=== PATIENT | female | born 1990 | race Caucasian/White ===

== ENCOUNTER 2022-09-17 12:54 | Outpatient (CLI) | payer OTHER, SELFPAY ==
--- NOTE | ~2022-09-17 | XR_ITS ---
XR abdomen/kub 1V 09/17/2022 13:09 Indication: Left lower abdominal pain Procedure: KUB Comparison: No prior studies for comparison. Findings: There is a catheter overlying the abdomen of uncertain origin, possibly ventriculoperitonea l. Clinically correlate. Nonobstructive bowel gas pattern. No evidence for renal stones. There are pe lvic phleboliths. No acute osseous abnormality. Impression: 1: No acute abdominal abnormality. Reviewed, dictated and finalized at location A. Impression: 1: No acute abdominal abnormality.
== END 2022-09-17 12:55 | disposition home or self-care (01) ==
PROVIDERS: PCP Family Medicine; Visit Provider Nurse Practitioner Family
DX: R10.32 Left lower quadrant pain (principal)
CPT/HCPCS: 74018

== ENCOUNTER 2023-07-10 13:22 | Outpatient (CLI) | payer OTHER, SELFPAY ==
[2023-07-10 14:38] LABS: HIV 1/2 Ab P24 Ag Result Negative (Negative)
[2023-07-10 15:39] LABS: Hepatitis B Surface Antigen Negative (Negative)
[2023-07-10 15:44] LABS: HAV RESULT Negative (Negative)
[2023-07-10 15:57] LABS: Hepatitis C Virus Antibody Negative (Negative)
[2023-07-11 09:42] LABS: Rapid Plasma Reagin Non-Reactive (NonReactive)
== END 2023-07-10 13:23 | disposition home or self-care (01) ==
LOC: ANHLAB 13:23
PROVIDERS: PCP Family Medicine; Visit Provider Obstetrics & Gynecology
DX: Z11.3 Encounter for screening for infections with a predominantly sexual mode of transmission (principal)
CPT/HCPCS: 36415; 86592; 86703; 86709; 86803; 87340; G0432

== ENCOUNTER 2023-10-06 15:33 | Outpatient (CLI) | payer OTHER, SELFPAY ==
--- NOTE | ~2023-10-06 | US_ITS ---
EXAMINATION: US thyroid DATE: 10/06/2023 16:00 INDICATION: Goiter. TECHNIQUE: Multiple ultrasound images of the thyroid were obtained. COMPARISON: Ultrasound 03/03/2018 FINDINGS: The right thyroid lobe measures 4.8 x 1.5 x 1.8 cm. The left thyroid lobe measures 5.6 x 1.3 x 1.6 c m. In the right thyroid lobe, there is a 10 mm solid, isoechoic, wider than tall nodule with periphe ral calcifications (TI-RADS TR4), stable from 03/03/18. In the right thyroid lobe, there is a 5 mm curtis id, hypoechoic, wider than tall nodule with smooth margins without echogenic foci (TR4). In the left thyroid lobe, there is a 12 mm solid, hypoechoic, wider than tall nodule with smooth margins without echogenic foci (TR4), increased from 6 mm on 03/03/18. In the left thyroid lobe, there is a 5 mm solid , hypoechoic, wider than tall nodule with smooth margins without echogenic foci (TR4). IMPRESSION: 1. Multinodular goiter. Thyroid ultrasound is recommended in one year. Reviewed, dictated and finalized at location A.
== END 2023-10-06 15:34 | disposition home or self-care (01) ==
LOC: ANHIMG 15:33
PROVIDERS: PCP Family Medicine; Visit Provider Family Medicine
DX: E04.2 Nontoxic multinodular goiter (principal)
CPT/HCPCS: 76536

== ENCOUNTER 2024-01-20 13:56 | Outpatient (CLI) | payer OTHER, SELFPAY ==
--- NOTE | ~2024-01-20 | XR_ITS ---
EXAMINATION: XR barium swallow modified DATE: 01/20/2024 14:20 INDICATION: Dysphagia. TECHNIQUE: The patient was given barium-containing material of multiple consistencies to swallow by t he speech pathologist while I performed fluoroscopy. Fluoroscopy exposure time was 0.9 minutes. The n umber of fluoroscopy images saved to the PACS was 1. Dose-area product was 0.507 Gy-cm^2. FINDINGS: The oral stage, pharyngeal stage, and cervical/esophageal stage of the swallow are normal. IMPRESSION: 1. Normal modified barium swallow. 2. Please refer to the speech therapy report for recommendations. Reviewed, dictated and finalized at location A.
--- NOTE | 2024-01-20 14:54 | REHSTMBS ---
Assessment and note entered by Mer Horne, [employer] Modified Barium Swallow Evaluation Feeding Type Recommended Oral Food Consistency Regular, Level 7 Liquid Consistency Thin (0) ST Clinical Summary MODIFIED BARIUM SWALLOW STUDY Patient reports she feels she has been becoming choked on both food and liquids in the past two months. She stated that she does not feel material enters the airway but that she can't get it down. As a result, she has begun taking more small bites and sips and now has developed a fear of becoming choked. The patient was viewed in the lateral position to the level of C5/C6. She was presented with uncontrolled sips of thin liquid contrast medium per straw first, then pudding mixed with semi- solid contrast medium, then both cracker pieces and fruit cocktail pieces coated with the semi- solid mixture. Patient elicited quick swallows with under-epiglottal coating during the first several swallows of thin liquid per straw, not replicated later in the session and not observed on any of the other presentations. Following these, all additional swallows for food and liquids were judged to be within normal limits. Results suggest the patient's swallowing skills are within normal limits. She was instructed to use head flexion (chin tuck) to assist with safe, comfortable swallowing while consuming meats and liquids and she voiced good understanding. No further Speech Therapy is indicated at this time. Thank you for this referral.
== END 2024-01-20 13:57 | disposition home or self-care (01) ==
LOC: ANHIMG 13:59
PROVIDERS: PCP Nurse Practitioner Family; Visit Provider Nurse Practitioner Family
DX: R13.10 Dysphagia, unspecified (principal); R11.0 Nausea
CPT/HCPCS: 92611

== ENCOUNTER 2024-02-11 02:30 | Day surgery (SDC) | payer OTHER, SELFPAY ==
[2024-01-23 09:27] VITALS: BMI 24.8
[2024-02-11 12:05] VITALS: BP 118/76; PULSE 81; RESP 16; TEMP 37.1; O2SAT 99; BMI 23.4
--- NOTE | 2024-02-11 12:19 | PM.HPGS ---
History of Present Illness History of Present Illness Consent: Risks, benefits, and alternatives have been discussed and questions answered. Patient agrees to proceed with procedure. Chief complaint: Nausea, Dysphagia Narrative: Alba Olvera is a 33 year old female here for egd, chronic nausea, had some dysphagia but resolved. Review of Systems Review of Systems: All systems reviewed & are unremarkable except as noted in HPI and below PMFSH Past Medical History Medical History Anxiety Bipolar disorder delivery delivered Depression Pseudotumor cerebri Pseudotumor cerebri PTSD (post-traumatic stress disorder) Surgical History Surgical History H/O brain surgery H/O dilation and curettage H/O: hysterectomy Family History Family History Other Depression Social History Social History (Updated 07/08/23 @ 14:22 by Mandy Huggins MA) Years smoked: 10 Smoking status: Never smoker Tobacco type: e-cigarettes/vaping Alcohol intake: current Substance use: former Substance use type: prescription drug Current Housing: Decline to Answer Concerned About Future Housing: Decline to Answer Difficulty Paying Gas/Electric Bills: Decline to Answer Difficulty Paying for Meds: Decline to Answer Currently Unemployed: Decline to Answer Education: Decline to Answer Difficulty w/ Childcare or Family Care: Decline to Answer Living arrangements: with family Additional living arrangements comments: kids Occupation/Education: unemployed Gender identity (if verbalized by the patient): Female Sexual Orientation (if Verbalized by the Patient): Straight or Heterosexual Meds Home Medications and Allergies Home Medications Medication Instructions Recorded Confirmed Type alprazolam 1 mg tablet 1 mg PO TID PRN Anxiety 05/14/22 02/11/24 History escitalopram oxalate 20 mg tablet 20 mg PO DAILY 05/14/22 02/11/24 History (Lexapro) lamotrigine 200 mg tablet 200 mg PO BID 05/14/22 02/11/24 History (Lamictal) tizanidine 4 mg capsule 4 mg PO QHS PRN muscle spasms 05/14/22 02/11/24 History fluconazole 150 mg tablet 150 mg PO WEEKLY 1 month #5 tabs 07/25/22 02/11/24 Rx (Diflucan) lubiprostone 24 mcg capsule 24 mcg PO BID #60 caps 01/09/24 02/11/24 Rx (Amitiza) promethazine 25 mg tablet 25 mg PO BID PRN nausea #60 tabs 01/09/24 02/11/24 Rx buprenorphine 8 mg-naloxone 2 mg 1 tablet sublingual DAILY 01/23/24 02/11/24 History sublingual tablet linaclotide 290 mcg capsule 290 mcg PO DAILY 01/23/24 02/11/24 History (Linzess) rizatriptan 5 mg tablet 5 mg PO DAILY PRN migraines 01/23/24 02/11/24 History Allergies Allergy/AdvReac Type Severity Reaction Status Date / Time sumatriptan Allergy Unknown SOB, CHEST Verified 02/11/24 12:10 PRESSURE Vital Signs Vital Signs - 24 hr 02/11/24 12:05 Temperature 98.7 F Pulse Rate 81 Respiratory Rate 16 Blood Pressure 118/76 Pulse Oximetry 99 Oxygen Delivery Room Air Exam Const: General: comfortable and no acute distress HENMT: Face/Nose/Sinus: Normal nares present Eyes: General: appearance normal, both eyes and all related structures Neck: Neck: no JVD Resp: Auscultation: clear to auscultation bilaterally Cardio: Rate: regular rate Rhythm: regular rhythm GI: Inspection: non-distended GI Palp: Yes Soft to palpation Skin: General skin exam: normal color Neuro: General: gait normal Speech: normal speech Extrem: General: normal to inspection Psych: Mental Status: mental status grossly normal Assessment and Plan Assessment and plan (1) Nausea: Code(s): R11.0 - Nausea Status: Acute Assessment and Plan: egd with bx
--- NOTE | 2024-02-11 12:28 | WPDANESEPPF ---
Anes - Initial Pre Proc Eval Procedure: Operation Date: 02/11/24 13:30 Proposed Procedures p Esophagogastroduodenoscopy - Pedro Narvaez MD Date/Time: 02/11/24 12:28 Surgeon: Pedro Narvaez MD Pre Op Diagnosis: Nausea, Dysphagia Patient Data Age: 33 Gender: F Height: 1.7 m Weight: 68 kg Last Vital Signs Temp 98.7 F 02/11/24 12:05 Pulse 81 02/11/24 12:05 Resp 16 02/11/24 12:05 BP 118/76 02/11/24 12:05 Pulse Ox 99 02/11/24 12:05 O2 Del Method Room Air 02/11/24 12:05 Allergies Allergy/AdvReac Type Severity Reaction Status Date / Time sumatriptan Allergy Unknown SOB, CHEST Verified 02/11/24 12:10 PRESSURE Home Medications Medication Instructions Recorded Confirmed Type alprazolam 1 mg tablet 1 mg PO TID PRN Anxiety 05/14/22 02/11/24 History escitalopram oxalate 20 mg tablet 20 mg PO DAILY 05/14/22 02/11/24 History (Lexapro) lamotrigine 200 mg tablet 200 mg PO BID 05/14/22 02/11/24 History (Lamictal) tizanidine 4 mg capsule 4 mg PO QHS PRN muscle spasms 05/14/22 02/11/24 History fluconazole 150 mg tablet 150 mg PO WEEKLY 1 month #5 tabs 07/25/22 02/11/24 Rx (Diflucan) lubiprostone 24 mcg capsule 24 mcg PO BID #60 caps 01/09/24 02/11/24 Rx (Amitiza) promethazine 25 mg tablet 25 mg PO BID PRN nausea #60 tabs 01/09/24 02/11/24 Rx buprenorphine 8 mg-naloxone 2 mg 1 tablet sublingual DAILY 01/23/24 02/11/24 History sublingual tablet linaclotide 290 mcg capsule 290 mcg PO DAILY 01/23/24 02/11/24 History (Linzess) rizatriptan 5 mg tablet 5 mg PO DAILY PRN migraines 01/23/24 02/11/24 History Patient hx anesthesia problems: none Family hx anesthesia problems: none Results Review: All pre-operative results and documents have been reviewed as part of the pre-operative evaluation. [facility] Past Medical History Medical History Anxiety Bipolar disorder delivery delivered Depression Pseudotumor cerebri Pseudotumor cerebri PTSD (post-traumatic stress disorder) Surgical History Surgical History H/O brain surgery H/O dilation and curettage H/O: hysterectomy Family History Family History Other Depression Social History Social History (Updated 07/08/23 @ 14:22 by Mandy Huggins MA) Years smoked: 10 Smoking status: Never smoker Tobacco type: e-cigarettes/vaping Alcohol intake: current Substance use: former Substance use type: prescription drug Current Housing: Decline to Answer Concerned About Future Housing: Decline to Answer Difficulty Paying Gas/Electric Bills: Decline to Answer Difficulty Paying for Meds: Decline to Answer Currently Unemployed: Decline to Answer Education: Decline to Answer Difficulty w/ Childcare or Family Care: Decline to Answer Living arrangements: with family Additional living arrangements comments: kids Occupation/Education: unemployed Gender identity (if verbalized by the patient): Female Sexual Orientation (if Verbalized by the Patient): Straight or Heterosexual Anes - Eval Final PreProcedure Day of Procedure 02/11/24 12:28 Patient weight: normal Heart: regular rate and rhythm Lungs: clear to auscultation Airway: Mallampati scale class II Neurological: alert and oriented Last oral intake: >/= 8 hours ASA classification: III Emergent: no Anesthetic plan: proceed Anesthesia type and monitoring: general GIVS and standard monitoring Results Review: All pre-operative results and documents have been reviewed as part of the pre-operative evaluation. Informed Consent: The patient's anesthetic plan and its attendant risks and benefits were discussed with the patient/family/POA. Questions were solicited and answers provided to the satisfaction of the patient/family/POA.
[2024-02-11] MEDS: LACTATED RINGERS 1,000 ML 150 ML IV CONT (12:29)
[2024-02-11 13:03] VITALS: BP 121/76; PULSE 65; RESP 13; O2SAT 100
[2024-02-11 13:13] VITALS: BP 120/78; PULSE 64; RESP 18; O2SAT 100
[2024-02-11 13:23] VITALS: BP 121/74; PULSE 75; RESP 20; O2SAT 100
== END 2024-02-11 13:30 | disposition home or self-care (01) ==
PROVIDERS: PCP Nurse Practitioner Family; Referring Provider Nurse Practitioner Family; Visit Provider Internal Medicine Gastroenterology
PROC: 0DJ08ZZ Inspection of Upper Intestinal Tract, Via Natural or Artificial Opening Endoscopic (ICD-10-PCS; CPT 43235; principal; 2024-02-11 13:30)
DX: K29.80 Duodenitis without bleeding (principal); K29.50 Unspecified chronic gastritis without bleeding; F41.9 Anxiety disorder, unspecified; F31.9 Bipolar disorder, unspecified; G93.2 Benign intracranial hypertension; F43.10 Post-traumatic stress disorder, unspecified; F17.290 Nicotine dependence, other tobacco product, uncomplicated; Z98.890 Other specified postprocedural states
CPT/HCPCS: 43239; 88305; J2001; J2704; J7120

== ENCOUNTER 2024-10-11 13:18 | Outpatient (CLI) | payer OTHER, SELFPAY ==
--- NOTE | ~2024-10-11 | MMUS_ITS ---
EXAMINATION: [facility] diagnostic january BI w carmen, US breast LT limited HISTORY: Left breast lump TECHNIQUE: 3-D tomosynthesis images of the breasts were performed and synthetic 2-D images were gener ated. CAD analysis was submitted and interpreted. High resolution limited left breast ultrasound was performed. COMPARISON: None BREAST PARENCHYMAL COMPOSITION:Dense: The breasts are extremely dense, which lowers the sensitivity o f mammography. FINDINGS: MAMMOGRAPHIC FINDINGS: No mass lesion or distortion seen in either breast. No mammographic abnormality identified. No suspic ious microcalcifications. ULTRASOUND: There is a questionable 1.7 x 2.4 x 0.5 cm superficial parallel mass, with relative appearance of fib roglandular tissue with possible thin capsule. No posterior shadowing evident. IMPRESSION: Questionable 1.7 x 2.4 x 0.5 cm benign-appearing mass at the 1:00 position left breast. Possible sma ll hamartoma versus focally dense fiber glandular tissue are considerations. This is likely benign, h owever 6 month follow-up ultrasound recommended to reassess additional stability. BI-RADS category 3, probably benign findings. Reviewed, dictated and finalized at location [facility]. IMPRESSION: Questionable 1.7 x 2.4 x 0.5 cm benign-appearing mass at the 1:00 position lef t breast. Possible small hamartoma versus focally dense fiber glandular tissue are considerations. This is likely benign, however 6 month follow-up ultrasound recommended to reassess additional stability. BI-RADS category 3, probably benign findings.
--- OUTSIDE RECORDS SUMMARY | 2024-10-11 13:23 | XMS_ITS | Clinical Summary ---
Author Organization [facility] Address [address] [place] [id number] Care Team Providers Care Endodontist Name Role Phone Socorro Patel MD Primary Care Provider [phone] Social History Tobacco Use Types Packs/Day Years Used Date Smoking Tobacco: Never Assessed Comments Unknown Sex and Gender Information Value Date Recorded Sex Assigned at Not on file Legal Sex Female 7:58 PM CDT Gender Identity Not on file Sexual Orientation Not on file Plan of Treatment Health Maintenance Due Date Last Done Comments Cervical Cancer Screening Pa p Smear (Age 30 to 64) Every 3 Years 1989 Annual Physical 1992 Hepatitis C 2007 DTaP, Tdap and Td Vaccines ( 1 - Tdap) 2008 Hepatitis B Vaccines (1 of 3 - 19+ 3-dose series) 2008 Cervical Cancer Screening Pa p with HPV Testing (Age 30 to 64) Every 5 Years 2019 Cervical Cancer Screening with HPV 2019 COVID-19 Vaccine (2023-2 5 season) 2024 HPV Vaccines Aged Out No longer eligi ble based on patient's age to complete this topic Meningococcal B Vaccine Aged Out No l onger eligible based on patient's age to complete this topic Meningococcal Vaccine Aged Out No braxton tarik eligible based on patient's age to complete this topic Pneumococcal Vaccine: Pediat rics (0 to 5 Years) and At-Risk Patients (6 to 49 Years) Aged Out No longer eligible b ased on patient's age to complete this topic RSV Immunizations Under 20 Months Aged Out No longer eligible based on patient's age to complete this topic Care Teams Endodontist Relationship Specialty Start Date End Date Socorro Patel MD [address] [place] [address] [place] [address] (work) PCP - General 12/14/13
--- OUTSIDE RECORDS SUMMARY | 2024-10-11 13:23 | XMS_ITS | Data Portability ---
Author Organization [place] [employer], Main Office Address [address] [place] [address] Assessment No assessment recorded. Plan of Treatment Reminders Order Date Submit Date Provider Last Modified By Organization Details Last Modified Time Details Appointments Any 30 2024 01:00P Khloe Estrada NP Not available Not available Not available Lab TSH, serum or plasma 2024 025 alor [facility] (Lab), [address] [place], [address], 10/08/2024 08:53:54 CBC w/ auto diff 2024 025 [facility] (Lab), [address] [place], [address], 10/08/2024 03:51:00 CMP, serum or plasma [address] (Lab), [address] [place], [address], 10/07/2024 16:29:14 vitamin D, 25-hydrox y, total, serum [address] (Lab), [address] [place], [address], 10/07/2024 16:28:28 TSH, serum or plasma 2023 024 KIERRA Not available 09/15/2023 19:59:11 hepatic function panel, serum 2023 024 KIERRA Not available 09/15/2023 19:37:48 BMP, serum or plasma 2023 KIERRA Not available 09/15/2023 19:37:53 CBC w/ auto diff 2023 KIERRA Not available 09/15/2023 19:21:26 Referral gastroent erologist referral - Please call patient to schedule an appointme nt. Thank you. [address] [facility], [address], [address], [place], [address], 01/13/2024 08:36:02 Procedures None recorded. Surgeries None recorded. Imaging US, thyroid - *Please call pt to schedule* 2023 KIERRA [facility], [address], [address], [place], [address], 10/06/2023 17:26:17 Medication Orders magnesium citrate oral solution 2023 024 [facility], [address] [place] [address] , [address], [place], [place], [id number], 10/05/2024 14:25:28 morphine ER 15 mg tablet,ex tended release [email or web address] , [address], [place], [place], [id number], 12/16/2023 14:04:42 oxycodone -acetamin ophen 10 mg-325 mg tablet [email or web address] , [address], [place], [place], [id number], 12/16/2023 14:04:46 Patient TargetsNo targets recorded. Patient InstructionsNo instructions recorded. Reason for Referral [employer] Referral for Hiatal hernia hiatal hernia, continued nausea Please call patient to schedule an appointment. Thank you. Referring Physician: Jakub Wallace, [facility] Medicine, Encounter Date: 12/16/2023 Results Created Date Observation Date Name Description Value Unit Range Abnormal Flag Note LastModifiedBy Organization Detail LastModifiedTime 09/15/19 24 09/15/2023 CBC/C OMPLE TE BLD COUNT W/DIF F white blood cells 4.8 x10'3 /uL 4.2-10 .8 Not Available [facility] (Lab) [address] [place], [address], 09/15/2023 19:21:25 09/15/19 24 09/15/2023 CBC/C OMPLE TE BLD COUNT W/DIF F red blood cells 4.46 x10'6 /uL 3.80-5 .20 Not Available [facility] (Lab) [address] [place], [address], 09/15/2023 19:21:25 09/15/19 24 09/15/2023 CBC/C OMPLE TE BLD COUNT W/DIF F hemoglobin 14.3 g/dL 12.0-1 5.6 Not Available [facility] (Lab) [address] [place], [address], 09/15/2023 19:21:25 09/15/19 24 09/15/2023 CBC/C OMPLE TE BLD COUNT W/DIF F hematocrit 41.4 % 35.7-4 5.7 Not Available [facility] (Lab) [address] [place], [address], 09/15/2023 19:21:25 09/15/19 24 09/15/2023 CBC/C OMPLE TE BLD COUNT W/DIF F mean red cell volume 92.8 fL 82.0-9 9.0 Not Available [facility] (Lab) [address] [place], [address], 09/15/2023 19:21:25 09/15/19 24 09/15/2023 CBC/C OMPLE TE BLD COUNT W/DIF F mean red cell hemoglobin 32.1 pg 27.0-3 3.0 Not Available [facility] (Lab) [address] [place], [address], 09/15/2023 19:21:25 09/15/19 24 09/15/2023 CBC/C OMPLE TE BLD COUNT W/DIF F mean RBC HGB concentratio n 34.5 g/dL 31.0-3 6.0 Not Available [facility] (Lab) [address] [place], [address], 09/15/2023 19:21:25 09/15/19 24 09/15/2023 CBC/C OMPLE TE BLD COUNT W/DIF F red cell distribution width 11.6 % 11.8-1 5.5 low Not Available [facility] (Lab) [address] [place], [address], 09/15/2023 19:21:25 09/15/19 24 09/15/2023 CBC/C OMPLE TE BLD COUNT W/DIF F platelets 253 x10'3 /uL 150-40 0 Not Available [facility] (Lab) [address] [place], [address], 09/15/2023 19:21:25 09/15/19 24 09/15/2023 CBC/C OMPLE TE BLD COUNT W/DIF F mean platelet volume 11.0 fL 9.0-12 .4 Not Available [facility] (Lab) [address] [place], [address], 09/15/2023 19:21:25 09/15/19 24 09/15/2023 CBC/C OMPLE TE BLD COUNT W/DIF F neutrophils 55.5 % 39.0-7 2.0 Not Available [facility] (Lab) [address] [place], [address], 09/15/2023 19:21:25 09/15/19 24 09/15/2023 CBC/C OMPLE TE BLD COUNT W/DIF F lymphocytes 29.0 % 16.0-4 7.0 Not Available [facility] (Lab) [address] [place], [address], 09/15/2023 19:21:25 09/15/19 24 09/15/2023 CBC/C OMPLE TE BLD COUNT W/DIF F monocytes 12.0 % 5.0-12 .0 Not Available [facility] (Lab) [address] [place], [address], 09/15/2023 19:21:25 09/15/19 24 09/15/2023 CBC/C OMPLE TE BLD COUNT W/DIF F eosinophils 2.7 % 1.0-7. 0 Not Available [facility] (Lab) [address] [place], [address], 09/15/2023 19:21:25 09/15/19 24 09/15/2023 CBC/C OMPLE TE BLD COUNT W/DIF F basophils 0.6 % 0.0-2. 0 Not Available [facility] (Lab) [address] [place], [address], 09/15/2023 19:21:25 09/15/19 24 09/15/2023 CBC/C OMPLE TE BLD COUNT W/DIF F immature granulocytes 0.2 % 0.00-0 .50 Not Available [facility] (Lab) [address] [place], [address], 09/15/2023 19:21:25 09/15/19 24 09/15/2023 CBC/C OMPLE TE BLD COUNT W/DIF F neutrophils, absolute count 2.67 x10'3 /uL 1.5-8. 0 Not Available [facility] (Lab) [address] [place], [address], 09/15/2023 19:21:25 09/15/19 24 09/15/2023 CBC/C OMPLE TE BLD COUNT W/DIF F lymphocytes, absolute count 1.40 x10'3 /uL 1.07-3 .43 Not Available [facility] (Lab) [address] [place], [address], 09/15/2023 19:21:25 09/15/19 24 09/15/2023 CBC/C OMPLE TE BLD COUNT W/DIF F monocytes, absolute count 0.58 x10'3 /uL 0.29-0 .99 Not Available [facility] (Lab) [address] [place], [address], 09/15/2023 19:21:25 09/15/19 24 09/15/2023 CBC/C OMPLE TE BLD COUNT W/DIF F eosinophils, absolute count 0.13 x10'3 /uL 0.02-0 .53 Not Available [facility] (Lab) [address] [place], [address], 09/15/2023 19:21:25 09/15/19 24 09/15/2023 CBC/C OMPLE TE BLD COUNT W/DIF F basophils, absolute count 0.03 x10'3 /uL 0.01-0 .08 Not Available [facility] (Lab) [address] [place], [address], 09/15/2023 19:21:25 09/15/19 24 09/15/2023 CBC/C OMPLE TE BLD COUNT W/DIF F immature granulocytes ,absolute 0.01 x10'3 /uL 0.00-0 .05 Not Available [facility] (Lab) [address] [place], [address], 09/15/2023 19:21:25 09/15/19 24 09/15/2023 CBC/C OMPLE TE BLD COUNT W/DIF F nucleated red blood cells 0.0 % -0 Not Available [facility] (Lab) [address] [place], [address], 09/15/2023 19:21:25 09/15/19 24 09/15/2023 CBC/C OMPLE TE BLD COUNT W/DIF F NRBC# 0.00 x10'3 /uL Not Available [facility] (Lab) [address] [place], [address], 09/15/2023 19:21:25 09/15/19 24 09/15/2023 HEPAT IC/LI CARLTON PANEL alkaline phosphatase 39 U/L 38-126 Not Available [facility] (Lab) [address] [place], [address], 09/15/2023 19:37:48 09/15/19 24 09/15/2023 HEPAT IC/LI CARLTON PANEL alanine aminotransfe rase 15 U/L 0-35 Not Available [facility] (Lab) [address] [place], [address], 09/15/2023 19:37:48 09/15/19 24 09/15/2023 HEPAT IC/LI CARLTON PANEL aspartate aminotransfe rase 26 U/L 15-37 Not Available [facility] (Lab) [address] [place], [address], 09/15/2023 19:37:48 09/15/19 24 09/15/2023 HEPAT IC/LI CARLTON PANEL bilirubin, total 0.70 mg/dL 0.20-1 .30 Not Available [facility] (Lab) [address] [place], [address], 09/15/2023 19:37:48 09/15/19 24 09/15/2023 HEPAT IC/LI CARLTON PANEL bilirubin, conjugated (direct) 0.00 mg/dL 0.00-0 .30 Not Available [facility] (Lab) [address] [place], [address], 09/15/2023 19:37:48 09/15/19 24 09/15/2023 HEPAT IC/LI CARLTON PANEL biliurubin,u ncong. (indirect) 0.40 mg/dL 0.00-1 .1 Not Available [facility] (Lab) [address] [place], [address], 09/15/2023 19:37:48 09/15/19 24 09/15/2023 HEPAT IC/LI CARLTON PANEL total protein 6.9 g/dL 6.3-8. 2 Not Available [facility] (Lab) [address] [place], [address], 09/15/2023 19:37:48 09/15/19 24 09/15/2023 HEPAT IC/LI CARLTON PANEL albumin 4.7 g/dL 3.4-5. 0 Not Available [facility] (Lab) [address] [place], [address], 09/15/2023 19:37:48 09/15/19 24 09/15/2023 HEPAT IC/LI CARLTON PANEL globulin 2.2 g/dL 2.6-4. 2 low Not Available [facility] (Lab) [address] [place], [address], 09/15/2023 19:37:48 09/15/19 24 09/15/2023 HEPAT IC/LI CARLTON PANEL A/G ratio 2.1 ratio 1.0-2. 0 high Not Available [facility] (Lab) [address] [place], [address], 09/15/2023 19:37:48 09/15/19 24 09/15/2023 BASIC METAB OLIC PANEL sodium 139 mmol/ L 137-14 5 Not Available [facility] (Lab) [address] [place], [address], 09/15/2023 19:37:53 09/15/19 24 09/15/2023 BASIC METAB OLIC PANEL potassium 3.8 mmol/ L 3.5-5. 1 Not Available [facility] (Lab) [address] [place], [address], 09/15/2023 19:37:53 09/15/19 24 09/15/2023 BASIC METAB OLIC PANEL chloride 105 mmol/ L 98-107 Not Available [facility] (Lab) [address] [place], [address], 09/15/2023 19:37:53 09/15/19 24 09/15/2023 BASIC METAB OLIC PANEL carbon dioxide 28 mmol/ L 22-30 Not Available [facility] (Lab) [address] [place], [address], 09/15/2023 19:37:53 09/15/19 24 09/15/2023 BASIC METAB OLIC PANEL anion gap 9.8 mmol/ L 14-22 low Not Available [facility] (Lab) [address] [place], [address], 09/15/2023 19:37:53 09/15/19 24 09/15/2023 BASIC METAB OLIC PANEL glucose 95 mg/dL 70-99 Not Available [facility] (Lab) [address] [place], [address], 09/15/2023 19:37:53 09/15/19 24 09/15/2023 BASIC METAB OLIC PANEL BUN 8 mg/dL 8-19 Not Available [facility] (Lab) [address] [place], [address], 09/15/2023 19:37:53 09/15/19 24 09/15/2023 BASIC METAB OLIC PANEL creatinine 0.85 mg/dL 0.66-1 .25 Not Available [facility] (Lab) [address] [place], [address], 09/15/2023 19:37:53 09/15/19 24 09/15/2023 BASIC METAB OLIC PANEL GFR >60 Refer ence Range : Saxton ge GFR Healt hy Adult : >60 mL/mi n/1.7 3 m2 Chron ic Kidne y Disea se: 15-60 mL/mi n/1.7 3 m2 Kidne y Failu re: <15/m L/min /1.73 m2 www.n iddk. nih.g ov The MDRD study equat ion has not been valid ated in child amalia <18 years of age; pregn ant women ; the elder ly >85 years of age; or in some racia l or ethni c subgr oups, such as Hispa nics. Outsi de the valid ated adin eters , estim ated GFR is less accur ate, requi ring clini bina judgm ent on a case- by-ca se basis . Clini bina inter preta tion for other races and ages must be made by the clini aria. The MDRD study equat ion has not been valid ated for the evalu ation of serum creat inine relat ed to nutri senthil l statu s or medic ation usage . For perso ns <18 years of age, a pedia tric GFR calcu lator is avail able on the [facility] websi te: https ://tomás gillis.thomas contreras/jaswant souza s/orquideao qi/gf r_cal culat or Not Available [facility] (Lab) [address] [place], [address], 09/15/2023 19:37:53 09/15/1909/15/2023 BASIC METAB OLIC PANEL calcium 9.9 mg/dL 8.4-10 .2 Not Available [facility] (Lab) [address] [place], [address], 09/15/2023 19:37:53 09/15/1909/15/2023 TSH thyroid-stim ulating hormone 0.860 uIU/m L 0.465- 4.680 Not Available [facility] (Lab) [address] [place], [address], 09/15/2023 19:59:11 10/06/19 24 10/06/2023 US, thyro id No observ ation record ed. [email or web address] [facility] [address] [facility] [address], [place], [address], 10/07/2023 16:48:24 01/20/20 24 01/20/2024 melania parsons ow study No observ ation record ed. [email or web address] [facility] [address] [facility] [facility] [address], [place], [address], 01/22/2024 23:30:13 Result Notes None recorded. Problems Name Problem SNOMED Code Status Onset Date Resolution Date Notes Provider Name and Address Organization Details Recorded Time Irritable bowel syndrome 67495345 Active Not Available [facility] 4 19:32:00 Ovarian hyperstimu lation syndrome 897103884 Active Not Available [facility] 4 19:32:00 Constipati on 57761505 Active [facility] 4 19:32:00 Acute sinusitis 69985084 Active Not Available [facility] 4 19:32:00 Backache with radiating pain 093264006 Active Not Available [facility] 4 19:32:00 History of idiopathic intracrani al hypertensi on 8928620167861 9108 Active 2020 Not Available [facility] 4 19:32:00 Pain in throat 812926150 Active Not Available [facility] 4 19:32:00 Non-neopla stic nevus 991635296 Active Not Available [facility] 4 19:32:00 Abdominal pain 47495832 Active Not Available [facility] 4 19:32:00 Sciatica 33722451 Active Not Available [facility] 4 19:32:01 Thyroid nodule 549673274 Active Not Available [facility] 4 19:32:01 Headache 19474257 Active Not Available [facility] 4 19:32:01 Myofascial pain 025181443 Active Not Available [facility] 4 19:32:01 Multiple laceration s 316756571 Active Not Available [facility] 4 19:32:01 Adnexal tenderness 039823980 Active Not Available [facility] 4 19:32:01 Scoliosis deformity of spine 889863802 Active Not Available [facility] 4 19:32:01 Secondary female infertilit y 89928287 Active Not Available [facility] 4 19:32:01 Vaginitis 66548105 Active Not Available [facility] 4 19:32:01 Bronchitis 17023590 Active Not Available [facility] 4 19:32:01 Genital herpes simplex 76009350 Active Not Available [facility] 4 19:32:01 Depressive disorder 74898011 Active Not Available [facility] 4 19:32:01 Sinusitis 77530384 Active Not Available [facility] 4 19:32:01 Goiter 8293799 Active Not Available [facility] 4 19:32:01 Migraine 38129307 Active Not Available [facility] 4 19:32:01 Fever 055486171 Active Not Available [facility] 4 19:32:01 Menorrhagi a 083286582 Active Not Available [facility] 4 19:32:01 Sensory disturbanc e in limb 600441371 Active Not Available [facility] 4 19:32:01 Hemochroma tosis 973327298 Active Not Available [facility] 4 19:32:01 Dysphagia 17353586 Active Not Available [facility] 4 19:32:01 Cervicovag inal cytology: Low grade squamous intraepith elial lesion 391869985 Active Not Available [facility] 4 19:32:01 Abnormal anal Papanicola ou smear 718073977 Active Not Available [facility] 4 19:32:01 Seasonal allergy 064179207 Active Not Available [facility] 4 19:32:01 Anxiety 12641024 Active Not Available [facility] 4 19:32:01 Carpal tunnel syndrome 11135881 Active Not Available [facility] 4 19:32:01 Vulvitis 11822282 Active Not Available [facility] 4 19:32:01 Chronic endometrit is 74726125 Active Not Available [facility] 4 19:32:01 Supraventr icular tachycardi a 2711146 Active Not Available [facility] 4 19:32:01 Otitis media 75387671 Active Not Available [facility] 4 19:32:01 Urinary tract infectious disease 31939647 Active Not Available [facility] 4 19:32:01 Candidal vulvovagin itis 42679385 Active Not Available [facility] 4 19:32:01 Moderate bipolar disorder 50428191 Active Not Available [facility] 4 19:32:01 Cyst of ovary 22290957 Active Not Available [facility] 4 19:32:01 Loss of appetite 01843674 Active Not Available [facility] 4 19:32:01 Irregular periods 80785179 Active Not Available [facility] 4 19:32:01 Fatigue 41550457 Active Not Available [facility] 4 19:32:01 Urge incontinen ce of urine 93698389 Active Not Available [facility] 4 19:32:01 Degenerati on of lumbar interverte bral disc 22441352 Active 2022 Not Available [facility] 4 19:32:01 Left lower quadrant pain 412820210 Active 2022 Not Available [facility] 4 19:32:01 Chronic idiopathic constipati on 85974024 Active 2022 Not Available [facility] 4 19:32:01 Therapeuti c opioid induced constipati on 7134648554065 02 Active 2022 Not Available [facility] 4 19:32:00 Ventriculo peritoneal shunt Active 2022 Not Available [facility] 4 19:32:01 Nausea 211776459 Active 2022 Not Available [facility] 4 19:32:01 Acne 32987555 Active 2022 Not Available [facility] 4 19:32:00 Elevated blood-pres sure reading without diagnosis of hypertensi on 878126334 Active 2023 Socorro Patel MD [address] [facility], [facility] [address], [place], [address] , [facility] 4 09:15:36 Herpes labialis 6826966 Active 2023 Socorro Patel MD [address] [facility], [facility] [address], [place], [address] , [facility] 4 17:42:06 Hiatal hernia 36684057 Active 2023 GARY Hnery [address] [facility] [place] [address], [place], [address] , [facility] 4 14:27:31 Vitamin D deficiency 62404604 Active 2024 GARY Alberto [address] [facility], [place] [address], [place], [address] , [facility] 5 14:49:37 Problem Notes None recorded. Procedures Surgical History Date Name Laterality Status Provider Name and Address Organization Details Recorded Time 9 CARDIOTHORACIC SURGEON Surgery completed Not Available [facility] 08/01/19 06:40:12 5 CARDIOTHORACIC SURGEON Surgery completed Not Available [facility] 08/01/19 06:40:12 5 CARDIOTHORACIC SURGEON Surgery completed Not Available [facility] 08/01/19 06:40:12 4 CARDIOTHORACIC SURGEON Surgery completed Not Available [facility] 08/01/19 06:40:12 3 CARDIOTHORACIC SURGEON Procedure completed Not Available [facility] 2022 06:40:12 2 CARDIOTHORACIC SURGEON Surgery completed Not Available [facility] 08/01/19 23 06:40:12 1 CARDIOTHORACIC SURGEON Surgery completed Not Available [facility] 08/01/19 06:40:12 0 CARDIOTHORACIC SURGEON Surgery completed Not Available [facility] 08/01/19 06:40:12 other completed Not Available [facility] 06/2022 06:40:12 section completed Not Available [facility] 07/31/2022 06:40:12 Imaging Results Imaging Date Name Status LastModified by Organiz ation Details LastModified Time 10/06/2023 US, thyroid completed llalor [facility] [address] [facility] [address], [address], 10/07/2023 16:48:24 01/20/2024 barium swallow study completed [facility] [address] [place] [address] [address], [place], [address], 01/22/2024 23:30:13 Procedure Notes None recorded. Medical Equipment None Reported. Allergies Allergen ID Allergen Name Allergen Category Reaction Reaction Severity Criticality Documentation Date Start Date Code Code System Note Provider Name and Address Organization Details Recorded Time 64156 Imitrex medicatio n chest pain severe Not available 07/31/2022 98254 3 RxNorm can't breat he Not Available formerly [facility] 3 06:53:46 19527 sumatript an medicatio n vomiting severe Not available 07/31/2022 03228 RxNorm Not Available formerly [facility] 3 06:53:46 01680 Maxalt medicatio n chest pain severe Not available 07/31/2022 88678 8 RxNorm Not Available formerly [facility] 3 06:53:46 Medications Name Sig Start Date Stop Date Status Note LastModified by Organization Details LastModified Time quetiapin e 25 mg tablet 1 po qhs x 7 day then increase to 2 po qhs x 7 days then increase to 3 po qhs x 7 days then increase to 4 po qhs 01/10 completed Not Available Not Available Not Available fluoxetin e 40 mg capsule 1 po qday 04/16 completed Not Available Not Available Not Available cyclobenz aprine 10 mg tablet 1 po tid prn spasm 03/21 completed Not Available Not Available Not Available tretinoin 0.1 % topical cream APPLY TO AFFECTED AREA(S) EVERY NIGHT AT BEDTIME active Not Available Not Available No t Available amoxicill in 500 mg capsule Take 2 capsules PO every 8 hours x 10 days active Not Available Not Available No t Available furosemid e 40 mg tablet 09/09 completed Not Available Not Available Not Available Miralax 17 gram/dose oral powder 1 capful in liquid po qday prn constipa tion active Not Available Not Available No t Available Levbid 0.375 mg tablet,ex tended release Take 1 tablet 3 times a day by oral route as needed. 2012 active Not Available Not Available Not Avai lable fentanyl 50 mcg/hr transderm al patch Apply 1 patch every 72 hours by transder mal route. 03/21 completed Not Available Not Available Not Available oxcarbaze pine 150 mg tablet 10/05 completed Not Available Not Available Not Available venlafaxi ne ER 37.5 mg capsule,e xtended release 24 hr 01/10 completed Not Available Not Available Not Available doxycycli ne hyclate 100 mg capsule 1 po qday 10/05 completed Not Available Not Available Not Available lamotrigi ne 200 mg tablet TAKE 1 TABLET BY MOUTH TWICE DAILY FOR 3 DAYS active Not Available Not Available No t Available nicotine 14 mg/24 hr daily transderm al patch 10/05 completed Not Available Not Available Not Available clindamyc in HCl 300 mg capsule TAKE 1 CAPSULE BY MOUTH FOUR TIMES DAILY 10/05 completed Not Available Not Available Not Available doxazosin 1 mg tablet 10/05 completed Not Available Not Available Not Available alprazola m 1 mg tablet TAKE 1 TABLET BY MOUTH EVERY 8 HOURS NEEDED active Not Available Not Available No t Available tizanidin e 4 mg tablet TAKE ONE TABLET BY MOUTH EVERY EIGHT HOURS prn active Not Available Not Available No t Available fluconazo le 150 mg tablet TAKE 1 TABLET BY MOUTH ONCE A WEEK 09/14 completed Not Available Not Available Not Available metoprolo l succinate ER 50 mg tablet,ex tended release 24 hr TAKE ONE TABLET BY MOUTH EVERY DAY 05/24 completed PRN Not Available Not Available Not Available clomiphen e citrate 50 mg tablet TAKE 1 TABLET BY MOUTH EVERY DAY FOR 5 DAYS UTD. INTERCOU RSE ON DAY 12-14-16 OF MENSTRUA L CYCLE. 08/30 completed Not Available Not Available Not Available valacyclo vir 1 gram tablet 2 po bid x 1 day 10/05 completed Not Available Not Available Not Available hydrocodo ne 5 mg-acetam inophen 325 mg tablet TK 1 T PO Q 6 H PRN FOR PAIN 08/30 completed Not Available Not Available Not Available prazosin 1 mg capsule TAKE 1 CAPSULE BY MOUTH EVERY NIGHT AT BEDTIME 11/19 completed Not Available Not Available Not Available ondansetr on HCl 8 mg tablet TAKE ONE TABLET BY MOUTH EVERY EIGHT HOURS NEEDED 01/10 completed Not Available Not Available Not Available sucralfat e 1 gram tablet 08/30 completed Not Available Not Available Not Available promethaz ine 12.5 mg tablet 08/30 completed Not Available Not Available Not Available naltrexon e 50 mg tablet active Not Available Not Available Not Available metronida zole 0.75 % (37.5 mg/5 gram) vaginal gel Insert 1 applicat orful every day by vaginal route at bedtime for 5 days. 07/20 completed Not Available Not Available Not Available prednison e 20 mg tablet TAKE 1 TABLET BY MOUTH EVERY DAY FOR 5 DAYS 11/06 completed Not Available Not Available Not Available rizatript an 10 mg tablet DISSOLVE 1 TABLET IN MOUTH ONE TIME DAILY NEEDED FOR MIGRAINE 2022 active Not Available Not Available Not Avai lable sertralin e 100 mg tablet Take 2 tablets every day by oral route. 12/22 completed Not Available Not Available Not Available triazolam 0.125 mg tablet 1 po qhs 10/05 completed Not Available Not Available Not Available quetiapin e 200 mg tablet 05/08 completed Not Available Not Available Not Available Doc-Q-Lac e 100 mg capsule 07/04 completed Not Available Not Available Not Available clonazepa m 1 mg tablet Take 1 tablet 3 times a day by oral route. 02/02 completed Not Available Not Available Not Available Zithromax Z-Nigel 250 mg tablet TAKE 2 TABLETS (500 MG) BY ORAL ROUTE ONCE DAILY FOR 1 DAY THEN 1 TABLET (250 MG) BY ORAL ROUTE ONCE DAILY FOR 4 DAYS 11/06 completed Not Available Not Available Not Available acetazola mide 250 mg tablet 01/10 completed Not Available Not Available Not Available Ultram 50 mg tablet Take 1 tablet every 6 hours by oral route as needed. 08/30 completed Not Available Not Available Not Available penicilli n V potassium 500 mg tablet 01/10 completed Not Available Not Available Not Available topiramat e 25 mg tablet 09/11 completed Not Available Not Available Not Available metronida zole 500 mg tablet Take 1 tablet every 12 hours by oral route for 7 days. 10/05 completed Not Available Not Available Not Available tretinoin 0.05 % topical cream APPLY TO THE AFFECTED AREA(S) BY TOPICAL ROUTE ONCE DAILY AT BEDTIME 06/03 completed Not Available Not Available Not Available valacyclo vir 500 mg tablet TAKE 1 TABLET BY MOUTH TWICE DAILY 10/05 completed Not Available Not Available Not Available morphine ER 30 mg tablet,ex tended release 1 po bid. Weaning down/off 11/02 completed Not Available Not Available Not Available sulfameth oxazole 800 mg-trimet hoprim 160 mg tablet TAKE 1 TABLET BY MOUTH TWICE DAILY 09/14 completed Not Available Not Available Not Available hydrocodo ne 10 mg-acetam inophen 325 mg tablet TAKE ONE TABLET BY MOUTH FOUR TIMES DAILY NEEDED active Not Available Not Available No t Available doxycycli ne monohydra te 100 mg tablet TAKE 1 TABLET BY MOUTH TWICE DAILY 10/05 completed Not Available Not Available Not Available quetiapin e 100 mg tablet TAKE ONE TABLET BY MOUTH AT BEDTIME 11/19 completed Not Available Not Available Not Available amitripty line 50 mg tablet Take 1 tablet every day by oral route at bedtime. active Not Available Not Available No t Available ketorolac 30 mg/mL (1 mL) injection solution 1 ml IM x 1 03/21 completed [id number] Not Available Not Available Not Available butalbita l-acetami nophen-ca ffeine 50 mg-325 mg-40 mg tablet TAKE ONE TABLET BY MOUTH EVERY SIX HOURS NEEDED FOR HEADACHE 10/05 completed Not Available Not Available Not Available amoxicill in 500 mg tablet Take 1 tablet every 12 hours by oral route for 10 days. 09/19 completed Not Available Not Available Not Available acyclovir 800 mg tablet 1 po tid x 7 days 04/17 completed Not Available Not Available Not Available Kenalog 40 mg/mL suspensio n for injection 1 ml IM x 1 active Not Available Not Available No t Available meloxicam 7.5 mg tablet active Not Available Not Available Not Available oxycodone -acetamin ophen 5 mg-325 mg tablet TAKE 2 TABLETS BY MOUTH EVERY 8 HOURS 02/10 completed Not Available Not Available Not Available alprazola m 0.5 mg tablet Take 1 tablet every 8 hours by oral route as needed for 30 days. active Not Available Not Available No t Available propranol ol 10 mg tablet Take 1 tablet every day by oral route as directed . 10/05 completed Not Available Not Available Not Available hydrocodo ne 10 mg-acetam inophen 500 mg tablet Take 1 tablet 3 times a day by oral route as needed. active Not Available Not Available No t Available amoxicill in 875 mg tablet Take 1 tablet every 12 hours by oral route for 7 days. 11/19 completed Not Available Not Available Not Available potassium chloride ER 20 mEq tablet,ex tended release(p art/cryst ) TK 2 TS PO BID 09/09 completed Not Available Not Available Not Available amitripty line 25 mg tablet active Not Available Not Available No t Available oxycodone -acetamin ophen 10 mg-325 mg tablet TAKE 1 TABLET BY MOUTH EVERY 8 HOURS NEEDED FOR BREAKTHR OUGH PAIN 12/15 completed Not Available Not Available Not Available trazodone 100 mg tablet TAKE ONE TABLET BY MOUTH AT BEDTIME NEEDED active Not Available Not Available No t Available lorazepam 2 mg tablet Take 1 tablet(s ) 3 times a day by oral route. active Not Available Not Available No t Available morphine ER 60 mg tablet,ex tended release Take 1 tablet every 12 hours by oral route. active Not Available Not Available No t Available phenazopy ridine 100 mg tablet TK 1 T PO TID active Not Available Not Available No t Available rizatript an 10 mg disintegr ating tablet 1 po qday prn migraine , do not exceed 1 tab in 24 hours active Not Available Not Available No t Available fluvoxami ne 100 mg tablet TAKE 1 TABLET BY MOUTH EVERY EVENING 11/19 completed Not Available Not Available Not Available doxycycli ne monohydra te 100 mg capsule 08/30 completed Not Available Not Available Not Available triamcino lone acetonide 0.1 % topical ointment active Not Available Not Available Not Available misoprost ol 200 mcg tablet Take 2 tablets by oral route at bedtime for 1 day. active Not Available Not Available No t Available promethaz ine 25 mg/mL injection solution 1 ml IM x 1 03/21 completed Not Available Not Available Not Available clonazepa m 2 mg tablet TAKE ONE TABLET BY MOUTH THREE TIMES A DAY NEEDED FOR ANXIETY active Not Available Not Available No t Available promethaz ine 25 mg tablet TAKE ONE TABLET BY MOUTH EVERY FOUR TO SIX HOURS NEEDED FOR NAUSEA active Not Available Not Available No t Available metoprolo l tartrate 50 mg tablet TAKE ONE TABLET BY MOUTH TWICE DAILY 08/30 completed Not Available Not Available Not Available butalbita l-aspirin -caffeine 50 mg-325 mg-40 mg capsule 03/21 completed Not Available Not Available Not Available gabapenti n 300 mg capsule 09/11 completed Not Available Not Available Not Available magnesium citrate oral solution drink 1 bottle daily 10/05 completed Not Available Not Available Not Available diclofena c sodium 75 mg tablet,de layed release TAKE 1 TABLET BY MOUTH TWICE DAILY NEEDED 11/06 completed Not Available Not Available Not Available morphine ER 15 mg tablet,ex tended release TAKE 1 TABLET BY MOUTH EVERY DAY 12/15 completed Not Available Not Available Not Available acyclovir 200 mg capsule Take 1 capsule every 4 hours by oral route for 5 days. active Not Available Not Available No t Available zolpidem 5 mg tablet TAKE ONE TABLET BY MOUTH NIGHTLY AT BEDTIME NEEDED 11/11 completed Not Available Not Available Not Available furosemid e 20 mg tablet TK 3 TS PO BID 09/09 completed Not Available Not Available Not Available fluvoxami ne 50 mg tablet 11/19 completed Not Available Not Available Not Available mirtazapi ne 15 mg tablet active Not Available Not Available Not Available gabapenti n 100 mg capsule Take 1 capsule every day by oral route. active Not Available Not Available No t Available metoprolo l succinate ER 25 mg tablet,ex tended release 24 hr TAKE 1 TABLET BY MOUTH EVERY DAY active Not Available Not Available No t Available diazepam 10 mg tablet 11/21 completed Not Available Not Available Not Available ibuprofen 600 mg tablet TK 1 T PO Q 8 H PRN FOR PAIN. TAKE WITH FOOD active Not Available Not Available No t Available fentanyl 25 mcg/hr transderm al patch APPLY ONE PATCH EXTERNAL LY EVERY 72 HOURS 07/04 completed Not Available Not Available Not Available levofloxa raf 500 mg tablet active Not Available Not Available No t Available oxycodone -acetamin ophen 7.5 mg-325 mg tablet 03/21 completed Not Available Not Available Not Available methylpre dnisolone 4 mg tablets in a dose pack active Not Available Not Available Not Available albuterol sulfate HFA 90 mcg/actua tion aerosol inhaler Inhale 2 puffs every 4-6 hours by inhalati on route. 2012 active Not Available Not Available Not Avai lable oxybutyni n chloride 5 mg tablet Take 1 tablet every 12 hours by oral route as needed. active Not Available Not Available No t Available ondansetr on 4 mg disintegr ating tablet 09/09 completed Not Available Not Available Not Available fluoxetin e 20 mg capsule 01/10 completed Not Available Not Available Not Available fluticaso ne propionat e 50 mcg/actua tion nasal spray,[facility] INHALE ONE SPRAY BY MOUTH ONCE DAILY 01/10 completed Not Available Not Available Not Available Diflucan 200 mg tablet Take 1 tablet every other day by oral route for 3 days. 01/29 completed Not Available Not Available Not Available lamotrigi ne 100 mg tablet 1.5 tab po bid active Not Available Not Available No t Available prazosin 2 mg capsule active Not Available Not Available Not Available naproxen 500 mg tablet 08/30 completed Not Available Not Available Not Available diazepam 5 mg tablet 07/04 completed Not Available Not Available Not Available doxazosin 2 mg tablet Take 1 tablet every day by oral route. active Not Available Not Available No t Available amoxicill in 875 mg-potass ium clavulana te 125 mg tablet TAKE 1 TABLET BY MOUTH TWICE DAILY 11/06 completed Not Available Not Available Not Available oxycodone 5 mg tablet 01/23 completed Not Available Not Available Not Available Kariva (28) 0.15 mg-0.02 mg (21)/0.01 mg (5) tablet TAKE 1 TABLET BY MOUTH EVERY DAY 09/17 completed Not Available Not Available Not Available Q-Dryl 12.5 mg/5 mL oral liquid 07/04 completed Not Available Not Available Not Available escitalop lazaro 10 mg tablet TAKE ONE TABLET BY MOUTH EVERY DAY NEEDS APPOINTM ENT FOR REFILLS 11/19 completed Not Available Not Available Not Available escitalop lazaro 20 mg tablet TAKE 1 TABLET BY MOUTH EVERY DAY active Not Available Not Available No t Available Sprintec (28) 0.25 mg-0.035 mg tablet Take 1 tablet every day by oral route. 08/30 completed Not Available Not Available Not Available aripipraz ole 5 mg tablet 1 po qday 10/05 completed Not Available Not Available Not Available bupropion HCl XL 150 mg 24 hr tablet, extended release TAKE ONE TABLET BY MOUTH ONCE DAILY 03/21 completed Not Available Not Available Not Available Cymbalta 30 mg capsule,d elayed release Take 1 capsule twice a day by oral route. active Not Available Not Available No t Available Sure Comfort Insulin Syringe 1 mL 30 gauge x 1/2 active Not Available Not Available Not Available lactulose 10 gram/15 mL oral solution Take 15 mL every day by oral route. 03/21 completed Not Available Not Available Not Available fentanyl 12 mcg/hr transderm al patch Apply 1 patch every 72 hours by transder mal route. 02/04 completed Not Available Not Available Not Available metronida zole 1 % topical gel APPLY TOPICALL Y NIGHTLY FOR 5 DAYS 11/06 completed Not Available Not Available Not Available Vicodin 10/500MG 1 PO TID PRN 2012 active Not Available Not Available Not Avai lable metoprolo l tartrate 12.5 1 PO BID 2012 active Not Available Not Available Not Avai lable Emily 160MG 1PO QDAY 09/22 completed Not Available Not Available Not Available Amitiza 24 mcg capsule 1 BID 09/11 completed Not Available Not Available Not Available aripipraz ole 2 mg tablet TAKE 1 TABLET BY MOUTH DAILY 11/06 completed Not Available Not Available Not Available quetiapin e 50 mg tablet 1.5 po qhs 11/19 completed Not Available Not Available Not Available quetiapin e ER 300 mg tablet,ex tended release 24 hr 05/08 completed Not Available Not Available Not Available quetiapin e ER 200 mg tablet,ex tended release 24 hr TAKE 1 TABLET BY MOUTH EVERY NIGHT AT BEDTIME 11/19 completed Not Available Not Available Not Available oxycodone 10 mg tablet Take 1 tablet 4 times a day by oral route as needed. 03/21 completed Prescrib ed by pain mgmt Not Available Not Available Not Available desvenlaf axine succinate ER 50 mg tablet,ex tended release 24 hr 01/10 completed Not Available Not Available Not Available desvenlaf axine succinate ER 100 mg tablet,ex tended release 24 hr 01/10 completed Not Available Not Available Not Available quetiapin e ER 150 mg tablet,ex tended release 24 hr 1 po qhs 04/16 completed Not Available Not Available Not Available Dexilant 30 mg capsule, delayed release Take 1 capsule every day by oral route. 2012 active Not Available Not Available Not Avai lable buprenorp ro 8 mg-naloxo ne 2 mg sublingua l film 10/05 completed Not Available Not Available Not Available EpiPen 2-Nigel 0.3 mg/0.3 mL injection , auto-inje ctor 09/11 completed Not Available Not Available Not Available Linzess 145 mcg capsule Take 1 capsule every day by oral route. 05/07 completed Not Available Not Available Not Available Linzess 290 mcg capsule Take 1 capsule every day by oral route. 10/05 completed Not Available Not Available Not Available marijuana (cannabis ) Medical marijuan a 10/05 completed Not Available Not Available Not Available Rexulti 2 mg tablet Take 1 tablet every day by oral route. 01/10 completed Not Available Not Available Not Available naloxone 4 mg/actuat ion nasal spray 11/06 completed Not Available Not Available Not Available Vraylar 1.5 mg capsule 1 po qday x 1 day then 2 po qday thereaft er 02/27 completed Not Available Not Available Not Available Vraylar 3 mg capsule Take 1 capsule every day by oral route in the morning. 10/05 completed Not Available Not Available Not Available Caplyta 42 mg capsule active Not Available Not Available Not Available Vitals Date Recorded Body height Body mass index (BMI) Body weight Body temperature Heart rate Oxygen saturation Oxygen saturation in Arterial blood by Pulse oximetry Systolic blood pressure Diastolic blood pressure Provider Name and Address Organization Details Last Updated DateTime 4 170.18 cm 25.2 kg/m2 72873.3 7 g 97.7 [degF] 115 /min 99 % 99 % 156 mm[Hg] 84 mm[Hg] Rochelle Greene RN [facility] [employer] [facility] 4 09:01:08 Date Recorded Body height Body mass index (BMI) Body weight Body temperature Heart rate Oxygen saturation Oxygen saturation in Arterial blood by Pulse oximetry Systolic blood pressure Diastolic blood pressure Provider Name and Address Organization Details Last Updated DateTime 4 170.18 cm 27.1 kg/m2 21627.4 8 g 98 [degF] 81 /min 100 % 100 % 132 mm[Hg] 88 mm[Hg] Kinga Harris RN [facility] [employer] [facility] 4 14:06:41 Date Recorded Body height Body mass index (BMI) Body weight Body temperature Heart rate Oxygen saturation Oxygen saturation in Arterial blood by Pulse oximetry Systolic blood pressure Diastolic blood pressure Provider Name and Address Organization Details Last Updated DateTime 5 170.18 cm 19.3 kg/m2 11095.8 6 g 98 [degF] 92 /min 99 % 99 % 110 mm[Hg] 80 mm[Hg] DOMENICO De Oliveira [facility] [employer] [facility] 5 14:38:03 Date Recorded Body height Provider Name an d Address Organization Details Last Updated DateTime 10/07/2024 170.18 cm Mellisa Monroe RN [facility] [employer] [facility] 10/07/2024 15:34:10 Social History Question Answer Notes LastModified by Organizat ion Details LastModified Time Tobacco Smoking Status Never Smoker vaping Not Available [employer] 07/31/2022 06:40:04 What Is Your Level Of Caffeine Consumption? Moderate [id number] Information not available 07/31/2022 How Much Tobacco Do You Chew? None [id number] Information not available 07/31/2022 In The 14 Days Before Symptom Onset, Have You Had Close Contact With A Laboratory-confi rmed COVID-19 While That Case Was Ill? No [id number] Information not available 07/31/2022 In The 14 Days Before Symptom Onset, Have You Had Close Contact With A Person Who Is Under Investigation For COVID-19 While That Person Was Ill? No [id number] Information not available 07/31/2022 What Type Of Diet Are You Following? REGULAR [id number] Information not available 07/31/2022 Do You Use Insect Repellent Routinely? No Information not available 10/05/2024 Where Do You Live? SingleLevelHouse Information not available 10/05/2024 What Was The Date Of Your Most Recent Tobacco Screening? 10/05/2024 Information not available 10/05/2024 Have You Ever Been Counseled For Unhealthy Alcohol Use? No [id number] Information not available 07/31/2022 Do You Have Any Pets? Yes Information not available 10/05/2024 What Is Your Relationship Status? [id number] Information not available 07/31/2022 Do You Use Your Seat Belt Or Car Seat Routinely? Yes [id number] Information not available 07/31/2022 Do You Have Smoke And Carbon Monoxide Detectors In Your Home? Yes Information not available 10/05/2024 Are There Any Smokers In Your House? No Information not available 10/05/2024 How Much Tobacco Do You Smoke? No [id number] Information not available 07/31/2022 Do You Use Sunscreen Routinely? No Information not available 10/05/2024 Has Tobacco Cessation Counseling Been Provided? No [id number] Information not available 07/31/2022 Have You Recently Traveled Abroad? No [id number] Information not available 07/31/2022 Have You Used IV Drugs? No [id number] Information not available 07/31/2022 Do You Have Any Dietary Restrictions? No [id number].[id number] Information not available 07/31/2022 Sex: Female Functional Status Question Answer Note LastModified by Organizat ion Details LastModified Time Do you use any illicit or recreational drugs? No Information not available 10/05/2024 Do you or have you ever used any other forms of tobacco or nicotine? Yes vape [id number] Information not available 07/31/2022 What is your level of alcohol consumption? Occasional [id number] Information not available 07/31/2022 Do you or have you ever used smokeless tobacco? Never used smokeless tobacco [id number].[id number] Information not available 07/31/2022 Are you currently employed? No Information not available 10/05/2024 Do you or have you ever used e-cigarettes or vape? Never used electronic cigarettes [id number] Information not available 07/31/2022 What is your exercise level? Moderate [id number].[id number] Information not available 07/31/2022 Mental Status Question Answer Note LastModified by Organizat ion Details LastModified Time Do you feel stressed (tense, restless, nervous, or anxious, or unable to sleep at night)? [id number] Information not available 07/31/2022 Family History Relationship Description Onset Age of this Age Resolved Age Notes LastModified by Organization Details LastModified Time Paternal Grandmother Malignant tumor of breast [id number] Not available 07/31/2022 06:40:15 Notes:bipolar, anxiety, migr aines, svt, thyroid nodules Medical History Condition Response ARTHRITIS Y HEADACHES/MIGRAINES Y ANXIETY DISORDER Y HEART DISEASE/HEART PROBLEMS Y BOWEL PROBLEMS Y HEART ARRHYTHMIA Y DEPRESSION (INCLUDING POST ) Y HERPES Y Gynecological History Statement/Question Response How many live births 2 Abnormal Pap Y Date of LMP Date of Last Pap 02/21/2015 Current Control Method Hysterectom y Age at Menarche 11 Breast Problems no Obstetrics History GPAL:G 2 P 2 0 0 2 Type Value Full Term 2 Living 2 Total 2 Immunizations Vaccine Type Date Status Note Provider Nam e and Address Organization Details Recorded Time Influenza, split virus, quadrivalent, PF 3 completed Socorro Patel MD [address] [facility], [place] [address], [place], [address], [facility] [employer] 04/30/2023 19:23:45 Influenza, split virus, trivalent, preservative 2 completed Not Available [facility] 06/17/2023 19:32:02 Influenza, split virus, trivalent, preservative 5 completed Not Available [facility] 06/17/2023 19:32:02 Influenza, split virus, quadrivalent, PF 8 completed Not Available [facility] 06/17/2023 19:32:02 Influenza, split virus, quadrivalent, preservative 6 completed Not Available formerly [facility] 06/17/2023 19:32:02 Influenza, split virus, quadrivalent, PF 1 completed Not Available formerly [facility] 06/17/2023 19:32:02 Influenza, split virus, quadrivalent, PF 4 completed Not Available formerly [facility] 06/17/2023 19:32:02 Influenza, split virus, quadrivalent, PF 0 completed Not Available formerly [facility] 06/17/2023 19:32:02 Tdap 4 completed Not Available formerly [facility] 06/17/2023 19:32:02 Influenza, split virus, trivalent, PF 3 completed Not Available formerly [facility] 06/17/2023 19:32:02 Past Encounters Encounter ID Performer Location Encounter Start Date Encounter Closed Date Diagnosis/Indication Diagnosis SNOMED-CT Code Diagnosis ICD10 Code Diagnosis Note [id number] Socorro Patel MD [facility] [address] [place] [address] [address] [place] [address] 10/10/2020 00:00:00 10/23/2020 22:28:19 [id number] Socorro Patel MD [facility] Primary Care [address] [place] [place] [address] 01/10/2021 00:00:00 01/10/2021 17:51:11 [id number] [facility] _ATHENA_M IGRATION_ DEFAULT_1 _1 , 01/30/2021 00:00:00 01/30/2021 16:42:30 [id number] Socorro Patel MD [facility] Primary Care [facility] [address] [place] [address] [address] [facility] [place] [address] 04/16/2021 00:00:00 04/23/2021 11:04:33 [id number] Socorro Patel MD [facility] [address] [place] [address] [address] [place] [address] 05/02/2021 00:00:00 05/02/2021 16:35:59 [id number] Socorro Patel MD [facility] Primary Care [place] [address] [place] [address] [address] [place] [address] 05/24/2021 00:00:00 05/28/2021 10:15:03 [id number] Socorro Patel MD [facility] Primary Care [place] [address] [place] [address] [address] [place] [address] 11/19/2021 00:00:00 11/19/2021 11:04:22 [id number] Socorro Patel MD [facility] Primary Care [place] [address] [place] [address] [address] [place] [address] 05/08/2022 00:00:00 05/30/2022 11:39:49 [id number] Socorro Patel MD [facility] Primary Care [place] [address] [place] [address] [address] [place] [address] 05/30/2022 00:00:00 05/30/2022 19:52:14 [id number] GUALBERTO Jaffe [facility] Primary [facility] [place] [address] [place] [address] [address] [place] [address] 09/11/2022 15:43:26 09/11/2022 16:25:46 Left lower quadrant pain [id number] R10.32 New problemSus pect pain is d/t chronic constipati on, exacerbate d by opioid pain medication s.Advised to continue with Linzess as directed, samples given.Will send for [facility] Medication monitoring 39 [id number] Z51.81 Therapeuti c opioid induced constipation [id number] 33091 K59.00 ChronicPat ient presents with constipati on. Recommend increasing oral fluids with non-caffei nated, non-alcoho lic beverages. Increase daily dietary fiber. May drink prune juice or pear juice to initiate bowel regularity and then decrease as needed to maintain a once daily or every other day bowel habit. Tylenol or Motrin may be used as needed for cramping. High fiber diet with whole grains, fruits and veggies. Fiber supplement with Metamucil or Citracel. Increase water, fluid intake-Rec ommend at least 6-8 8oz glasses day. Avoid straining. May take miralax BID. Follow up as needed, or sooner if new symptoms develop.Co ntinue with Linzess prn as directed, samples given. [id number] Socorro Patel MD [facility] Primary Care [address] [place] [address] 09/18/2022 16:53:51 09/18/2022 17:18:57 Ventriculoperitoneal shunt in situ [id number] Z97.8 StableNo interventi on indicated at this time. 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 Ok to take tizanidine . If ineffectiv e, may consider change to dicyclomin e. Therapeuti c opioid induced constipation [id number] 24962 K59.00 ChronicPat ient presents with constipati on. Recommend increasing oral fluids with non-caffei nated, non-alcoho lic beverages. Increase daily dietary fiber. May drink prune juice or pear juice to initiate bowel regularity and then decrease as needed to maintain a once daily or every other day bowel habit. Tylenol or Motrin may be used as needed for cramping. High fiber diet with whole grains, fruits and veggies. Fiber supplement with Metamucil or Citracel. Increase water, fluid intake-Rec ommend at least 6-8 8oz glasses day. Avoid straining. May take miralax BID. Follow up as needed, or sooner if new symptoms develop.Co ntinue with Linzess prn as directed, samples given last visit. [id number] Socorro Patel MD [facility] Primary Care [address] [place] [address] 11/06/2022 16:56:40 11/06/2022 17:38:31 Medication monitoring [id number] Z51.81 Nausea 083256010 R11.0 Acne 53694137 L70.9 [id number] Socorro Patel MD [facility] Primary Care [facility] [address] [facility] [address] [place] [address] 11/13/2022 11:26:32 11/13/2022 11:38:21 [id number] Socorro Patel MD [facility] Primary Care [facility] [address] [facility] [address] [place] [address] 12/12/2022 12:27:45 12/12/2022 12:55:36 Acne 68422115 L70.9 acne improved Degenerati on of lumbar intervertebral disc 97848704 M51.36 pharmacy out of 672 [id number] Socorro Patel MD [facility] Primary Care [facility] [address] [place] [address] [address] [place] [address] 04/29/2023 12:12:07 04/29/2023 13:01:54 Administration of influenza vaccine [id number] Z23 Degenerati on of lumbar intervertebral disc 99253159 M51.36 stableno refill neededPt understand s this medication has risk for abuse/depe ndence and agrees to take it only as prescribed and to guard from loss/theft [place] prescripti on monitoring website reviewed [id number] Socorro Patel MD [facility] Primary Care [facility] [address] [place] [address] [address] [place] [address] 09/15/2023 08:54:21 09/15/2023 09:21:30 Goiter 9890925 E04.9 Degenerati on of lumbar intervertebral disc 23677711 M51.36 stablerefi ll givenPt understand s this medication has risk for abuse/depe ndence and agrees to take it only as prescribed and to guard from loss/theft [place] prescript[place] website reviewed Long-term current use of drug therapy [id number] Z79.899 Elevated blood-pressure reading without diagnosis of hypertension 945076122 R03.0 she will resume her metoprolol f/u in 3 months [id number] GARY Henry [facility] Primary [place] [address] [facility] [address] [place] [address] 11/10/2023 14:25:55 11/10/2023 14:50:38 [id number] GARY Henry [facility] Primary Care [address] [place] [address] 12/16/2023 14:01:04 12/16/2023 14:50:12 Degeneration of lumbar intervertebral disc 77574146 M51.36 no longer takes the pain medication s stablerefi ll givenPt understand s this medication has risk for abuse/depe ndence and agrees to take it only as prescribed and to guard from loss/theft [place] prescript[place] monitoring website reviewed Elevated blood-pressure reading without diagnosis of hypertension [id number] R03.0 she has not been taking her metoprolol continues doxazosinf /u in 3 months Constipation 46662869 K5 9.00 Hiatal hernia 16236014 K 44.9 [id number] GARY Alberto [facility] Primary Care [address] [address] 10/05/2024 14:15:25 10/05/2024 14:50:24 General examination of patient [id number] Z00.00 Z13.1 Z13.6 Discussed medication compliance and routine follow up.Discuss ed healthy diet and routine exercise.Alexys castrowed vaccine records and made recommenda tions as needed.Enc ouraged annual eye and dental exams, as well as twice yearly dental cleanings. Will check screening labs as listed below. Acne 55052078 L70.9 Continues to use Tretinoin cream. Anxiety 29802195 F41.9 Sees psych every month. Constipation 63914557 K5 9.00 Linzess twice weekly.Cristobal ples provided. Goiter 4834404 E04.9 Will check labs as listed below. Supraventr icular tachycardia 7914142 I47.10 Doing well on current medication , will refill as needed. Vitamin D deficiency [id number] 97065 E55.9 Will check labs as listed below. [id number] GARY Alberto [facility] Primary Care [address] [place] [address] 10/07/2024 15:00:53 10/07/2024 15:39:09 Health Concerns Section Related Observation LastModified by Organization Detai ls LastModified Time None Recorded Concern Status LastModified by Organization Details LastModified Time None Recorded Advance Directives Directive None Recorded Payers Encounter Date Sequence Insurance Name Policy Number Policy Canela Covered Member ID Canela Member ID Guarantor Name 09/15/2023 1 [facility] ON OR AFTER 11/30/20 (MEDICAID REPLACEMENT - HMO) Alba Olvera [id number] Alba Olvera 11/10/2023 1 [facility] ON OR AFTER 11/30/20 (MEDICAID REPLACEMENT - HMO) Alba Olvera [id number] Alba Olvera 12/16/2023 1 [facility] ON OR AFTER 11/30/20 (MEDICAID REPLACEMENT - HMO) Alba Olvera [id number] Alba Olvera 10/05/2024 1 [facility] ON OR AFTER 11/30/20 (MEDICAID REPLACEMENT - HMO) Alba Olvera [id number] Alba Olvera 10/07/2024 1 [facility] ON OR AFTER 11/30/20 (MEDICAID REPLACEMENT - HMO) Alba Olvera [id number] Alba Olvera Notes Date Note Type Note Provider Name and Address Organization Details Recorded Time 09/15/2023 text/html 09/18/22: 1. Pt i n office for 1 week f/u on imaging results. Pt states abd pain has been gone while she has been on steroids. 09/11/22: 1. Pt in office for problem visit with c/o LLQ pain for the past few weeks. Pt states she doesn't believe pain is d/t constipation b/c she is having better bowel movements with Linzess and often has loose stools with the medication. Pt states pain occurs when she eats and gets very full. Has discomfort when she needs to have a BM, but sx get better after the BMs. Pt states she takes morphine and oxycodone for pain. update 11/06/22: has been taking her meds as prescribed, no selling/lending/sh aring, no heavy etoh or illegal drug use. She requests doxycycline refill for acne update 12/12/22: no interval change update 04/30/23: no interval change update 09/15/23: has not been taking her metoprolol Socorro Patel MD [address], [place], [address], [employer] 10/19/2023 17:51:51 12/16/2023 text/html pt is here for f/u SIMRAN BobP-C [address] [facility], [place], [address], [employer] 12/16/2023 14:30:30 10/05/2024 text/html Patient is a 34 year old female that presents to the office for annual wellness. Patient reports she is doing well overall and has no concerns at this time. Patient sees Psych monthly. labs- orderedWWE- UTD (sees CARDIOTHORACIC SURGEON)Mammogram- scheduled for FridayColonoscopy- age 44Flu- UTDCovid- UTDTdap- needs/aware RUBY AlbertoC [address], [address], [place], [address], [employer] 10/05/2024 14:53:48 OBGyn Episode No OBEpisode recorded.
--- OUTSIDE RECORDS SUMMARY | 2024-10-11 13:24 | XMS_ITS | Clinical Summary ---
Author Organization [facility] Address [address] [facility] [place] [address] Care Team Providers Care Maintenance Aide Name Role Phone Socorro Patel MD Primary Care Provider [phone] Source Comments [facility],non-owned Affiliates and Associated Physician Practices is amultiple site organization consisting of ambulatory clinics and hospital sitesin [place], [place], [place] and [place]. This disclosure is being madepursuant to the Care Everywhere program and may not contain all information available regarding this patient. Last updated 18.[facility] Allergies Active Allergy Reactions Criticality Noted Date Comments Sumatriptan 12/24/2016 Medications * This document contains information received from the source organization and may not represent a complete record from that organization. * Be aware that medications may not be up to date on this document. Alwaysverify current medications with the patient. ALPRAZolam (XANAX PO) Take 1 mg by mouth 3 times daily as needed Active hydrOXYzine HCl (Atarax) 50 MG tablet Take 1 (one) tablet by mouth 3 times daily as needed 90 tablet 07/04/2023 Active lamoTRIgine (LaMICtal) 100 MG tablet Take 2 (two) tablets by mouth 2 times daily 120 tablet 07/04/2023 Active escitalopram (Lexapro) 20 MG tablet Take 1 (one) tablet by mouth once daily 30 tablet 07/05/2023 Active ARIPiprazole (Abilify) 2 MG tablet Take 1 (one) tablet by mouth at bedtime 30 tablet 07/04/2023 Active nicotine (Nicoderm CQ) 14 MG/24HR patchIndications :Depression, unspecified depression type Apply 1 (one) patch to skin once daily 7 patch 07/05/2023 Active doxazosin (Cardura) 1 MG tablet Take 1 (one) tablet by mouth at bedtime 30 tablet 07/04/2023 Active Active Problems Problem Noted Date Diagnosed Date Depression, unspecified depression type 07/02/19 Intentional overdose, initial encounter 07/02/19 Suicidal ideation 06/26/2021 SEED PRODUCTION FIELD SUPERVISOR (ventriculoperitoneal) shunt status 8 Overview (11/17/2018): 10/21/17 Strata valve @ 0.5 jw 11/17/18 Strata valve @ 0.5 JW Family History Medical History Relation Name Comments Hypertension Brother Hypertension Father Seizures Father Hypertension Mother Relation Name Status Comments Brother Alive Father Alive Mother Alive Social History Tobacco Use Types Packs/Day Years Used Date Smoking Tobacco: Former Smokeless Tobacco: Never Tobacco Cessation:Counseling Given: No Comments:vape Alcohol Use Standard Drinks/Week Comments Yes 0 (1 standard drink = 0.6 oz pur e alcohol) occaisonal AUDIT-C Answer Date Recorded Q1: How often do you have a drink containing alc ohol? 2-3 times a week 07/03/2023 Q2: How many drinks containi ng alcohol do you have on a typical day when you are drinking? 5 or 6 07/03/2023 Q3: How often do you have si x or more drinks on one occasion? Never 07/03/2023 Overall Financial Resource Strain (CARDIA) Answe r Date Recorded How hard is it for you to pa y for the very basics like food, housing, medical care, and heating? Not hard at all 07/03/2023 [facility] [place] of Occupat ional Health - Occupational Stress Questionnaire Answer Date Recorded Do you feel stress - tense, restless, nervous, or anxious, or unable to sleep at night because your mind is troubled all the time - these days? Very much 07/03/2023 Hunger Vital Sign Answer Date Recorded Within the past 12 months, y ou worried that your food would run out before you got the money to buy more. Never true 07/03/19 24 Within the past 12 months, t he food you bought just didn't last and you didn't have money to get more. Never true 07/03/2023 PRAPARE - Transportation Answer Date Re corded In the past 12 months, has l ack of transportation kept you from medical appointments or from getting medications? No 06/2023 In the past 12 months, has l ack of transportation kept you from meetings, work, or from getting things needed for daily living? No 07/03/2023 Housing Stability Vital Sign Answer Kirby e Recorded In the last 12 months, was t here a time when you were not able to pay the mortgage or rent on time? No 07/03/2023 In the last 12 months, how many places have you lived? 1 07/03/2023 In the last 12 months, was t here a time when you did not have a steady place to sleep or slept in a [place] facility (including now)? No 07/03/2023 Comments No Sex and Gender Information Value Date Recorded Sex Assigned at Not on file Legal Sex Female 5:10 PM CDT Gender Identity Not on file Sexual Orientation Not on file Last Filed Vital Signs Vital Sign Reading Time Taken Comments Blood Pressure 127/87 07/04/2023 7:43 AM COLLECTIONS MANAGER Pulse 103 07/04/2023 7:43 AM COLLECTIONS MANAGER Temperature 36.1 C (96.9 F) 07/04/2023 7:43 AM COLLECTIONS MANAGER Respiratory Rate 18 07/04/2023 7:43 AM COLLECTIONS MANAGER Oxygen Saturation 100% 07/04/2023 7:43 AM COLLECTIONS MANAGER Inhaled Oxygen Concentration - - Weight 70.6 kg (155 lb 9.6 oz) 07/02/19 11:35 PM COLLECTIONS MANAGER Height 170.2 cm (5' 7 ) 07/02/2023 11:3 5 PM COLLECTIONS MANAGER PT Stated Body Mass Index 24.37 07/02/2023 11:35 PM COLLECTIONS MANAGER Plan of Treatment Health Maintenance Due Date Last Done Comments PAP SMEAR 1989 HIV SCREENING 2004 HEPATITIS C SCREENING 03/29/2007 DTAP/TDAP/TD VACCINES (1 - Tdap) 2008 HEPATITIS B VACCINE (1 of 3 - 19+ 3-dose series) 2008 COVID-19 VACCINE (1 - 2023- season) 2024 DEPRESSION SCREENING 06/02/2024 INFLUENZA VACCINE (Season Ended) 2025 04/29/2023, 05/24/2021, 03/27/2020, Additional history exists ZOSTER VACCINE (1 of 2) 2039 HIB VACCINE Aged Out No longer eligi ble based on patient's age to complete this topic HPV VACCINE Aged Out No longer eligi ble based on patient's age to complete this topic MENINGOCOCCAL (Group B) VACCINE SHARED DECISION-MAKING Aged Out No longer eligible based on patient's age to complete this topic MENINGOCOCCAL GROUPS A/C/Y/W VACCINE Aged Out No longer eligible based on patient's age to complete this topic PNEUMOCOCCAL VACCINE Aged Out No long er eligible based on patient's age to complete this topic Insurance [facility] Member Subscriber Plan / Payer (Ef fective for All Dates) Name:Alba Olvera Relation to Subscriber:Self Name:MayEsha lry Payer ID:[id number] (NAIC) Group ID:Not on file Type:Medicaid Managed Care Address: [place] [phone] SELF PAY NO INSURANCE Member Subscriber Plan / Payer (Ef fective for All Dates) Name:Alba Olvera Member ID:Not on file Relation to Subscriber:Not on file Name:ALBA OLVERA Subscriber ID:Not on file (Home) Address: [address] [place] [address] Payer ID:Not on file Group ID:Not on file Type:Self Pay Address: [place], [place] [facility] Advance Directives * Full Code (Latest Code Status on File) Date Activated Date Inactivated Comments 07/02/2023 7:43 PM 07/04/2023 1:31 PM * Full Code Date Activated Date Inactivated Comments 06/26/2021 2:38 AM 06/28/2021 3:22 PM Care Teams Maintenance Aide Relationship Specialty Start Date End Date Socorro Patel MD [address] [place] [id number] PCP - General Family Medicine 12/24/16
--- OUTSIDE RECORDS SUMMARY | 2024-10-11 13:24 | XMS_ITS | Patient Health Record ---
Author Organization [facility] Address [address] [place] [address] Care Team Providers Care Licensed Psychologist Name Role Phone Bean Haro Primary Care Provider Sherman Cabrera Unavailable [phone] David Manzo Unavailable [phone] Trent Haines Unavailable [phone] Carley Wiley Unavailable [phone] Nasra Jena Unavailable [phone] Jessi Fournier Unavailable [phone] Guerline Cooper Unavailable [phone] Allergies Allergen (clinical drug ingredient) Drug/Non Drug Allergy documented on EMR Reaction Allergy Type Onset Date Status No Known Drug Allergy Unknown Drug Allergy Active Results Component Value Reference Range Notes 12 Panel Urine Drug Screen Reviewed date:02/12/2024 10:46:44 AM Interpretation: Performing Lab: Notes/Report: THC neg FELICITA neg MOP (OPI) neg AMP neg MET neg BAR neg BZO POS MDMA neg MTD neg OXY neg PCP neg BUP POS 12 Panel Urine Drug Screen Reviewed date:12/09/2023 08:34:19 AM Interpretation: Performing Lab: Notes/Report: THC neg FELICITA neg MOP (OPI) neg AMP neg MET neg BAR neg BZO POS MDMA neg MTD neg OXY neg PCP neg BUP POS 12 Panel Urine Drug Screen Reviewed date:03/12/2024 09:13:18 AM Interpretation: Performing Lab: Notes/Report: THC neg FELICITA neg MOP (OPI) neg AMP neg MET neg BAR neg BZO POS MDMA neg MTD neg OXY neg PCP neg BUP POS 12 Panel Urine Drug Screen Reviewed date:04/13/2024 10:04:01 AM Interpretation: Performing Lab: Notes/Report: THC neg FELICITA neg MOP (OPI) neg AMP neg MET neg BAR neg BZO POS MDMA neg MTD neg OXY neg PCP neg BUP POS Buprenorphine and Metabolite (Urine test) Reviewed date:06/22/2024 07:46:45 PM Interpretation: Performing Lab:[facility], [address], Phone - [phone], Director - PhDAbudu Notes/Report: Clinical Information:[id number] LM Buprenorphine Positive Confirmation p erformed by Mass Spectrometry Buprenorphine Positive Buprenorphine Conf, MS, UR 138 Cutoff=10 ng/m L Norbuprenorphine Positive Norbuprenorphine Conf, MS, UR 215 Cutoff=10 n g/mL 12 Panel Urine Drug Screen Reviewed date:07/19/2024 02:48:58 PM Interpretation: Performing Lab: Notes/Report: THC neg FELICITA neg MOP (OPI) neg AMP neg MET neg BAR neg BZO POS MDMA neg MTD neg OXY neg PCP neg BUP POS 12 Panel Urine Drug Screen Reviewed date:12/15/2023 10:03:06 AM Interpretation: Performing Lab: Notes/Report: THC neg FELICITA neg MOP (OPI) neg AMP neg MET neg BAR neg BZO POS MDMA neg MTD neg OXY neg PCP neg BUP POS 12 Panel Urine Drug Screen Reviewed date:01/13/2024 01:25:13 PM Interpretation: Performing Lab: Notes/Report: THC neg FELICITA neg MOP (OPI) neg AMP neg MET neg BAR neg BZO POS MDMA neg MTD neg OXY neg PCP neg BUP POS Buprenorphine and Metabolite (Urine test) Reviewed date:01/19/2024 11:57:51 AM Interpretation: Performing Lab:[facility], [address], [place], Phone - [phone], Director - PhDAbudu Notes/Report: Clinical Information:[id number] Buprenorphine Positive Confirmation p erformed by Mass Spectrometry Buprenorphine Positive Buprenorphine Conf, MS, UR 44 Cutoff=10 ng/m L Norbuprenorphine Positive Norbuprenorphine Conf, MS, UR 175 Cutoff=10 n g/mL 12 Panel Urine Drug Screen Reviewed date:08/19/2024 09:10:35 AM Interpretation: Performing Lab: Notes/Report: THC neg FELICITA neg MOP (OPI) neg AMP neg MET neg BAR neg BZO POS MDMA neg MTD neg OXY neg PCP neg BUP POS 12 Panel Urine Drug Screen Reviewed date:06/15/2024 02:49:08 PM Interpretation: Performing Lab: Notes/Report: THC neg FELICITA neg MOP (OPI) neg AMP neg MET neg BAR neg BZO POS MDMA neg MTD neg OXY neg PCP neg BUP POS 12 Panel Urine Drug Screen Reviewed date:05/12/2024 02:31:33 PM Interpretation: Performing Lab: Notes/Report: THC neg FELICITA neg MOP (OPI) neg AMP neg MET neg BAR neg BZO POS MDMA neg MTD neg OXY ng PCP neg BUP POS Written Authorization Reviewed date:01/19/2024 11:57:12 AM Interpretation: Performing Lab:[facility], [address] [facility], [facility], Phone - [phone], Director - PhDAbudu Notes/Report: Clinical Information:[id number] Written Authorization Written Authorization Received. Authorization received from PER ORIGINAL ORDER 01-14-2024 Logged by Humberto Hendricks [facility] 14 Comprehensive Metabol ic Panel* Reviewed date:04/08/2024 12:43:46 PM Interpretation: Performing Lab:[facility] [place], [address] [facility], Phone - [phone], Director - PhDRicralph Notes/Report: Glucose 82 70-99 mg/dL BUN 9 6-20 mg/dL Creatinine 0.92 0.57-1.00 mg/dL eGFR 83 >59 mL/min/1.73 BUN/Creatinine Ratio 10 9-23 Sodium 141 134-144 mmol/L Potassium 4.2 3.5-5.2 mmol/L Chloride 102 96-106 mmol/L Carbon Dioxide, Total 29 20-29 mmol/L Calcium 9.1 8.7-10.2 mg/dL Protein, Total 6.3 6.0-8.5 g/dL Albumin 4.6 3.9-4.9 g/dL Globulin, Total 1.7 1.5-4.5 g/dL Bilirubin, Total 0.3 0.0-1.2 mg/dL Alkaline Phosphatase 30 44-121 IU/L AST (SGOT) 15 0-40 IU/L ALT (SGPT) 9 0-32 IU/L Lipid Panel* Reviewed date:04/08/2024 12:43:12 PM Interpretation: Performing Lab:[facility] [place], [address], [place], Phone - [phone], Director - [facility] Notes/Report: Cholesterol, Total 139 100-199 mg/dL Triglycerides 81 0-149 mg/dL HDL Cholesterol 46 >39 mg/dL VLDL Cholesterol Brayden 16 5-40 mg/dL LDL Chol Calc (NIH) 77 0-99 mg/dL TSH+Free T4* Reviewed date:04/08/2024 12:42:55 PM Interpretation: Performing Lab:[address], Phone - [phone], Director - [facility] Notes/Report: TSH 0.841 0.450-4.500 uIU/mL T4,Free(Direct) 1.04 0.82-1.77 ng/dL Vitamin D, 25-Hydroxy* Reviewed date:04/08/2024 12:42:40 PM Interpretation: Performing Lab:[address], Phone - [phone], Director - [facility] Notes/Report: Vitamin D, 25-Hydroxy 71.8 30.0-100.0 ng/mL Vitamin D deficiency has been defined by the [place] of Medicine and an Endocrine Society practice guideline as a level of serum 25-OH vitamin D less than 20 ng/mL (1,2). The Endocrine Society went on to further define vitamin D insufficiency as a level between 21 and 29 ng/mL (2). 1. IOM ([place] of Medicine). 2010. Dietary reference intakes for calcium and D. [place]: The National Academies Press. 2. Nikia MF, Lauri NC, Glen LOPEZ, et al. Evaluation, treatment, and prevention of vitamin D deficiency: an Endocrine Society clinical practice guideline. JCEM. 2010; 96(7):1911-30. CBC With Differential/Platel et* Reviewed date:04/08/2024 12:44:36 PM Interpretation: Performing Lab:[address], Phone - [phone], Director - [facility] Notes/Report: WBC 4.0 3.4-10.8 x10E3/uL RBC 3.96 3.77-5.28 x10E6/uL Hemoglobin 12.1 11.1-15.9 g/dL Hematocrit 36.2 34.0-46.6 % MCV 91 79-97 fL MCH 30.6 26.6-33.0 pg MCHC 33.4 31.5-35.7 g/dL RDW 12.1 11.7-15.4 % Platelets 163 150-450 x10E3/uL Neutrophils 51 Not Estab. % Lymphs 35 Not Estab. % Monocytes 11 Not Estab. % Eos 2 Not Estab. % Basos 1 Not Estab. % Neutrophils (Absolute) 2.1 1.4-7.0 x10E3/uL Lymphs (Absolute) 1.4 0.7-3.1 x10E3/uL Monocytes(Absolute) 0.5 0.1-0.9 x10E3/uL Eos (Absolute) 0.1 0.0-0.4 x10E3/uL Baso (Absolute) 0.0 0.0-0.2 x10E3/uL Immature Granulocytes 0 Not Estab. % Immature Grans (Abs) 0.0 0.0-0.1 x10E3/uL Folate (Folic Acid), Serum* Reviewed date:04/08/2024 12:43:24 PM Interpretation: Performing Lab:[facility] [address], Phone - [phone], [facility] - [facility] Notes/Report: Folate (Folic Acid), Serum 5.6 >3.0 ng/mL A serum folate concentration of less than 3.1 ng/mL is considered to represent clinical deficiency. Vitamin B12* Reviewed date:04/08/2024 12:42:49 PM Interpretation: Performing Lab:[facility] [place], [address] [place] [address], Phone - [phone], [facility] - [facility] Notes/Report: Vitamin B12 6369 132-0515 pg/mL Hemoglobin A1c* Reviewed date:04/08/2024 12:43:18 PM Interpretation: Performing Lab:[facility] [place], [address] [place] [address], Phone - [phone], [facility] Notes/Report: Hemoglobin A1c 5.1 4.8-5.6 % . Prediabetes: 5.7 - 6.4 Diabetes: >6.4 Glycemic control for adults with diabetes: <7.0 Reason For Referral Reason Would you please pro vide patient with information on local DBT resources and/or refer patient to DBT specialist? I suspect patient has borderline personality disorder, and patient reports previous improvement with this therapy modality. Thanks! Diagnosis 1 Bipolar II disorder (F31.81) Diagnosis 2 Trauma and stressor- related disorder (F43.9) Diagnosis 3 Cluster B personalit y disorder (F60.89) Referral Organization [facility] Referring Provider First Name Sherman Referring Provider Last Name Cabrera Referring Provider Speciality Psychiatry Referred Provider Specialty Behavioral [facility] Clinical Notes Kimber Roldan 02/25/2024 02:30:06 PM >spoke with client and provided her all of the information to call and initiate therapy with a provider who specializes in DBT. client states she is aware of the process and will be calling to set that up. Referral Priority Routine Medications Medication SIG (Take, Route, Frequency, Duration) Notes Start Date End Date Status Buprenorphine HCl-Naloxone HCl 8-2 MG 1 film under the tongue and allow to dissolve Sublingual three times a day 08/19/2024 Active Lexapro 20 MG 1 tablet Orally Once a day for 30 days Active lamoTRIgine 200 MG 1 tablet Orally Twic e a day for 30 days Active Rizatriptan Benzoate 10 MG Oral for 12 Days Active Promethazine HCl 25 MG Oral for 10 Days Active tiZANidine HCl 4 MG 1 tablet at bedtime as needed Orally Once a day Active Propranolol HCl ER 80 MG 1 capsule Orall y Once a day for 30 days Active Eszopiclone 2 MG 1 tablet Orally once daily at bedtime as needed for sleep 08/11/2024 Active busPIRone HCl 30 MG 1.5 tablets (45mg) t wice daily Orally Active ALPRAZolam 1 MG 0.5 tablet in the AM, 0.5-1 tablet in the afternoon, and 0.25-5 tablet in the evening Oral for 30 days As needed for anxiety 08/20/2024 Active Caplyta 42 MG 1 capsule Orally Onc e a day for 30 days Active Doxazosin Mesylate 4 MG 1 tablet Oral on ce daily at bedtime for PTSD/nightmares for 30 days Active Social History Tobacco Use: Social History Observation Description Date Details (start date - stop date) Never Smoker NA - NA Sex Assigned At : Social History Observation Description Sex Assigned At Female PRAPARE Question Answer Notes Date Completed/Updated: 01/13/2024 What is your current housing situation? I have housing Are you worried about losing your housing? No What is the highest level of school that you have finished? High school diploma or GED What is your current work situation? Oth erwise unemployed but not seeking work (ex. 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 Check all that apply I do not have problems meeting my needs Has lack of transportation k ept you from medical appointments, meetings, work or from getting things needed for daily living? No How often do you see or talk to people that you care about and feel close to? (For example: talking to friends on the phone, visiting friends or family, going to gnosticist or club meetings) More than 5 times a week How stressed are you? Stress is when someone feels tense, nervous, anxious, or can\t sleep at night because their mind is troubled Somewhat In the past year have you sp ent more than 2 nights in a row in a halfway, usp, prison center, or juvenile correctional facility? No Are you a refugee? No What country are you from? [place] Do you feel physically and emotionally safe where you currently live? Yes In the past year, have you b een afraid of your partner or ex-partner? No PRAPARE Score: 5 Tobacco Control (Standard) Question Answer Notes Tobacco use: Nonsmoker Section Notes: PRESCRIPTION # FILLED WRITTE N DRUG LABEL QTY DAYS STRENGTH MME [facility] REFILL NO. REFILLS STATE PATIENT [id number] 10/03/2023 08/04/2023 ALPRAZolam 90.0 30 1 MG NA Socorro Patel L, (Md) - [id number] [place] [id number] 09/22/2023 09/15/2023 Morphine Sulfate 30.0 30 15 MG 15 Socorro Patel L, (Md) - [id number] [place] 0 [place] [id number] 09/17/2023 09/15/2023 ACETAMINOPHEN 325 MG / oxyCODONE HYDROCHLORIDE 10 MG ORAL TABLET 90.0 30 10.0 MG/325.0 MG 45 Socorro Patel L, (Md) - [id number] [place], [place] NA 0 [place] [id number] 09/04/2023 08/04/2023 ALPRAZolam 90.0 30 1 MG PRESCRIPTION # FILLED WRITTEN DRUG LABEL QTY DAYS STRENGTH MME [facility] REFILL NO. REFILLS STATE 12/01/2023 11/20/2023 ALPRAZolam 90.0 30 1 MG NA Mehnazsaray Luke - [id number] [employer] [place], [place] NA 0 [place] 1 [id number] 11/17/2023 11/17/2023 Triazolam 15.0 30 0.125 MG NA Jessi Fournier [facility] - [id number] [place], [place] NA 0 [place] 1 [id number] 11/12/2023 11/12/2023 ALPRAZolam 90.0 30 0.5 M PRESCRIPTION # FILLED WRITTE N DRUG LABEL QTY DAYS STRENGTH MME [facility] REFILL NO. REFILLS STATE PATIENT [id number] 08/22/2023 08/22/2023 ACETAMINOPHEN 325 MG / oxyCODONE HYDROCHLORIDE 10 MG ORAL TABLET 90.0 30 10.0 MG/325.0 MG 45 Socorro Patel L, (Md) - [id number] [place], [place] NA 0 [place] [id number] 08/22/2023 08/22/2023 Morphine Sulfate 30.0 30 15 MG 15 Socorro Patel L, (Md) - [id number] [place], [place] NA 0 [place] [id number] 08/13/2023 08/13/2023 Triazolam 15.0 30 0.125 MG NA Abdiel Christopher [facility]-bc - [id number] [employer] [place], [place] NA 0 [place] [id number] 08/05/2023 08/04/2023 ALPRAZolam 90.0 30 1 MG NA Socorro Patel L, (Md) - [id number] [employer] [place], [place] NA 2 [place] [id number] 07/16/2023 07/16/2023 Triazolam 15.0 15 0.125 PRESCRIPTION # FILLED WRITTE N DRUG LABEL QTY DAYS STRENGTH MME [facility] REFILL NO. REFILLS STATE PATIENT [id number] 10/03/2023 08/04/2023 ALPRAZolam 90.0 30 1 MG NA Socorro Patel L, (Md) - [id number] [employer] [place], [place] NA 2 [place] [id number] 09/22/2023 09/15/2023 Morphine Sulfate 30.0 30 15 MG 15 Socorro Patel L, (Md) - [id number] [place], [place] NA 0 [place] [id number] 09/17/2023 09/15/2023 ACETAMINOPHEN 325 MG / oxyCODONE HYDROCHLORIDE 10 MG ORAL TABLET 90.0 30 10.0 MG/325.0 MG 45 Socorro Patel L, (Md) - [id number] [employer] [place], [place] NA 0 [place] [id number] 09/04/2023 08/04/2023 ALPRAZolam 90.0 30 1 MG PRESCRIPTION # FILLED WRITTEN DRUG LABEL QTY DAYS STRENGTH MME [facility] REFILL NO. REFILLS STATE 12/01/2023 11/20/2023 ALPRAZolam 90.0 30 1 MG NA Sestephanie Beck [id number] [place], [place] NA 0 [place] 1 [id number] 11/17/2023 11/17/2023 Triazolam 15.0 30 0.125 MG NA Jessi Fournier [facility] - [id number] [employer] [place], [place] NA 0 [place] 1 [id number] 11/12/2023 11/12/2023 ALPRAZolam 90.0 30 0.5 M PRESCRIPTION # FILLED WRITTEN DRUG LABEL QTY DAYS STRENGTH MME [facility] REFILL NO. REFILLS STATE 12/01/2023 11/20/2023 ALPRAZolam 90.0 30 1 MG NA Seiffersaray Beck [id number] [place], [place] NA 0 [place] 1 [id number] 11/17/2023 11/17/2023 Triazolam 15.0 30 0.125 MG NA Jessi Fournier [facility] - [id number] [place] 1 [id number] 11/12/2023 11/12/2023 ALPRAZolam 90.0 30 0.5 M PRESCRIPTION # FILLED WRMYNORE N DRUG LABEL QTY DAYS STRENGTH MME [facility] REFILL NO. REFILLS STATE PATIENT [id number] 10/03/2023 08/04/2023 ALPRAZolam 90.0 30 1 MG NA Socorro Patel L, (Md) - [id number] [place], [place] NA 2 [place] [id number] 09/22/2023 09/15/2023 Morphine Sulfate 30.0 30 15 MG 15 Socorro Patel L, (Md) - [id number] [place], [place] NA 0 [place] [id number] 09/17/2023 09/15/2023 ACETAMINOPHEN 325 MG / oxyCODONE HYDROCHLORIDE 10 MG ORAL TABLET 90.0 30 10.0 MG/325.0 MG 45 Socorro Patel L, (Md) - [id number] [place], [place] NA 0 [place] [id number] 09/04/2023 08/04/2023 ALPRAZolam 90.0 30 1 MG Problems Problem Type SNOMED Code ICD Code Onset Dates Problem Status W/U Status Risk Notes Problem Tobacco user (476024394) Nicotine dependence, unspecified, uncomplicated (F17.200) Active confirmed Problem Bipolar II disorder (55121379) Bipolar II disorder (F31.81) Active confirmed Problem Alcohol use disorder (1253473624) Alcohol use disorder (F10.99) Active confirmed Problem Adjustment disorder (64119007) Trauma and stressor-related disorder (F43.9) Active confirmed Problem Tobacco use (317083397) Tobacco use disorder (F17.200) Active confirmed Problem Opioid use disorder (4299193697) Opioid use disorder (F11.99) Active confirmed Problem Cluster B personality disorder (9652693) Cluster B personality disorder (F60.89) Active confirmed Vital Signs Heart Rate 91 /min 08/19/2024 Temperature 98.6 degrees Fahrenheit 04/13/2024 Respiratory Rate 16 /min 08/19/2024 Oximetry 98 % 08/19/2024 Blood pressure diastolic 70 mm Hg 08/19/2024 Height 67 in 08/19/2024 Blood pressure systolic 122 mm Hg 08/19/2024 Weight 129 lb 6 oz lbs 08/19/2024 BMI 20.26 kg/m2 08/19/2024 Encounters Encounter Location Date Provider Diagnosis [address] [address] 10/13/2023 Jessi Irlanda Bipolar II disorder F31.81 ; Trauma and stressor-related disorder F43.9 and Alcohol use disorder F10.[address] [address] 12/01/2023 Jessi Irlanda Bipolar II disorder F31.81 ; Trauma and stressor-related disorder F43.9 ; Alcohol use disorder F10.99 and Substance use disorder F19.[address] [address] 12/09/2023 Guerline Cooper Opioid use disorder F11.99 ; Nicotine dependence, unspecified, uncomplicated F17.200 ; Overweight (BMI 25.0-29.9) E66.3 and Nutritional counseling Z71.[address] [address] 12/09/2023 Carley Wiley [address] [address] 12/15/2023 Trent Haines Opioid use disorder F11.[address] [address] 12/15/2023 Carley Jacksonbrian [address] [address] 12/23/2023 Jessi Fournier Bipolar II disorder F31.81 ; Trauma and stressor-related disorder F43.9 ; Alcohol use disorder F10.99 and Substance use disorder F19.[address] [address] 01/13/2024 Guerline Cooper Opioid use disorder F11.99 ; Nicotine dependence, unspecified, uncomplicated F17.200 ; Overweight (BMI 25.0-29.9) E66.3 and Nutritional counseling Z71.[address] [address] 01/13/2024 Carley Wiley [address] [address] 01/19/2024 Jessi Irlanda Bipolar II disorder F31.81 ; Trauma and stressor-related disorder F43.9 ; Alcohol use disorder F10.99 and Substance use disorder F19.[address] [address] 02/12/2024 Guerline Cooper Opioid use disorder F11.99 and Nicotine dependence, unspecified, uncomplicated F17.[address] [address] 02/18/2024 Sherman Cabrera Bipolar II disorder F31.81 ; Trauma and stressor-related disorder F43.9 ; Alcohol use disorder F10.99 ; Opioid use disorder F11.99 and Nicotine dependence, unspecified, uncomplicated F17.[address] [address] 03/12/2024 David Manzo Opioid use disorder F11.99 and Tobacco use disorder F17.[address] [address] 03/31/2024 Sherman Cabrera Bipolar II disorder F31.81 ; Cluster B personality disorder F60.89 ; Trauma and stressor-related disorder F43.9 ; Alcohol use disorder F10.99 ; Opioid use disorder F11.99 and Nicotine dependence, unspecified, uncomplicated F17.[address] [address] 04/07/2024 Sherman Cabrera Bipolar II disorder F31.81 ; Trauma and stressor-related disorder F43.9 ; Alcohol use disorder F10.99 ; Opioid use disorder F11.99 and Nicotine dependence, unspecified, uncomplicated F17.[address] [address] 04/13/2024 Nasra Heathkalpana Opioid use disorder F11.99 and Nicotine dependence, unspecified, uncomplicated F17.[address] [address] 04/27/2024 Sherman Cabrera Bipolar II disorder F31.81 ; Cluster B personality disorder F60.89 ; Trauma and stressor-related disorder F43.9 ; Alcohol use disorder F10.99 ; Opioid use disorder F11.99 and Nicotine dependence, unspecified, uncomplicated F17.[address] [address] 05/12/2024 Guerline Cooper Opioid use disorder F11.99 and Nicotine dependence, unspecified, uncomplicated F17.[address] [address] 05/18/2024 Sherman Cabrera Bipolar II disorder F31.81 ; Cluster B personality disorder F60.89 ; Trauma and stressor-related disorder F43.9 ; Alcohol use disorder F10.99 ; Opioid use disorder F11.99 and Nicotine dependence, unspecified, uncomplicated F17.[address] [address] 06/15/2024 Bean Haro Opioid use disorder F11.99 and Nicotine dependence, unspecified, uncomplicated F17.[address] [address] 06/17/2024 Sherman Cabrera Bipolar II disorder F31.81 ; Cluster B personality disorder F60.89 ; Trauma and stressor-related disorder F43.9 ; Alcohol use disorder F10.99 ; Opioid use disorder F11.99 and Nicotine dependence, unspecified, uncomplicated F17.200 [facility] [address] [address] 07/15/2024 Sherman Cabrera Bipolar II disorder F31.81 ; Cluster B personality disorder F60.89 ; Trauma and stressor-related disorder F43.9 ; Alcohol use disorder F10.99 ; Opioid use disorder F11.99 and Nicotine dependence, unspecified, uncomplicated F17.[address] [address] 07/19/2024 Guerline Cooper Opioid use disorder F11.99 and Nicotine dependence, unspecified, uncomplicated F17.[address] [address] 08/11/2024 Sherman Cabrera Bipolar II disorder F31.81 ; Cluster B personality disorder F60.89 ; Trauma and stressor-related disorder F43.9 ; Alcohol use disorder F10.99 ; Opioid use disorder F11.99 and Nicotine dependence, unspecified, uncomplicated F17.[address] [address] 08/19/2024 Guerline Cooper Opioid use disorder F11.[address] [address] 10/13/2023 Jessi Fournier [address] [address] 10/22/2023 Jessi Fournier [facility] [address] [place] [address] 11/07/2023 Jessi Fournier [facility] [address] [place] [address] 11/17/2023 Jessi Fournier Bipolar II disorder F31.81 and Trauma and stressor-related disorder F43.[address] [address] 12/11/2023 Jessi Fournier [address] [address] 12/12/[address] [address] 12/31/2023 Jessilonnie Fournier [address] [place] [address] 01/13/2024 [facility] [address] [place] [address] 01/14/[address] [address] 02/19/2024 Sherman Cabrera [address] [address] 03/16/2024 Sherman Cabrera Bipolar II disorder F31.[address] [address] 03/31/2024 Sherman Cabrera [address] [address] 04/08/2024 Sherman Cabrera Assessments Encounter Date Diagnosis (ICD Code) Assessment Notes Treatment Notes Treatment Clinical Notes Section Notes 10/13/2023 Bipolar II disorder (ICD-10 - F31.81) PHQ-9 was 13 today. Passive SI with no plan. Refusing crisis She has crisis contact information. [facility] ordered today Benzodiazepines are not recommended for long-term use due to potent and dangerous side effects that include increased drowsiness, memory impairment, increased irritability, mood changes, and worsening of PTSD symptoms. Benzodiazepines increase respiratory depression which can aggravate conditions such as sleep apnea and COPD leading to possible . They should also never be combined with alcohol, pain medications (especially opioids), or street drugs because this can lead to overdose and possible . If you are under the influence of benzodiazepines while operating a motor vehicle and are involved in a car accident you can be charged with driving while intoxicated. Benzodiazepine use increases unsteady gait thereby increasing the risk of falls, broken bones, and concussions. Benzodiazepine use is intended for short-term use, up to 3 weeks at most. Long-term use of benzos can lead to dependence, rebound anxiety/agitation, and withdrawal symptoms that include sleep disturbance, irritability, increased tension and anxiety, panic attacks, hand tremor, sweating, difficulty in concentration, dry retching, and nausea, some weight loss, palpitations, headache, muscular pain and stiffness, and a host of perceptual changes. Antipsychotics education - reviewed side effects which may include metabolic syndrome, movement disorders (EPS/extrapyramidal symptoms & TD/Tardive dyskinesia) - potentially permanent movement abnormalities, NMS/neuroleptic malignant syndrome (high fever, very rigid muscles, and rapid heartbeat - potentially fatal), sedation, and cardiac rhythm abnormalities. 10/13/2023 Trauma and stressor-related disorder (ICD-10 - F43.9) Antidepressant education - reviewed side effects which may include increased risk of suicide, anxiety, sleep disturbance, nausea, dry mouth, increased bruising, sexual dysfunction, lisa, wt gain, and serotonin syndrome. Reasons, potential benefits, interactions and side effects of all medications were discussed. The Patient/Guardian asked appropriate questions, appeared to understand the answers, and decided to accept the treatment and continue being followed. Alternatives and expected course without treatment were reviewed. The Patient/Guardian is aware of the need to contact the office or return for an earlier appointment if any problems or concerns arise. May also contact the 24-hour crisis hotline ([facility]), refer to the closest emergency room or call 911 if new symptoms arise of existing symptoms worsen. The Patient/Guardian is aware that this would apply to symptoms like: suicidal ideation, homicidal ideation, high risk behaviors, manic symptoms, psychotic symptoms, physical symptoms, or any other symptoms that may be dangerous to self or others. Greater than 50% of time spent on coordination and counseling where psychopharmacology as well as psychotherapeutic interventions were discussed along with review of treatments in the past. Education provided concerning need for adequate hydration. Patient/Guardian verbalized understanding of education, treatment plan and follow up. May self-administer or be administered own oral medication per [facility]. Provided informed consent with understanding of side effects, risks and benefits as well as alternative treatments as previously discussed and with the above recommended medications ang other aspects of the treatment program. Agrees to return sooner if symptoms worsen or suicidal or homicidal ideations occur. 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 Reasons, potential benefits, interactions and side effects of all medications were discussed. The Patient/Guardian asked appropriate questions, appeared to understand the answers, and decided to accept the treatment and continue being followed. Alternatives and expected course without treatment were reviewed. The Patient/Guardian is aware of the need to contact the office or return for an earlier appointment if any problems or concerns arise. May also contact the 24-hour crisis hotline ([facility]), refer to the closest emergency room or call 911 if new symptoms arise of existing symptoms worsen. The Patient/Guardian is aware that this would apply to symptoms like: suicidal ideation, homicidal ideation, high risk behaviors, manic symptoms, psychotic symptoms, physical symptoms, or any other symptoms that may be dangerous to self or others. Greater than 50% of time spent on coordination and counseling where psychopharmacology as well as psychotherapeutic interventions were discussed along with review of treatments in the past. Education provided concerning need for adequate hydration. Patient/Guardian verbalized understanding of education, treatment plan and follow up. May self-administer or be administered own oral medication per [facility]. Provided informed consent with understanding of side effects, risks and benefits as well as alternative treatments as previously discussed and with the above recommended medications ang other aspects of the treatment program. Agrees to return sooner if symptoms worsen or suicidal or homicidal ideations occur. support and education provided concerning illness and treatment plan, risks and benefits, pt verbalized understanding of the same and agreeable 12/09/2023 Nicotine dependence, unspecified, uncomplicated (ICD-10 - F17.200) 12/09/2023 Opioid use disorder (ICD-10 - F11.99) 12/15/2023 Opioid use disorder (ICD-10 - F11.99) DISCUSSED RISK OF CENTRAL SLEEP APNEA AND WITH MIX OF SUBOXONE AND BENZO'S DISCUSSED BENZO W/D AND NEED FOR BENZO TAPER SHE WILL D/W PSYCHIATRIST 12/23/2023 Bipolar II disorder (ICD-10 - F31.81) PHQ-9 was 6 today, it was 9 at last visit. No SIB or SI. Refusing crisis She has crisis contact information. [facility] on file Continue Caplyta 42mg daily Discussed watermaster rish BZD We also discussed weaning down off BZD once she finished detox from ETOH, oxycodone, and morphine. Pt has been taking BZD since 17 years of age. Antipsychotics education - reviewed side effects which may include metabolic syndrome, movement disorders (EPS/extrapyramidal symptoms & TD/Tardive dyskinesia) - potentially permanent movement abnormalities, NMS/neuroleptic malignant syndrome (high fever, very rigid muscles, and rapid heartbeat - potentially fatal), sedation, and cardiac rhythm abnormalities. Benzodiazepines are not recommended for long-term use due to potent and dangerous side effects that include increased drowsiness, memory impairment, increased irritability, mood changes, and worsening of PTSD symptoms. Benzodiazepines increase respiratory depression which can aggravate conditions such as sleep apnea and COPD leading to possible . They should also never be combined with alcohol, pain medications (especially opioids), or street drugs because this can lead to overdose and possible . If you are under the influence of benzodiazepines while operating a motor vehicle and are involved in a car accident you can be charged with driving while intoxicated. Benzodiazepine use increases unsteady gait thereby increasing the risk of falls, broken bones, and concussions. Benzodiazepine use is intended for short-term use, up to 3 weeks at most. Long-term use of benzos can lead to dependence, rebound anxiety/agitation, and withdrawal symptoms that include sleep disturbance, irritability, increased tension and anxiety, panic attacks, hand tremor, sweating, difficulty in concentration, dry retching, and nausea, some weight loss, palpitations, headache, muscular pain and stiffness, and a host of perceptual changes. Antipsychotics education - reviewed side effects which may include metabolic syndrome, movement disorders (EPS/extrapyramidal symptoms & TD/Tardive dyskinesia) - potentially permanent movement abnormalities, NMS/neuroleptic malignant syndrome (high fever, very rigid muscles, and rapid heartbeat - potentially fatal), sedation, and cardiac rhythm abnormalities. 12/01/2023 Bipolar II disorder (ICD-10 - F31.81) PHQ-9 was 9 today. Passive SI with no plan. Refusing crisis She has crisis contact information. [facility] on file and reviewed today HILARIO Akhtar Start Caplyta Discussed watermaster rish BZD We also discussed weaning down off BZD once she finished detox from ETOH, oxycodone, and morphine. Pt has been taking BZD since 17 years of age. Antipsychotics education - reviewed side effects which may include metabolic syndrome, movement disorders (EPS/extrapyramidal symptoms & TD/Tardive dyskinesia) - potentially permanent movement abnormalities, NMS/neuroleptic malignant syndrome (high fever, very rigid muscles, and rapid heartbeat - potentially fatal), sedation, and cardiac rhythm abnormalities. Benzodiazepines are not recommended for long-term use due to potent and dangerous side effects that include increased drowsiness, memory impairment, increased irritability, mood changes, and worsening of PTSD symptoms. Benzodiazepines increase respiratory depression which can aggravate conditions such as sleep apnea and COPD leading to possible . They should also never be combined with alcohol, pain medications (especially opioids), or street drugs because this can lead to overdose and possible . If you are under the influence of benzodiazepines while operating a motor vehicle and are involved in a car accident you can be charged with driving while intoxicated. Benzodiazepine use increases unsteady gait thereby increasing the risk of falls, broken bones, and concussions. Benzodiazepine use is intended for short-term use, up to 3 weeks at most. Long-term use of benzos can lead to dependence, rebound anxiety/agitation, and withdrawal symptoms that include sleep disturbance, irritability, increased tension and anxiety, panic attacks, hand tremor, sweating, difficulty in concentration, dry retching, and nausea, some weight loss, palpitations, headache, muscular pain and stiffness, and a host of perceptual changes. Antipsychotics education - reviewed side effects which may include metabolic syndrome, movement disorders (EPS/extrapyramidal symptoms & TD/Tardive dyskinesia) - potentially permanent movement abnormalities, NMS/neuroleptic malignant syndrome (high fever, very rigid muscles, and rapid heartbeat - potentially fatal), sedation, and cardiac rhythm abnormalities. 01/13/2024 Nicotine dependence, unspecified, uncomplicated (ICD-10 - F17.200) 01/13/2024 Opioid use disorder (ICD-10 - F11.99) 01/19/2024 Bipolar II disorder (ICD-10 - F31.81) PHQ-9 was 11 today, it was 6 at last visit. No current SIB or SI. Refusing crisis She has crisis contact information. [facility] on file Continue Caplyta 42mg daily Discussed watermaster rish BZD We also discussed weaning down off BZD once she finished detox from ETOH, oxycodone, and morphine. Pt has been taking BZD since 17 years of age. Antipsychotics education - reviewed side effects which may include metabolic syndrome, movement disorders (EPS/extrapyramidal symptoms & TD/Tardive dyskinesia) - potentially permanent movement abnormalities, NMS/neuroleptic malignant syndrome (high fever, very rigid muscles, and rapid heartbeat - potentially fatal), sedation, and cardiac rhythm abnormalities. Benzodiazepines are not recommended for long-term use due to potent and dangerous side effects that include increased drowsiness, memory impairment, increased irritability, mood changes, and worsening of PTSD symptoms. Benzodiazepines increase respiratory depression which can aggravate conditions such as sleep apnea and COPD leading to possible . They should also never be combined with alcohol, pain medications (especially opioids), or street drugs because this can lead to overdose and possible . If you are under the influence of benzodiazepines while operating a motor vehicle and are involved in a car accident you can be charged with driving while intoxicated. Benzodiazepine use increases unsteady gait thereby increasing the risk of falls, broken bones, and concussions. Benzodiazepine use is intended for short-term use, up to 3 weeks at most. Long-term use of benzos can lead to dependence, rebound anxiety/agitation, and withdrawal symptoms that include sleep disturbance, irritability, increased tension and anxiety, panic attacks, hand tremor, sweating, difficulty in concentration, dry retching, and nausea, some weight loss, palpitations, headache, muscular pain and stiffness, and a host of perceptual changes. Antipsychotics education - reviewed side effects which may include metabolic syndrome, movement disorders (EPS/extrapyramidal symptoms & TD/Tardive dyskinesia) - potentially permanent movement abnormalities, NMS/neuroleptic malignant syndrome (high fever, very rigid muscles, and rapid heartbeat - potentially fatal), sedation, and cardiac rhythm abnormalities. 02/12/2024 Nicotine dependence, unspecified, uncomplicated (ICD-10 - F17.200) 02/12/2024 Opioid use disorder (ICD-10 - F11.99) 02/18/2024 Bipolar II disorder (ICD-10 - F31.81) Duration (acute/chronic), stability (controlled/uncontrol led): Chronic, stable on current medication regimen, room for improvement but patient declines making medication changes at this time Current medications/efficacy: Somewhat Previous FAILED medication trials: Trazodone, Ambien, Remeron, Seroquel, SNRIs (cause SI), Wellbutrin, Prozac, Abilify (ineffective) Current/previous therapies: Recently started therapy, seeing twice monthly Examination as documented - see pertinent aspects of office visit documentation. Pertinent diagnostics: NEED TO DISCUSS LABS AT FOLLOW UP Differential diagnoses: r/o BPD/cluster B traits RECOMMENDATIONS: Continue/modify medications as prescribed - educated patient/guardian on adverse effects, risks and benefits, as well as alternative treatments Consume well balanced diet, preferably low in saturated fats (solid at room temperature, such as butter, margarine, Crisco, etc) and low in sodium (<2,000mg per day). Consume plenty of fruits/vegetables, healthy grains/whole grains, unsaturated/healthy fats (liquid at room temperature, such as olive oil, sunflower seed oil, canola, vegetable, etc.). Exercise regularly - Develop an exercise routine. 30 minutes of moderate exercise (walking at a brisk pace) 5 times per week is recommended. You should work hard enough to cause a sweat but still be able to talk with others while exercising. Exercise improves overall health - improves blood pressure and blood sugar, helps control weight, reduces stress, and improves mood. Practice stress reduction techniques, such as guided imagery, journaling, aromatherapy, acupuncture/acupressu re, deep breathing, etc. Practice healthy sleep hygiene - maintain regular routine, no caffeine after 1PM, no exercise 1-2 hours prior to bedtime, keep bedroom dark and cool, no TV or electronics while in bed. Consider melatonin as needed. Consider cognitive behavioral therapy for insomnia (CBT-I). Consider/Continue therapy - REFERRAL TO [facility] TO ASSIST WITH DBT RESOURCES Consider substance cessation therapy as needed - contact office if desiring medication assisted therapy. Manage co-morbid conditions. Continue monitoring symptoms - report persistent or worsening/concerning symptoms to the office or go to the ER. For mental health CRISIS, please reach out to [phone] (National Suicide and Crisis Lifeline), 911, go to the emergency department, or contact the [facility] Crisis Unit/Team. Follow up as scheduled in 6 weeks or sooner if necessary. Follow up with PCP and/or other specialists as advised. 02/18/2024 Trauma and stressor-related disorder (ICD-10 - F43.9) Duration (acute/chronic), stability (controlled/uncontrol led): Chronic, stable on current medication regimen, room for improvement but patient declines making medication changes at this time Current medications/efficacy: Somewhat Previous FAILED medication trials: Trazodone, Ambien, Remeron, Seroquel, SNRIs (cause SI), Wellbutrin, Prozac, Abilify (ineffective) Current/previous therapies: Recently started therapy, seeing twice monthly Examination as documented - see pertinent aspects of office visit documentation. Pertinent diagnostics: NEED TO DISCUSS LABS AT FOLLOW UP Differential diagnoses: r/o BPD/cluster B traits RECOMMENDATIONS: Continue/modify medications as prescribed - educated patient/guardian on adverse effects, risks and benefits, as well as alternative treatments Consume well balanced diet, preferably low in saturated fats (solid at room temperature, such as butter, margarine, Crisco, etc) and low in sodium (<2,000mg per day). Consume plenty of fruits/vegetables, healthy grains/whole grains, unsaturated/healthy fats (liquid at room temperature, such as olive oil, sunflower seed oil, canola, vegetable, etc.). Exercise regularly - Develop an exercise routine. 30 minutes of moderate exercise (walking at a brisk pace) 5 times per week is recommended. You should work hard enough to cause a sweat but still be able to talk with others while exercising. Exercise improves overall health - improves blood pressure and blood sugar, helps control weight, reduces stress, and improves mood. Practice stress reduction techniques, such as guided imagery, journaling, aromatherapy, acupuncture/acupressu re, deep breathing, etc. Practice healthy sleep hygiene - maintain regular routine, no caffeine after 1PM, no exercise 1-2 hours prior to bedtime, keep bedroom dark and cool, no TV or electronics while in bed. Consider melatonin as needed. Consider cognitive behavioral therapy for insomnia (CBT-I). Consider/Continue therapy - REFERRAL TO [facility] TO ASSIST WITH DBT RESOURCES Consider substance cessation therapy as needed - contact office if desiring medication assisted therapy. Manage co-morbid conditions. Continue monitoring symptoms - report persistent or worsening/concerning symptoms to the office or go to the ER. For mental health CRISIS, please reach out to [phone] (National Suicide and Crisis Lifeline), 911, go to the emergency department, or contact the [facility] Crisis Unit/Team. Follow up as scheduled in 6 weeks or sooner if necessary. Follow up with PCP and/or other specialists as advised. 03/12/2024 Tobacco use disorder (ICD-10 - F17.200) 03/12/2024 Opioid use disorder (ICD-10 - F11.99) 03/16/2024 Bipolar II disorder (ICD-10 - F31.81) 03/31/2024 Bipolar II disorder (ICD-10 - F31.81) Duration (acute/chronic), stability (controlled/uncontrol led): Chronic, mildly uncontrolled on current medication regimen, room for improvement especially related to anxiety Current medications/efficacy: Somewhat, room for improvement Previous FAILED medication trials: Trazodone, Ambien, Remeron, Seroquel, SNRIs (cause SI), Wellbutrin, Prozac, Abilify (ineffective) Current/previous therapies: Sees therapist regularly, twice monthly, only recently started - called DBT recently at [facility] (plans to establish when able), also ordered DBT book which patient has recently received and started reading (feels this is going to be helpful) Examination as documented - see pertinent aspects of office visit documentation. Pertinent diagnostics: LABS ORDERED TODAY - PATIENT TO FOLLOW UP FOR LAB VISIT Differential diagnoses: r/o BPD/cluster B traits Provider and patient discussed potential medication changes extensively. Patient agreeable to trying oxcarbazepine and propranolol to medication regimen to help with mood/anxiety. Agreeable to considering trying low dose SNRI therapy later if necessary to help with anxiety/depression - patient reports she was never previously prescribed SNRI therapy while on mood stabilizing agents, caused anger/irritability and SI as monotherapy - provider explained that low dose SNRI therapy while patient is on mood stabilizing agents is less likely to cause these adverse effects; therefore, this is something to consider in the future as needed. Patient agreeable to continuing other medications as prescribed. Agreeable to labs being ordered - patient to follow up for lab visit. Agreeable to following up in 4 weeks, sooner if necessary. RECOMMENDATIONS: START propranolol as prescribed - educated patient/guardian on adverse effects, risks and benefits, as well as alternative treatments START oxcarbazepine as prescribed - educated patient/guardian on adverse effects, risks and benefits, as well as alternative treatments Continue/modify medications as prescribed - educated patient/guardian on adverse effects, risks and benefits, as well as alternative treatments Consume well balanced diet, preferably low in saturated fats (solid at room temperature, such as butter, margarine, Crisco, etc) and low in sodium (<2,000mg per day). Consume plenty of fruits/vegetables, healthy grains/whole grains, unsaturated/healthy fats (liquid at room temperature, such as olive oil, sunflower seed oil, canola, vegetable, etc.). Exercise regularly - Develop an exercise routine. 30 minutes of moderate exercise (walking at a brisk pace) 5 times per week is recommended. You should work hard enough to cause a sweat but still be able to talk with others while exercising. Exercise improves overall health - improves blood pressure and blood sugar, helps control weight, reduces stress, and improves mood. Practice stress reduction techniques, such as guided imagery, journaling, aromatherapy, acupuncture/acupressu re, deep breathing, etc. Practice healthy sleep hygiene - maintain regular routine, no caffeine after 1PM, no exercise 1-2 hours prior to bedtime, keep bedroom dark and cool, no TV or electronics while in bed. Consider melatonin as needed. Consider cognitive behavioral therapy for insomnia (CBT-I). Consider/Continue therapy - REFERRAL TO [facility] TO ASSIST WITH DBT RESOURCES Consider substance cessation therapy as needed - contact office if desiring medication assisted therapy. Manage co-morbid conditions. Continue monitoring symptoms - report persistent or worsening/concerning symptoms to the office or go to the ER. For mental health CRISIS, please reach out to [phone] (National Suicide and Crisis Lifeline), 911, go to the emergency department, or contact the [facility] Crisis Unit/Team. Follow up as scheduled in 6 weeks or sooner if necessary. Follow up with PCP and/or other specialists as advised. NEXT STEP: Consider increasing oxcarbazepine pending response/tolerability . Consider adding SNRI as needed, see above. Consider increasing propranolol as needed. Review labs. 03/31/2024 Cluster B personality disorder (ICD-10 - F60.89) See assessment and plan for bipolar II disorder 04/07/2024 Bipolar II disorder (ICD-10 - F31.81) 04/13/2024 Opioid use disorder (ICD-10 - F11.99) 04/27/2024 Bipolar II disorder (ICD-10 - F31.81) Duration (acute/chronic), stability (controlled/uncontrol led): Chronic, mildly uncontrolled on current medication regimen, room for improvement especially related to anxiety Current medications/efficacy: Somewhat, room for improvement Previous FAILED medication trials: Trazodone, Ambien, Remeron, Seroquel, SNRIs (cause SI), Wellbutrin, Prozac (ineffective), Abilify (ineffective), Vraylar, Vybriid (ineffective), gabapentin (irritable), pregabalin (irritable), amitriptyline (irritable), topiramate (irritable), Cybalta (irritable), Effexor (cannot remember how it affected her), Pristiq (lisa), sertaline (not as effective as Lexapro), citalopram (ineffective), oxcarbazepine (migraine exacerbation) Current/previous therapies: Sees therapist regularly, twice monthly, only recently started - called DBT recently at [facility] (plans to establish when able), also ordered DBT book which patient has recently received and started reading (feels this is going to be helpful) Examination as documented - see pertinent aspects of office visit documentation. Pertinent diagnostics: LABS COMPLETED IN 04/2024, SEE CHART Differential diagnoses: r/o BPD/cluster B traits Provider named various medications - patient confirmed/denied previous use and potential effects if previously used. Patient hasn't tried buspirone, paroxetine, vortioxetine. Patient has tried venlafaxine a long time ago - cannot remember how she responded to medication but doesn't recall having any negative effects from the medication. RECOMMENDATIONS: STOP oxcarbazepine as discussed due to migraine exacerbation - educated patient/guardian on adverse effects, risks and benefits, as well as alternative treatments START buspirone as prescribed to assist with anxiety/depression - educated patient/guardian on adverse effects, risks and benefits, as well as alternative treatments Do NOT take alprazolam on a scheduled basis as discussed, can take once daily in the morning with additional dose as needed/discussed - educated patient/guardian on adverse effects, risks and benefits, as well as alternative treatments Continue/modify other medications as prescribed - educated patient/guardian on adverse effects, risks and benefits, as well as alternative treatments Consume well balanced diet, preferably low in saturated fats (solid at room temperature, such as butter, margarine, Crisco, etc) and low in sodium (<2,000mg per day). Consume plenty of fruits/vegetables, healthy grains/whole grains, unsaturated/healthy fats (liquid at room temperature, such as olive oil, sunflower seed oil, canola, vegetable, etc.). Exercise regularly - Develop an exercise routine. 30 minutes of moderate exercise (walking at a brisk pace) 5 times per week is recommended. You should work hard enough to cause a sweat but still be able to talk with others while exercising. Exercise improves overall health - improves blood pressure and blood sugar, helps control weight, reduces stress, and improves mood. Practice stress reduction techniques, such as guided imagery, journaling, aromatherapy, acupuncture/acupressu re, deep breathing, etc. Practice healthy sleep hygiene - maintain regular routine, no caffeine after 1PM, no exercise 1-2 hours prior to bedtime, keep bedroom dark and cool, no TV or electronics while in bed. Consider melatonin as needed. Consider cognitive behavioral therapy for insomnia (CBT-I). Consider/Continue therapy - REFERRAL TO [facility] TO ASSIST WITH DBT RESOURCES Consider substance cessation therapy as needed - contact office if desiring medication assisted therapy. Manage co-morbid conditions. Continue monitoring symptoms - report persistent or worsening/concerning symptoms to the office or go to the ER. For mental health CRISIS, please reach out to [phone] (National Suicide and Crisis Lifeline), 911, go to the emergency department, or contact the [facility] Crisis Unit/Team. Follow up as scheduled in 4 weeks or sooner if necessary. Follow up with PCP and/or other specialists as advised. NEXT STEP: Consider increasing buspirone pending response/tolerability . Consider adding SNRI as needed, see above. Consider increasing propranolol as needed. Consider switching lumateperone to other SGA, such as risperidone. 05/12/2024 Nicotine dependence, unspecified, uncomplicated (ICD-10 - F17.200) 05/12/2024 Opioid use disorder (ICD-10 - F11.99) 05/18/2024 Bipolar II disorder (ICD-10 - F31.81) Duration (acute/chronic), stability (controlled/uncontrol led): Chronic, mildly uncontrolled on current medication regimen, room for improvement Current medications/efficacy: Somewhat, room for improvement Previous FAILED medication trials: Trazodone, Ambien, Remeron, Seroquel, SNRIs (cause SI), Wellbutrin, Prozac (ineffective), Abilify (ineffective), Vraylar, Vybriid (ineffective), gabapentin (irritable), pregabalin (irritable), amitriptyline (irritable), topiramate (irritable), Cybalta (irritable), Effexor (cannot remember how it affected her), Pristiq (lisa), sertaline (not as effective as Lexapro), citalopram (ineffective), oxcarbazepine (migraine exacerbation) Current/previous therapies: Sees therapist regularly, twice monthly, only recently started - called DBT recently at [place] (plans to establish when able), also ordered DBT book which patient has recently received and started reading (feels this is going to be helpful) Examination as documented - see pertinent aspects of office visit documentation. Pertinent diagnostics: LABS COMPLETED IN 04/2024, SEE CHART Differential diagnoses: r/o BPD/cluster B traits DISCUSSION DURING PREVIOUS VISIT: Provider named various medications - patient confirmed/denied previous use and potential effects if previously used. Patient hasn't tried buspirone, paroxetine, vortioxetine. Patient has tried venlafaxine a long time ago - cannot remember how she responded to medication but doesn't recall having any negative effects from the medication. RECOMMENDATIONS: INCREASE buspirone as prescribed to assist with anxiety/depression - educated patient/guardian on adverse effects, risks and benefits, as well as alternative treatments INCREASE doxazosin to assist with PTSD/nightmares - educated patient/guardian on adverse effects, risks and benefits, as well as alternative treatments Do NOT take alprazolam on a scheduled basis as discussed, continue titrating down (currently taking 1 tablet in the morning, 1 tablet in the evening, and 0.5 tablet in the afternoon IF necessary [not doing this often], see HPI) - educated patient/guardian on adverse effects, risks and benefits, as well as alternative treatments Continue/modify other medications as prescribed - educated patient/guardian on adverse effects, risks and benefits, as well as alternative treatments Consume well balanced diet, preferably low in saturated fats (solid at room temperature, such as butter, margarine, Crisco, etc) and low in sodium (<2,000mg per day). Consume plenty of fruits/vegetables, healthy grains/whole grains, unsaturated/healthy fats (liquid at room temperature, such as olive oil, sunflower seed oil, canola, vegetable, etc.). Exercise regularly - Develop an exercise routine. 30 minutes of moderate exercise (walking at a brisk pace) 5 times per week is recommended. You should work hard enough to cause a sweat but still be able to talk with others while exercising. Exercise improves overall health - improves blood pressure and blood sugar, helps control weight, reduces stress, and improves mood. Practice stress reduction techniques, such as guided imagery, journaling, aromatherapy, acupuncture/acupressu re, deep breathing, etc. Practice healthy sleep hygiene - maintain regular routine, no caffeine after 1PM, no exercise 1-2 hours prior to bedtime, keep bedroom dark and cool, no TV or electronics while in bed. Consider melatonin as needed. Consider cognitive behavioral therapy for insomnia (CBT-I). Consider/Continue therapy - REFERRAL TO [facility] TO ASSIST WITH DBT RESOURCES Consider substance cessation therapy as needed - contact office if desiring medication assisted therapy. Manage co-morbid conditions. Continue monitoring symptoms - report persistent or worsening/concerning symptoms to the office or go to the ER. For mental health CRISIS, please reach out to [phone] (National Suicide and Crisis Lifeline), 911, go to the emergency department, or contact the [facility] Crisis Unit/Team. Follow up as scheduled in 4 weeks or sooner if necessary. Follow up with PCP and/or other specialists as advised. NEXT STEP: Consider increasing buspirone pending response/tolerability . Consider adding SNRI as needed, see above. Consider increasing propranolol as needed. Consider switching lumateperone to other SGA, such as risperidone. 06/15/2024 Nicotine dependence, unspecified, uncomplicated (ICD-10 - F17.200) 06/15/2024 Opioid use disorder (ICD-10 - F11.99) 06/17/2024 Bipolar II disorder (ICD-10 - F31.81) Duration (acute/chronic), stability (controlled/uncontrol led): Chronic, improving with recent medication adjustments, room for improvement Current medications/efficacy: Somewhat, room for improvement Previous FAILED medication trials: Trazodone (increased dreams), Ambien (became ineffective), Remeron (irritable), Seroquel (weight gain), SNRIs (cause SI), Wellbutrin, Prozac (ineffective), Abilify (ineffective), Vraylar, Vybriid (ineffective), gabapentin (irritable), pregabalin (irritable), amitriptyline (irritable), topiramate (irritable), Cybalta (irritable), Effexor (cannot remember how it affected her), Pristiq (lisa), sertaline (not as effective as Lexapro), citalopram (ineffective), oxcarbazepine (migraine exacerbation) Current/previous therapies: Sees therapist regularly, twice monthly, only recently started - called DBT recently at [place] (plans to establish when able), also ordered DBT book which patient has recently received and started reading (feels this is going to be helpful) Examination as documented - see pertinent aspects of office visit documentation. Pertinent diagnostics: LABS COMPLETED IN 04/2024, SEE CHART Differential diagnoses: r/o BPD/cluster B traits Patient agreeable to increasing buspirone to assist with anxiety/depression. Agreeable to increasing doxazosin to assist with nightmares/PTSD. Agreeable to starting eszopiclone to assist with sleep. Agreeable to continuing to cut back on alprazolam as discussed - provider recommended decreasing evening dose of alprazolam to 0.5 tablet once starting eszopiclone, recommended discontinuing afternoon 0.5 tablet OR decreasing morning dose to 0.5 tablet after taking increased buspirone for at least 1 week. Agreeable to following up in 4 weeks, sooner if necessary. DISCUSSION DURING PREVIOUS VISIT: Provider named various medications - patient confirmed/denied previous use and potential effects if previously used. Patient hasn't tried buspirone, paroxetine, vortioxetine. Patient has tried venlafaxine a long time ago - cannot remember how she responded to medication but doesn't recall having any negative effects from the medication. RECOMMENDATIONS: INCREASE buspirone as prescribed to assist with anxiety/depression - educated patient/guardian on adverse effects, risks and benefits, as well as alternative treatments INCREASE doxazosin to assist with PTSD/nightmares - educated patient/guardian on adverse effects, risks and benefits, as well as alternative treatments START eszopiclone as prescribed to assist with sleep (will ideally help patient decrease alprazolam use as patient reportedly cannot sleep without alprazolam currently) - educated patient/guardian on adverse effects, risks and benefits, as well as alternative treatments Do NOT take alprazolam on a scheduled basis as discussed, continue titrating down (currently taking 1 tablet in the morning, 1 tablet in the evening, and 0.5 tablet in the afternoon IF necessary [not doing this often], see HPI) - educated patient/guardian on adverse effects, risks and benefits, as well as alternative treatments Continue/modify other medications as prescribed - educated patient/guardian on adverse effects, risks and benefits, as well as alternative treatments Consume well balanced diet, preferably low in saturated fats (solid at room temperature, such as butter, margarine, Crisco, etc) and low in sodium (<2,000mg per day). Consume plenty of fruits/vegetables, healthy grains/whole grains, unsaturated/healthy fats (liquid at room temperature, such as olive oil, sunflower seed oil, canola, vegetable, etc.). Exercise regularly - Develop an exercise routine. 30 minutes of moderate exercise (walking at a brisk pace) 5 times per week is recommended. You should work hard enough to cause a sweat but still be able to talk with others while exercising. Exercise improves overall health - improves blood pressure and blood sugar, helps control weight, reduces stress, and improves mood. Practice stress reduction techniques, such as guided imagery, journaling, aromatherapy, acupuncture/acupressu re, deep breathing, etc. Practice healthy sleep hygiene - maintain regular routine, no caffeine after 1PM, no exercise 1-2 hours prior to bedtime, keep bedroom dark and cool, no TV or electronics while in bed. Consider melatonin as needed. Consider cognitive behavioral therapy for insomnia (CBT-I). Consider/Continue therapy - REFERRAL TO [facility] TO ASSIST WITH DBT RESOURCES Consider substance cessation therapy as needed - contact office if desiring medication assisted therapy. Manage co-morbid conditions. Continue monitoring symptoms - report persistent or worsening/concerning symptoms to the office or go to the ER. For mental health CRISIS, please reach out to [phone] (National Suicide and Crisis Lifeline), 911, go to the emergency department, or contact the [facility] Crisis Unit/Team. Follow up as scheduled in 4 weeks or sooner if necessary. Follow up with PCP and/or other specialists as advised. NEXT STEP: Consider increasing buspirone. Consider increasing doxazosin - consider twice daily dosing if necessary to manage daytime symptoms of PTSD. Consider increasing eszopiclone pending response/tolerability . Consider adding SNRI as needed, see above. Consider increasing propranolol as needed. Consider switching lumateperone to other SGA, such as risperidone. 07/15/2024 Bipolar II disorder (ICD-10 - F31.81) Duration (acute/chronic), stability (controlled/uncontrol led): Chronic, improving with recent medication adjustments, room for improvement Current medications/efficacy: Somewhat, room for improvement Previous FAILED medication trials: Trazodone (increased dreams), Ambien (became ineffective), Remeron (irritable), Seroquel (weight gain), SNRIs (cause SI), Wellbutrin, Prozac (ineffective), Abilify (ineffective), Vraylar, Vybriid (ineffective), gabapentin (irritable), pregabalin (irritable), amitriptyline (irritable), topiramate (irritable), Cybalta (irritable), Effexor (cannot remember how it affected her), Pristiq (lisa), sertaline (not as effective as Lexapro), citalopram (ineffective), oxcarbazepine (migraine exacerbation) Current/previous therapies: Sees therapist regularly, twice monthly, only recently started - called DBT recently at [place] (plans to establish when able), also ordered DBT book which patient has recently received and started reading (feels this is going to be helpful) Examination as documented - see pertinent aspects of office visit documentation. Pertinent diagnostics: LABS COMPLETED IN 04/2024, SEE CHART Differential diagnoses: r/o BPD/cluster B traits DISCUSSION DURING PREVIOUS VISIT: Provider named various medications - patient confirmed/denied previous use and potential effects if previously used. Patient hasn't tried buspirone, paroxetine, vortioxetine. Patient has tried venlafaxine a long time ago - cannot remember how she responded to medication but doesn't recall having any negative effects from the medication. RECOMMENDATIONS: INCREASE buspirone as prescribed to assist with anxiety/depression - educated patient/guardian on adverse effects, risks and benefits, as well as alternative treatments INCREASE propranolol and SWITCH to ER formulation as prescribed to assist with anxiety - educated patient/guardian on adverse effects, risks and benefits, as well as alternative treatments START eszopiclone as prescribed to assist with sleep (will ideally help patient decrease alprazolam use as patient reportedly cannot sleep without alprazolam currently) - educated patient/guardian on adverse effects, risks and benefits, as well as alternative treatments Do NOT take alprazolam on a scheduled basis as discussed, continue titrating down as able - educated patient/guardian on adverse effects, risks and benefits, as well as alternative treatments Continue/modify other medications as prescribed - educated patient/guardian on adverse effects, risks and benefits, as well as alternative treatments Consume well balanced diet, preferably low in saturated fats (solid at room temperature, such as butter, margarine, Crisco, etc) and low in sodium (<2,000mg per day). Consume plenty of fruits/vegetables, healthy grains/whole grains, unsaturated/healthy fats (liquid at room temperature, such as olive oil, sunflower seed oil, canola, vegetable, etc.). Exercise regularly - Develop an exercise routine. 30 minutes of moderate exercise (walking at a brisk pace) 5 times per week is recommended. You should work hard enough to cause a sweat but still be able to talk with others while exercising. Exercise improves overall health - improves blood pressure and blood sugar, helps control weight, reduces stress, and improves mood. Practice stress reduction techniques, such as guided imagery, journaling, aromatherapy, acupuncture/acupressu re, deep breathing, etc. Practice healthy sleep hygiene - maintain regular routine, no caffeine after 1PM, no exercise 1-2 hours prior to bedtime, keep bedroom dark and cool, no TV or electronics while in bed. Consider melatonin as needed. Consider cognitive behavioral therapy for insomnia (CBT-I). Consider/Continue therapy - REFERRAL TO [facility] TO ASSIST WITH DBT RESOURCES Consider substance cessation therapy as needed - contact office if desiring medication assisted therapy. Manage co-morbid conditions. Continue monitoring symptoms - report persistent or worsening/concerning symptoms to the office or go to the ER. For mental health CRISIS, please reach out to [phone] (National Suicide and Crisis Lifeline), 911, go to the emergency department, or contact the [facility] Crisis Unit/Team. Follow up as scheduled in 4 weeks or sooner if necessary. Follow up with PCP and/or other specialists as advised. NEXT STEP: Consider increasing doxazosin - consider twice daily dosing if necessary to manage daytime symptoms of PTSD. Consider increasing eszopiclone pending response/tolerability . Consider adding SNRI as needed, see above. Consider increasing propranolol as needed. Consider switching lumateperone to other SGA, such as risperidone. 07/19/2024 Nicotine dependence, unspecified, uncomplicated (ICD-10 - F17.200) 07/19/2024 Opioid use disorder (ICD-10 - F11.99) 08/11/2024 Bipolar II disorder (ICD-10 - F31.81) Duration (acute/chronic), stability (controlled/uncontrol led): Chronic, improving with recent medication adjustments, room for improvement Current medications/efficacy: Somewhat, room for improvement Previous medication trials: Trazodone (increased dreams), Ambien (became ineffective), Remeron (irritable), Seroquel (weight gain), SNRIs (cause SI), Wellbutrin, Prozac (ineffective), Abilify (ineffective), Vraylar, Vybriid (ineffective), gabapentin (irritable), pregabalin (irritable), amitriptyline (irritable), topiramate (irritable), Cybalta (irritable), Effexor (cannot remember how it affected her), Pristiq (lisa), sertaline (not as effective as Lexapro), citalopram (ineffective), oxcarbazepine (migraine exacerbation), Chantix (lisa) Current/previous therapies: Sees therapist regularly, twice monthly, only recently started - called DBT recently at [place] (plans to establish when able), also ordered DBT book which patient has recently received and started reading (feels this is going to be helpful) Examination as documented - see pertinent aspects of office visit documentation. Pertinent diagnostics: LABS COMPLETED IN 04/2024, SEE CHART Differential diagnoses: r/o BPD/cluster B traits DISCUSSION DURING PREVIOUS VISIT: Provider named various medications - patient confirmed/denied previous use and potential effects if previously used. Patient hasn't tried buspirone, paroxetine, vortioxetine. Patient has tried venlafaxine a long time ago - cannot remember how she responded to medication but doesn't recall having any negative effects from the medication. RECOMMENDATIONS: INCREASE propranolol as prescribed to assist with anxiety/panic - educated patient/guardian on adverse effects, risks and benefits, as well as alternative treatments INCREASE eszopiclone as prescribed to assist with sleep (will ideally help patient decrease alprazolam use as patient reportedly cannot sleep without alprazolam currently) - educated patient/guardian on adverse effects, risks and benefits, as well as alternative treatments Do NOT take alprazolam on a scheduled basis as discussed, continue titrating down as able/discussed [0.5 tablet in the morning, 0.5 tablet in the afternoon (up to 1 tablet in the afternoon if necessary), and STOP bedtime dose of alprazolam (0.25 tablet)] - educated patient/guardian on adverse effects, risks and benefits, as well as alternative treatments Continue/modify other medications as prescribed - educated patient/guardian on adverse effects, risks and benefits, as well as alternative treatments Consume well balanced diet, preferably low in saturated fats (solid at room temperature, such as butter, margarine, Crisco, etc) and low in sodium (<2,000mg per day). Consume plenty of fruits/vegetables, healthy grains/whole grains, unsaturated/healthy fats (liquid at room temperature, such as olive oil, sunflower seed oil, canola, vegetable, etc.). Exercise regularly - Develop an exercise routine. 30 minutes of moderate exercise (walking at a brisk pace) 5 times per week is recommended. You should work hard enough to cause a sweat but still be able to talk with others while exercising. Exercise improves overall health - improves blood pressure and blood sugar, helps control weight, reduces stress, and improves mood. Practice stress reduction techniques, such as guided imagery, journaling, aromatherapy, acupuncture/acupressu re, deep breathing, etc. Practice healthy sleep hygiene - maintain regular routine, no caffeine after 1PM, no exercise 1-2 hours prior to bedtime, keep bedroom dark and cool, no TV or electronics while in bed. Consider melatonin as needed. Consider cognitive behavioral therapy for insomnia (CBT-I). Consider/Continue therapy - REFERRAL TO [facility] TO ASSIST WITH DBT RESOURCES Consider substance cessation therapy as needed - contact office if desiring medication assisted therapy. Manage co-morbid conditions. Continue monitoring symptoms - report persistent or worsening/concerning symptoms to the office or go to the ER. For mental health CRISIS, please reach out to [phone] (National Suicide and Crisis Lifeline), 911, go to the emergency department, or contact the [facility] Crisis Unit/Team. Follow up as scheduled in 4 weeks or sooner if necessary. Follow up with PCP and/or other specialists as advised. NEXT STEP: Consider increasing doxazosin - consider twice daily dosing if necessary to manage daytime symptoms of PTSD. Consider increasing eszopiclone pending response/tolerability . Consider adding SNRI as needed, see above. Consider increasing propranolol as needed. Consider switching lumateperone to other SGA, such as risperidone. 08/19/2024 Opioid use disorder (ICD-10 - F11.99) 07/15/2024 Cluster B personality disorder (ICD-10 - F60.89) See assessment and plan for bipolar II disorder 08/11/2024 Cluster B personality disorder (ICD-10 - F60.89) See assessment and plan for bipolar II disorder 06/17/2024 Cluster B personality disorder (ICD-10 - F60.89) See assessment and plan for bipolar II disorder 04/27/2024 Cluster B personality disorder (ICD-10 - F60.89) See assessment and plan for bipolar II disorder 05/18/2024 Cluster B personality disorder (ICD-10 - F60.89) See assessment and plan for bipolar II disorder 04/07/2024 Trauma and stressor-related disorder (ICD-10 - F43.9) 01/19/2024 Trauma and stressor-related disorder (ICD-10 - F43.9) Antidepressant education - reviewed side effects which may include increased risk of suicide, anxiety, sleep disturbance, nausea, dry mouth, increased bruising, sexual dysfunction, lisa, wt gain, and serotonin syndrome. Reasons, potential benefits, interactions and side effects of all medications were discussed. The Patient/Guardian asked appropriate questions, appeared to understand the answers, and decided to accept the treatment and continue being followed. Alternatives and expected course without treatment were reviewed. The Patient/Guardian is aware of the need to contact the office or return for an earlier appointment if any problems or concerns arise. May also contact the 24-hour crisis hotline (R), refer to the closest emergency room or call 911 if new symptoms arise of existing symptoms worsen. The Patient/Guardian is aware that this would apply to symptoms like: suicidal ideation, homicidal ideation, high risk behaviors, manic symptoms, psychotic symptoms, physical symptoms, or any other symptoms that may be dangerous to self or others. Greater than 50% of time spent on coordination and counseling where psychopharmacology as well as psychotherapeutic interventions were discussed along with review of treatments in the past. Education provided concerning need for adequate hydration. Patient/Guardian verbalized understanding of education, treatment plan and follow up. May self-administer or be administered own oral medication per [facility] Protocols. Provided informed consent with understanding of side effects, risks and benefits as well as alternative treatments as previously discussed and with the above recommended medications ang other aspects of the treatment program. Agrees to return sooner if symptoms worsen or suicidal or homicidal ideations occur. support and education provided concerning illness and treatment plan, risks and benefits, pt verbalized understanding of the same and agreeable 04/13/2024 Nicotine dependence, unspecified, uncomplicated (ICD-10 - F17.200) 03/31/2024 Trauma and stressor-related disorder (ICD-10 - F43.9) See assessment and plan for bipolar II disorder 02/18/2024 Alcohol use disorder (ICD-10 - F10.99) Duration (acute/chronic), stability (controlled/uncontrol led): Previous problem, last drink in 11/2023, well controlled with current medication regimen Current medications/efficacy: Yes Previous FAILED medication trials: N/A Current/previous therapies: N/A Examination as documented - see pertinent aspects of office visit documentation. RECOMMENDATIONS: Continue/modify medications as prescribed - educated patient/guardian on adverse effects, risks and benefits, as well as alternative treatments Consume well balanced diet, preferably low in saturated fats (solid at room temperature, such as butter, margarine, Crisco, etc) and low in sodium (<2,000mg per day). Consume plenty of fruits/vegetables, healthy grains/whole grains, unsaturated/healthy fats (liquid at room temperature, such as olive oil, sunflower seed oil, canola, vegetable, etc.). Exercise regularly - Develop an exercise routine. 30 minutes of moderate exercise (walking at a brisk pace) 5 times per week is recommended. You should work hard enough to cause a sweat but still be able to talk with others while exercising. Exercise improves overall health - improves blood pressure and blood sugar, helps control weight, reduces stress, and improves mood. Practice stress reduction techniques, such as guided imagery, journaling, aromatherapy, acupuncture/acupressu re, deep breathing, etc. Practice healthy sleep hygiene - maintain regular routine, no caffeine after 1PM, no exercise 1-2 hours prior to bedtime, keep bedroom dark and cool, no TV or electronics while in bed. Consider melatonin as needed. Consider cognitive behavioral therapy for insomnia (CBT-I). Consider/Continue therapy. Consider substance cessation therapy as needed - contact office if desiring medication assisted therapy. Manage co-morbid conditions. Continue monitoring symptoms - report persistent or worsening/concerning symptoms to the office or go to the ER. For mental health CRISIS, please reach out to [phone] ([facility]icide and Crisis [facility]), 911, go to the emergency department, or contact the [facility] Crisis Unit/Team. Follow up as scheduled or sooner if necessary. Follow up with PCP and/or other specialists as advised. 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 Reasons, potential benefits, interactions and side effects of all medications were discussed. The Patient/Guardian asked appropriate questions, appeared to understand the answers, and decided to accept the treatment and continue being followed. Alternatives and expected course without treatment were reviewed. The Patient/Guardian is aware of the need to contact the office or return for an earlier appointment if any problems or concerns arise. May also contact the 24-hour crisis hotline ([facility]), refer to the closest emergency room or call 911 if new symptoms arise of existing symptoms worsen. The Patient/Guardian is aware that this would apply to symptoms like: suicidal ideation, homicidal ideation, high risk behaviors, manic symptoms, psychotic symptoms, physical symptoms, or any other symptoms that may be dangerous to self or others. Greater than 50% of time spent on coordination and counseling where psychopharmacology as well as psychotherapeutic interventions were discussed along with review of treatments in the past. Education provided concerning need for adequate hydration. Patient/Guardian verbalized understanding of education, treatment plan and follow up. May self-administer or be administered own oral medication per [place] [facility]. Provided informed consent with understanding of side effects, risks and benefits as well as alternative treatments as previously discussed and with the above recommended medications ang other aspects of the treatment program. Agrees to return sooner if symptoms worsen or suicidal or homicidal ideations occur. 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 Discussed benefits, risks, and SE. Begin naltrexone. Take as prescribed. Reviewed purpose (alcohol reduction or cessation), benefits, and risks - nausea, vomiting, decreased appetite, dizziness, dysphoria, anxiety. 12/09/2023 Nutritional counseling (ICD-10 - Z71.3) 12/23/2023 Alcohol use disorder (ICD-10 - F10.99) Continue MAT services Encouraged 12/01/2023 Substance use disorder (ICD-10 - F19.90) Pt is going to be admitted to [facility] for detox 01/13/2024 Nutritional counseling (ICD-10 - Z71.3) 01/19/2024 Alcohol use disorder (ICD-10 - F10.99) Continue MAT services Encouraged 02/18/2024 Opioid use disorder (ICD-10 - F11.99) Duration (acute/chronic), stability (controlled/uncontrol led): Previous problem, pain medications through pain management, well controlled on Suboxone Current medications/efficacy: Yes Previous FAILED medication trials: N/A Examination as documented - see pertinent aspects of office visit documentation. RECOMMENDATIONS: Continue/modify medications as prescribed - educated patient/guardian on adverse effects, risks and benefits, as well as alternative treatments Consume well balanced diet, preferably low in saturated fats (solid at room temperature, such as butter, margarine, Crisco, etc) and low in sodium (<2,000mg per day). Consume plenty of fruits/vegetables, healthy grains/whole grains, unsaturated/healthy fats (liquid at room temperature, such as olive oil, sunflower seed oil, canola, vegetable, etc.). Exercise regularly - Develop an exercise routine. 30 minutes of moderate exercise (walking at a brisk pace) 5 times per week is recommended. You should work hard enough to cause a sweat but still be able to talk with others while exercising. Exercise improves overall health - improves blood pressure and blood sugar, helps control weight, reduces stress, and improves mood. Practice stress reduction techniques, such as guided imagery, journaling, aromatherapy, acupuncture/acupressu re, deep breathing, etc. Practice healthy sleep hygiene - maintain regular routine, no caffeine after 1PM, no exercise 1-2 hours prior to bedtime, keep bedroom dark and cool, no TV or electronics while in bed. Consider melatonin as needed. Consider cognitive behavioral therapy for insomnia (CBT-I). Consider/Continue therapy. Consider substance cessation therapy as needed - contact office if desiring medication assisted therapy. Manage co-morbid conditions. Continue monitoring symptoms - report persistent or worsening/concerning symptoms to the office or go to the ER. For mental health CRISIS, please reach out to [phone] ([facility] Suicide and Crisis Lifeline), 911, go to the emergency department, or contact the [facility] Crisis Unit/Team. Follow up as scheduled or sooner if necessary. Follow up with PCP and/or other specialists as advised. 03/31/2024 Alcohol use disorder (ICD-10 - F10.99) Duration (acute/chronic), stability (controlled/uncontrol led): Previous problem, last drink in 11/2023, well controlled with current medication regimen Current medications/efficacy: Yes Previous FAILED medication trials: N/A Current/previous therapies: N/A Examination as documented - see pertinent aspects of office visit documentation. RECOMMENDATIONS: Continue/modify medications as prescribed - educated patient/guardian on adverse effects, risks and benefits, as well as alternative treatments Consume well balanced diet, preferably low in saturated fats (solid at room temperature, such as butter, margarine, Crisco, etc) and low in sodium (<2,000mg per day). Consume plenty of fruits/vegetables, healthy grains/whole grains, unsaturated/healthy fats (liquid at room temperature, such as olive oil, sunflower seed oil, canola, vegetable, etc.). Exercise regularly - Develop an exercise routine. 30 minutes of moderate exercise (walking at a brisk pace) 5 times per week is recommended. You should work hard enough to cause a sweat but still be able to talk with others while exercising. Exercise improves overall health - improves blood pressure and blood sugar, helps control weight, reduces stress, and improves mood. Practice stress reduction techniques, such as guided imagery, journaling, aromatherapy, acupuncture/acupressu re, deep breathing, etc. Practice healthy sleep hygiene - maintain regular routine, no caffeine after 1PM, no exercise 1-2 hours prior to bedtime, keep bedroom dark and cool, no TV or electronics while in bed. Consider melatonin as needed. Consider cognitive behavioral therapy for insomnia (CBT-I). Consider/Continue therapy. Consider substance cessation therapy as needed - contact office if desiring medication assisted therapy. Manage co-morbid conditions. Continue monitoring symptoms - report persistent or worsening/concerning symptoms to the office or go to the ER. For mental health CRISIS, please reach out to [phone] (National Suicide and Crisis Lifeline), 911, go to the emergency department, or contact the [facility] Crisis Unit/Team. Follow up as scheduled or sooner if necessary. Follow up with PCP and/or other specialists as advised. NEXT STEP: Consider MAT as needed. 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) See assessment and plan for bipolar II disorder 04/27/2024 Trauma and stressor-related disorder (ICD-10 - F43.9) See assessment and plan for bipolar II disorder 06/17/2024 Trauma and stressor-related disorder (ICD-10 - F43.9) See assessment and plan for bipolar II disorder 08/11/2024 Trauma and stressor-related disorder (ICD-10 - F43.9) See assessment and plan for bipolar II disorder 07/15/2024 Trauma and stressor-related disorder (ICD-10 - F43.9) See assessment and plan for bipolar II disorder 08/11/2024 Alcohol use disorder (ICD-10 - F10.99) Duration (acute/chronic), stability (controlled/uncontrol led): Previous problem, last drink in 11/2023, well controlled with current medication regimen Current medications/efficacy: Yes Previous FAILED medication trials: N/A Current/previous therapies: N/A Examination as documented - see pertinent aspects of office visit documentation. RECOMMENDATIONS: Continue/modify medications as prescribed - educated patient/guardian on adverse effects, risks and benefits, as well as alternative treatments Consume well balanced diet, preferably low in saturated fats (solid at room temperature, such as butter, margarine, Crisco, etc) and low in sodium (<2,000mg per day). Consume plenty of fruits/vegetables, healthy grains/whole grains, unsaturated/healthy fats (liquid at room temperature, such as olive oil, sunflower seed oil, canola, vegetable, etc.). Exercise regularly - Develop an exercise routine. 30 minutes of moderate exercise (walking at a brisk pace) 5 times per week is recommended. You should work hard enough to cause a sweat but still be able to talk with others while exercising. Exercise improves overall health - improves blood pressure and blood sugar, helps control weight, reduces stress, and improves mood. Practice stress reduction techniques, such as guided imagery, journaling, aromatherapy, acupuncture/acupressu re, deep breathing, etc. Practice healthy sleep hygiene - maintain regular routine, no caffeine after 1PM, no exercise 1-2 hours prior to bedtime, keep bedroom dark and cool, no TV or electronics while in bed. Consider melatonin as needed. Consider cognitive behavioral therapy for insomnia (CBT-I). Consider/Continue therapy. Consider substance cessation therapy as needed - contact office if desiring medication assisted therapy. Manage co-morbid conditions. Continue monitoring symptoms - report persistent or worsening/concerning symptoms to the office or go to the ER. For mental health CRISIS, please reach out to [phone] (National Suicide and Crisis Lifeline), 911, go to the emergency department, or contact the [facility] Crisis Unit/Team. Follow up as scheduled or sooner if necessary. Follow up with PCP and/or other specialists as advised. NEXT STEP: Consider MAT as needed. 06/17/2024 Alcohol use disorder (ICD-10 - F10.99) Duration (acute/chronic), stability (controlled/uncontrol led): Previous problem, last drink in 11/2023, well controlled with current medication regimen Current medications/efficacy: Yes Previous FAILED medication trials: N/A Current/previous therapies: N/A Examination as documented - see pertinent aspects of office visit documentation. RECOMMENDATIONS: Continue/modify medications as prescribed - educated patient/guardian on adverse effects, risks and benefits, as well as alternative treatments Consume well balanced diet, preferably low in saturated fats (solid at room temperature, such as butter, margarine, Crisco, etc) and low in sodium (<2,000mg per day). Consume plenty of fruits/vegetables, healthy grains/whole grains, unsaturated/healthy fats (liquid at room temperature, such as olive oil, sunflower seed oil, canola, vegetable, etc.). Exercise regularly - Develop an exercise routine. 30 minutes of moderate exercise (walking at a brisk pace) 5 times per week is recommended. You should work hard enough to cause a sweat but still be able to talk with others while exercising. Exercise improves overall health - improves blood pressure and blood sugar, helps control weight, reduces stress, and improves mood. Practice stress reduction techniques, such as guided imagery, journaling, aromatherapy, acupuncture/acupressu re, deep breathing, etc. Practice healthy sleep hygiene - maintain regular routine, no caffeine after 1PM, no exercise 1-2 hours prior to bedtime, keep bedroom dark and cool, no TV or electronics while in bed. Consider melatonin as needed. Consider cognitive behavioral therapy for insomnia (CBT-I). Consider/Continue therapy. Consider substance cessation therapy as needed - contact office if desiring medication assisted therapy. Manage co-morbid conditions. Continue monitoring symptoms - report persistent or worsening/concerning symptoms to the office or go to the ER. For mental health CRISIS, please reach out to [phone] (National Suicide and Crisis Lifeline), 911, go to the emergency department, or contact the [facility] Crisis Unit/Team. Follow up as scheduled or sooner if necessary. Follow up with PCP and/or other specialists as advised. NEXT STEP: Consider MAT as needed. 07/15/2024 Alcohol use disorder (ICD-10 - F10.99) Duration (acute/chronic), stability (controlled/uncontrol led): Previous problem, last drink in 11/2023, well controlled with current medication regimen Current medications/efficacy: Yes Previous FAILED medication trials: N/A Current/previous therapies: N/A Examination as documented - see pertinent aspects of office visit documentation. RECOMMENDATIONS: Continue/modify medications as prescribed - educated patient/guardian on adverse effects, risks and benefits, as well as alternative treatments Consume well balanced diet, preferably low in saturated fats (solid at room temperature, such as butter, margarine, Crisco, etc) and low in sodium (<2,000mg per day). Consume plenty of fruits/vegetables, healthy grains/whole grains, unsaturated/healthy fats (liquid at room temperature, such as olive oil, sunflower seed oil, canola, vegetable, etc.). Exercise regularly - Develop an exercise routine. 30 minutes of moderate exercise (walking at a brisk pace) 5 times per week is recommended. You should work hard enough to cause a sweat but still be able to talk with others while exercising. Exercise improves overall health - improves blood pressure and blood sugar, helps control weight, reduces stress, and improves mood. Practice stress reduction techniques, such as guided imagery, journaling, aromatherapy, acupuncture/acupressu re, deep breathing, etc. Practice healthy sleep hygiene - maintain regular routine, no caffeine after 1PM, no exercise 1-2 hours prior to bedtime, keep bedroom dark and cool, no TV or electronics while in bed. Consider melatonin as needed. Consider cognitive behavioral therapy for insomnia (CBT-I). Consider/Continue therapy. Consider substance cessation therapy as needed - contact office if desiring medication assisted therapy. Manage co-morbid conditions. Continue monitoring symptoms - report persistent or worsening/concerning symptoms to the office or go to the ER. For mental health CRISIS, please reach out to [phone] (National Suicide and Crisis Lifeline), 911, go to the emergency department, or contact the [facility] Crisis Unit/Team. Follow up as scheduled or sooner if necessary. Follow up with PCP and/or other specialists as advised. NEXT STEP: Consider MAT as needed. 04/27/2024 Alcohol use disorder (ICD-10 - F10.99) Duration (acute/chronic), stability (controlled/uncontrol led): Previous problem, last drink in 11/2023, well controlled with current medication regimen Current medications/efficacy: Yes Previous FAILED medication trials: N/A Current/previous therapies: N/A Examination as documented - see pertinent aspects of office visit documentation. RECOMMENDATIONS: Continue/modify medications as prescribed - educated patient/guardian on adverse effects, risks and benefits, as well as alternative treatments Consume well balanced diet, preferably low in saturated fats (solid at room temperature, such as butter, margarine, Crisco, etc) and low in sodium (<2,000mg per day). Consume plenty of fruits/vegetables, healthy grains/whole grains, unsaturated/healthy fats (liquid at room temperature, such as olive oil, sunflower seed oil, canola, vegetable, etc.). Exercise regularly - Develop an exercise routine. 30 minutes of moderate exercise (walking at a brisk pace) 5 times per week is recommended. You should work hard enough to cause a sweat but still be able to talk with others while exercising. Exercise improves overall health - improves blood pressure and blood sugar, helps control weight, reduces stress, and improves mood. Practice stress reduction techniques, such as guided imagery, journaling, aromatherapy, acupuncture/acupressu re, deep breathing, etc. Practice healthy sleep hygiene - maintain regular routine, no caffeine after 1PM, no exercise 1-2 hours prior to bedtime, keep bedroom dark and cool, no TV or electronics while in bed. Consider melatonin as needed. Consider cognitive behavioral therapy for insomnia (CBT-I). Consider/Continue therapy. Consider substance cessation therapy as needed - contact office if desiring medication assisted therapy. Manage co-morbid conditions. Continue monitoring symptoms - report persistent or worsening/concerning symptoms to the office or go to the ER. For mental health CRISIS, please reach out to [phone] (National Suicide and Crisis Lifeline), 911, go to the emergency department, or contact the [facility] Crisis Unit/Team. Follow up as scheduled or sooner if necessary. Follow up with PCP and/or other specialists as advised. NEXT STEP: Consider MAT as needed. 05/18/2024 Alcohol use disorder (ICD-10 - F10.99) Duration (acute/chronic), stability (controlled/uncontrol led): Previous problem, last drink in 11/2023, well controlled with current medication regimen Current medications/efficacy: Yes Previous FAILED medication trials: N/A Current/previous therapies: N/A Examination as documented - see pertinent aspects of office visit documentation. RECOMMENDATIONS: Continue/modify medications as prescribed - educated patient/guardian on adverse effects, risks and benefits, as well as alternative treatments Consume well balanced diet, preferably low in saturated fats (solid at room temperature, such as butter, margarine, Crisco, etc) and low in sodium (<2,000mg per day). Consume plenty of fruits/vegetables, healthy grains/whole grains, unsaturated/healthy fats (liquid at room temperature, such as olive oil, sunflower seed oil, canola, vegetable, etc.). Exercise regularly - Develop an exercise routine. 30 minutes of moderate exercise (walking at a brisk pace) 5 times per week is recommended. You should work hard enough to cause a sweat but still be able to talk with others while exercising. Exercise improves overall health - improves blood pressure and blood sugar, helps control weight, reduces stress, and improves mood. Practice stress reduction techniques, such as guided imagery, journaling, aromatherapy, acupuncture/acupressu re, deep breathing, etc. Practice healthy sleep hygiene - maintain regular routine, no caffeine after 1PM, no exercise 1-2 hours prior to bedtime, keep bedroom dark and cool, no TV or electronics while in bed. Consider melatonin as needed. Consider cognitive behavioral therapy for insomnia (CBT-I). Consider/Continue therapy. Consider substance cessation therapy as needed - contact office if desiring medication assisted therapy. Manage co-morbid conditions. Continue monitoring symptoms - report persistent or worsening/concerning symptoms to the office or go to the ER. For mental health CRISIS, please reach out to [phone] (National Suicide and Crisis Lifeline), 911, go to the emergency department, or contact the [facility] Crisis Unit/Team. Follow up as scheduled or sooner if necessary. Follow up with PCP and/or other specialists as advised. NEXT STEP: Consider MAT as needed. 04/07/2024 Opioid use disorder (ICD-10 - F11.99) 03/31/2024 Opioid use disorder (ICD-10 - F11.99) Duration (acute/chronic), stability (controlled/uncontrol led): Previous problem, pain medications through pain management, well controlled on Suboxone Current medications/efficacy: Yes Previous FAILED medication trials: N/A Examination as documented - see pertinent aspects of office visit documentation. RECOMMENDATIONS: Continue/modify medications as prescribed - educated patient/guardian on adverse effects, risks and benefits, as well as alternative treatments Consume well balanced diet, preferably low in saturated fats (solid at room temperature, such as butter, margarine, Crisco, etc) and low in sodium (<2,000mg per day). Consume plenty of fruits/vegetables, healthy grains/whole grains, unsaturated/healthy fats (liquid at room temperature, such as olive oil, sunflower seed oil, canola, vegetable, etc.). Exercise regularly - Develop an exercise routine. 30 minutes of moderate exercise (walking at a brisk pace) 5 times per week is recommended. You should work hard enough to cause a sweat but still be able to talk with others while exercising. Exercise improves overall health - improves blood pressure and blood sugar, helps control weight, reduces stress, and improves mood. Practice stress reduction techniques, such as guided imagery, journaling, aromatherapy, acupuncture/acupressu re, deep breathing, etc. Practice healthy sleep hygiene - maintain regular routine, no caffeine after 1PM, no exercise 1-2 hours prior to bedtime, keep bedroom dark and cool, no TV or electronics while in bed. Consider melatonin as needed. Consider cognitive behavioral therapy for insomnia (CBT-I). Consider/Continue therapy. Consider substance cessation therapy as needed - contact office if desiring medication assisted therapy. Manage co-morbid conditions. Continue monitoring symptoms - report persistent or worsening/concerning symptoms to the office or go to the ER. For mental health CRISIS, please reach out to [phone] ([employer] Suicide and Crisis Lifeline), 911, go to the emergency department, or contact the [facility] Crisis Unit/Team. Follow up as scheduled or sooner if necessary. Follow up with PCP and/or other specialists as advised. NEXT STEP: 02/18/2024 Nicotine dependence, unspecified, uncomplicated (ICD-10 - F17.200) Duration (acute/chronic), stability (controlled/uncontrol led): Chronic, patient not currently taking medications for this Current medications/efficacy: N/A Previous FAILED medication trials: N/A Examination as documented - see pertinent aspects of office visit documentation. RECOMMENDATIONS: Consider substance cessation therapy as needed - contact office if desiring medication assisted therapy. Manage co-morbid conditions. Continue monitoring symptoms - report persistent or worsening/concerning symptoms to the office or go to the ER. For mental health CRISIS, please reach out to [phone] ([employer] [facility]icide and Crisis [facility]), 911, go to the emergency department, or contact the [facility] Crisis Unit/Team. Follow up as scheduled or sooner if necessary. Follow up with PCP and/or other specialists as advised. 01/19/2024 Substance use disorder (ICD-10 - F19.90) Continue with MAT services Recommend NA 12/23/2023 Substance use disorder (ICD-10 - F19.90) Continue with MAT services Recommend NA 03/31/2024 Nicotine dependence, unspecified, uncomplicated (ICD-10 - F17.200) Duration (acute/chronic), stability (controlled/uncontrol led): Chronic, vapes daily, patient not currently taking medications for this Current medications/efficacy: N/A Previous FAILED medication trials: N/A Examination as documented - see pertinent aspects of office visit documentation. RECOMMENDATIONS: Consider substance cessation therapy as needed - contact office if desiring medication assisted therapy. Manage co-morbid conditions. Continue monitoring symptoms - report persistent or worsening/concerning symptoms to the office or go to the ER. For mental health CRISIS, please reach out to [phone] ([place] Suicide and Crisis Lifeline), 911, go to the emergency department, or contact the [facility] Crisis Unit/Team. Follow up as scheduled or sooner if necessary. Follow up with PCP and/or other specialists as advised. NEXT STEP: Consider MAT as needed. 04/07/2024 Nicotine dependence, unspecified, uncomplicated (ICD-10 - F17.200) 05/18/2024 Opioid use disorder (ICD-10 - F11.99) Duration (acute/chronic), stability (controlled/uncontrol led): Previous problem, pain medications through pain management, well controlled on Suboxone Current medications/efficacy: Yes Previous FAILED medication trials: N/A Examination as documented - see pertinent aspects of office visit documentation. RECOMMENDATIONS: Continue/modify medications as prescribed - educated patient/guardian on adverse effects, risks and benefits, as well as alternative treatments Consume well balanced diet, preferably low in saturated fats (solid at room temperature, such as butter, margarine, Crisco, etc) and low in sodium (<2,000mg per day). Consume plenty of fruits/vegetables, healthy grains/whole grains, unsaturated/healthy fats (liquid at room temperature, such as olive oil, sunflower seed oil, canola, vegetable, etc.). Exercise regularly - Develop an exercise routine. 30 minutes of moderate exercise (walking at a brisk pace) 5 times per week is recommended. You should work hard enough to cause a sweat but still be able to talk with others while exercising. Exercise improves overall health - improves blood pressure and blood sugar, helps control weight, reduces stress, and improves mood. Practice stress reduction techniques, such as guided imagery, journaling, aromatherapy, acupuncture/acupressu re, deep breathing, etc. Practice healthy sleep hygiene - maintain regular routine, no caffeine after 1PM, no exercise 1-2 hours prior to bedtime, keep bedroom dark and cool, no TV or electronics while in bed. Consider melatonin as needed. Consider cognitive behavioral therapy for insomnia (CBT-I). Consider/Continue therapy. Consider substance cessation therapy as needed - contact office if desiring medication assisted therapy. Manage co-morbid conditions. Continue monitoring symptoms - report persistent or worsening/concerning symptoms to the office or go to the ER. For mental health CRISIS, please reach out to [phone] ([employer] [facility]icide [facility] Crisis [facility]), 911, go to the emergency department, or contact the [facility] Crisis Unit/Team. Follow up as scheduled or sooner if necessary. Follow up with PCP and/or other specialists as advised. NEXT STEP: 04/27/2024 Opioid use disorder (ICD-10 - F11.99) Duration (acute/chronic), stability (controlled/uncontrol led): Previous problem, pain medications through pain management, well controlled on Suboxone Current medications/efficacy: Yes Previous FAILED medication trials: N/A Examination as documented - see pertinent aspects of office visit documentation. RECOMMENDATIONS: Continue/modify medications as prescribed - educated patient/guardian on adverse effects, risks and benefits, as well as alternative treatments Consume well balanced diet, preferably low in saturated fats (solid at room temperature, such as butter, margarine, Crisco, etc) and low in sodium (<2,000mg per day). Consume plenty of fruits/vegetables, healthy grains/whole grains, unsaturated/healthy fats (liquid at room temperature, such as olive oil, sunflower seed oil, canola, vegetable, etc.). Exercise regularly - Develop an exercise routine. 30 minutes of moderate exercise (walking at a brisk pace) 5 times per week is recommended. You should work hard enough to cause a sweat but still be able to talk with others while exercising. Exercise improves overall health - improves blood pressure and blood sugar, helps control weight, reduces stress, and improves mood. Practice stress reduction techniques, such as guided imagery, journaling, aromatherapy, acupuncture/acupressu re, deep breathing, etc. Practice healthy sleep hygiene - maintain regular routine, no caffeine after 1PM, no exercise 1-2 hours prior to bedtime, keep bedroom dark and cool, no TV or electronics while in bed. Consider melatonin as needed. Consider cognitive behavioral therapy for insomnia (CBT-I). Consider/Continue therapy. Consider substance cessation therapy as needed - contact office if desiring medication assisted therapy. Manage co-morbid conditions. Continue monitoring symptoms - report persistent or worsening/concerning symptoms to the office or go to the ER. For mental health CRISIS, please reach out to [phone] ([facility] [facility]), 911, go to the emergency department, or contact the [facility] Crisis Unit/Team. Follow up as scheduled or sooner if necessary. Follow up with PCP and/or other specialists as advised. NEXT STEP: 06/17/2024 Opioid use disorder (ICD-10 - F11.99) Duration (acute/chronic), stability (controlled/uncontrol led): Previous problem, pain medications through pain management, well controlled on Suboxone Current medications/efficacy: Yes Previous FAILED medication trials: N/A Examination as documented - see pertinent aspects of office visit documentation. RECOMMENDATIONS: Continue/modify medications as prescribed - educated patient/guardian on adverse effects, risks and benefits, as well as alternative treatments Consume well balanced diet, preferably low in saturated fats (solid at room temperature, such as butter, margarine, Crisco, etc) and low in sodium (<2,000mg per day). Consume plenty of fruits/vegetables, healthy grains/whole grains, unsaturated/healthy fats (liquid at room temperature, such as olive oil, sunflower seed oil, canola, vegetable, etc.). Exercise regularly - Develop an exercise routine. 30 minutes of moderate exercise (walking at a brisk pace) 5 times per week is recommended. You should work hard enough to cause a sweat but still be able to talk with others while exercising. Exercise improves overall health - improves blood pressure and blood sugar, helps control weight, reduces stress, and improves mood. Practice stress reduction techniques, such as guided imagery, journaling, aromatherapy, acupuncture/acupressu re, deep breathing, etc. Practice healthy sleep hygiene - maintain regular routine, no caffeine after 1PM, no exercise 1-2 hours prior to bedtime, keep bedroom dark and cool, no TV or electronics while in bed. Consider melatonin as needed. Consider cognitive behavioral therapy for insomnia (CBT-I). Consider/Continue therapy. Consider substance cessation therapy as needed - contact office if desiring medication assisted therapy. Manage co-morbid conditions. Continue monitoring symptoms - report persistent or worsening/concerning symptoms to the office or go to the ER. For mental health CRISIS, please reach out to [phone] ([facility] [facility]), 911, go to the emergency department, or contact the [facility] Crisis Unit/Team. Follow up as scheduled or sooner if necessary. Follow up with PCP and/or other specialists as advised. NEXT STEP: Will plan to have MAT clinic continue treatment for this 08/11/2024 Opioid use disorder (ICD-10 - F11.99) Duration (acute/chronic), stability (controlled/uncontrol led): Previous problem, pain medications through pain management, well controlled on Suboxone Current medications/efficacy: Yes Previous FAILED medication trials: N/A Examination as documented - see pertinent aspects of office visit documentation. RECOMMENDATIONS: Continue/modify medications as prescribed - educated patient/guardian on adverse effects, risks and benefits, as well as alternative treatments Consume well balanced diet, preferably low in saturated fats (solid at room temperature, such as butter, margarine, Crisco, etc) and low in sodium (<2,000mg per day). Consume plenty of fruits/vegetables, healthy grains/whole grains, unsaturated/healthy fats (liquid at room temperature, such as olive oil, sunflower seed oil, canola, vegetable, etc.). Exercise regularly - Develop an exercise routine. 30 minutes of moderate exercise (walking at a brisk pace) 5 times per week is recommended. You should work hard enough to cause a sweat but still be able to talk with others while exercising. Exercise improves overall health - improves blood pressure and blood sugar, helps control weight, reduces stress, and improves mood. Practice stress reduction techniques, such as guided imagery, journaling, aromatherapy, acupuncture/acupressu re, deep breathing, etc. Practice healthy sleep hygiene - maintain regular routine, no caffeine after 1PM, no exercise 1-2 hours prior to bedtime, keep bedroom dark and cool, no TV or electronics while in bed. Consider melatonin as needed. Consider cognitive behavioral therapy for insomnia (CBT-I). Consider/Continue therapy. Consider substance cessation therapy as needed - contact office if desiring medication assisted therapy. Manage co-morbid conditions. Continue monitoring symptoms - report persistent or worsening/concerning symptoms to the office or go to the ER. For mental health CRISIS, please reach out to [phone] ([facility] [facility]), 911, go to the emergency department, or contact the [facility] Crisis Unit/Team. Follow up as scheduled or sooner if necessary. Follow up with PCP and/or other specialists as advised. NEXT STEP: Will plan to have MAT clinic continue treatment for this 07/15/2024 Opioid use disorder (ICD-10 - F11.99) Duration (acute/chronic), stability (controlled/uncontrol led): Previous problem, pain medications through pain management, well controlled on Suboxone Current medications/efficacy: Yes Previous FAILED medication trials: N/A Examination as documented - see pertinent aspects of office visit documentation. RECOMMENDATIONS: Continue/modify medications as prescribed - educated patient/guardian on adverse effects, risks and benefits, as well as alternative treatments Consume well balanced diet, preferably low in saturated fats (solid at room temperature, such as butter, margarine, Crisco, etc) and low in sodium (<2,000mg per day). Consume plenty of fruits/vegetables, healthy grains/whole grains, unsaturated/healthy fats (liquid at room temperature, such as olive oil, sunflower seed oil, canola, vegetable, etc.). Exercise regularly - Develop an exercise routine. 30 minutes of moderate exercise (walking at a brisk pace) 5 times per week is recommended. You should work hard enough to cause a sweat but still be able to talk with others while exercising. Exercise improves overall health - improves blood pressure and blood sugar, helps control weight, reduces stress, and improves mood. Practice stress reduction techniques, such as guided imagery, journaling, aromatherapy, acupuncture/acupressu re, deep breathing, etc. Practice healthy sleep hygiene - maintain regular routine, no caffeine after 1PM, no exercise 1-2 hours prior to bedtime, keep bedroom dark and cool, no TV or electronics while in bed. Consider melatonin as needed. Consider cognitive behavioral therapy for insomnia (CBT-I). Consider/Continue therapy. Consider substance cessation therapy as needed - contact office if desiring medication assisted therapy. Manage co-morbid conditions. Continue monitoring symptoms - report persistent or worsening/concerning symptoms to the office or go to the ER. For mental health CRISIS, please reach out to [phone] ([place] Suicide and Crisis Lifeline), 911, go to the emergency department, or contact the [facility] Crisis Unit/Team. Follow up as scheduled or sooner if necessary. Follow up with PCP and/or other specialists as advised. NEXT STEP: Will plan to have MAT clinic continue treatment for this 08/11/2024 Nicotine dependence, unspecified, uncomplicated (ICD-10 - F17.200) Duration (acute/chronic), stability (controlled/uncontrol led): Chronic, vapes daily, patient not currently taking medications for this Current medications/efficacy: N/A Previous FAILED medication trials: N/A Examination as documented - see pertinent aspects of office visit documentation. RECOMMENDATIONS: Consider substance cessation therapy as needed - contact office if desiring medication assisted therapy. Manage co-morbid conditions. Continue monitoring symptoms - report persistent or worsening/concerning symptoms to the office or go to the ER. For mental health CRISIS, please reach out to [phone] ([place] [facility]icide and Crisis Lif[facility]), 911, go to the emergency department, or contact the [facility] Crisis Unit/Team. Follow up as scheduled or sooner if necessary. Follow up with PCP and/or other specialists as advised. NEXT STEP: Consider MAT as needed. 07/15/2024 Nicotine dependence, unspecified, uncomplicated (ICD-10 - F17.200) Duration (acute/chronic), stability (controlled/uncontrol led): Chronic, vapes daily, patient not currently taking medications for this Current medications/efficacy: N/A Previous FAILED medication trials: N/A Examination as documented - see pertinent aspects of office visit documentation. RECOMMENDATIONS: Consider substance cessation therapy as needed - contact office if desiring medication assisted therapy. Manage co-morbid conditions. Continue monitoring symptoms - report persistent or worsening/concerning symptoms to the office or go to the ER. For mental health CRISIS, please reach out to [phone] ([place] [facility]icide and Crisis Lif[facility]), 911, go to the emergency department, or contact the [facility]/Team. Follow up as scheduled or sooner if necessary. Follow up with PCP and/or other specialists as advised. NEXT STEP: Consider MAT as needed. 05/18/2024 Nicotine dependence, unspecified, uncomplicated (ICD-10 - F17.200) Duration (acute/chronic), stability (controlled/uncontrol led): Chronic, vapes daily, patient not currently taking medications for this Current medications/efficacy: N/A Previous FAILED medication trials: N/A Examination as documented - see pertinent aspects of office visit documentation. RECOMMENDATIONS: Consider substance cessation therapy as needed - contact office if desiring medication assisted therapy. Manage co-morbid conditions. Continue monitoring symptoms - report persistent or worsening/concerning symptoms to the office or go to the ER. For mental health CRISIS, please reach out to [phone] ([place] [facility]icide and Crisis Lif[facility]), 911, go to the emergency department, or contact the [facility]/Team. Follow up as scheduled or sooner if necessary. Follow up with PCP and/or other specialists as advised. NEXT STEP: Consider MAT as needed. 04/27/2024 Nicotine dependence, unspecified, uncomplicated (ICD-10 - F17.200) Duration (acute/chronic), stability (controlled/uncontrol led): Chronic, vapes daily, patient not currently taking medications for this Current medications/efficacy: N/A Previous FAILED medication trials: N/A Examination as documented - see pertinent aspects of office visit documentation. RECOMMENDATIONS: Consider substance cessation therapy as needed - contact office if desiring medication assisted therapy. Manage co-morbid conditions. Continue monitoring symptoms - report persistent or worsening/concerning symptoms to the office or go to the ER. For mental health CRISIS, please reach out to [phone] ([place] [facility]icide and Crisis Lif[facility]), 911, go to the emergency department, or contact the [facility]/Team. Follow up as scheduled or sooner if necessary. Follow up with PCP and/or other specialists as advised. NEXT STEP: Consider MAT as needed. 06/17/2024 Nicotine dependence, unspecified, uncomplicated (ICD-10 - F17.200) Duration (acute/chronic), stability (controlled/uncontrol led): Chronic, vapes daily, patient not currently taking medications for this Current medications/efficacy: N/A Previous FAILED medication trials: N/A Examination as documented - see pertinent aspects of office visit documentation. RECOMMENDATIONS: Consider substance cessation therapy as needed - contact office if desiring medication assisted therapy. Manage co-morbid conditions. Continue monitoring symptoms - report persistent or worsening/concerning symptoms to the office or go to the ER. For mental health CRISIS, please reach out to [phone] ([place] [facility]icide [facility]), 911, go to the emergency department, or contact the [facility] Crisis Unit/Team. Follow up as scheduled or sooner if necessary. Follow up with PCP and/or other specialists as advised. NEXT STEP: Consider MAT as needed. 12/01/2023 Other Patient was edu cated on diagnosis and symptoms. Discussed the treatment plan, patient is agreeable and accepting of treatment plan. Patient denies further questions or concerns currently. Discussed sleep hygiene and caffeine intake. Encouraged to improve diet, get regular exercise, daily relaxation, and work on managing stress levels.Return to clinic when detox program is complete.Obtain lab work at next visit. Encouraged counseling.The Patient/Guardian is aware of the need to contact the office or return for an earlier appointment if any problems or concerns arise. May also contact the 24-hour crisis hotline ([facility]), refer to the closest emergency room or call 911 if new symptoms arise of existing symptoms worsen; the Patient/Guardian is aware that this would apply to symptoms such as: suicidal ideation, homicidal ideation, high risk behaviors, manic symptoms, psychotic symptoms, physical symptoms, or any other symptoms that may be dangerous to self or others.Greater than 50% of time spent on coordination and counseling where psychopharmacology as well as psychotherapeutic interventions were discussed along with review of treatments in the past.Patient/Guardian was educated about treatments including benefits and risks, alternatives, potential medication side effects, black box warning, and risks of failure if not treated. The Patient/Guardian asked appropriate questions, appeared to understand the answers, and decided to accept the treatment and continue being followed.Discussed the importance of compliance with medications due to the risk of relapse of symptoms.Discussed the risks of taking psychotropic medication when combined with substance use/abuse and/or drinking alcohol. 12/09/2023 Other Client agrees to take medication as prescribed. Discussed medication side effects, adverse effects, risks, benefits, as well as interactions. Encouraged non-use of opioids and other illicit substances. Has naloxone. Understand that discontinuing buprenorphine increases the risk of overdose upon return to illicit opioid use. Know that that use of alcohol or benzodiazepines with buprenorphine increases the risk of overdose and . Education provided about safe storage of medications. Encourage participation in recovery groups/counseling services. Contact office with questions or concerns. 12/09/2023 Other Provided case management services to address social determinants of health needs and reduce barriers to health care services. 12/15/2023 Other ARIK SIGNED FOR LAB FROM DR. RUTHERFORD 12/15/2023 Other Provided case management services to address social determinants of health needs and reduce barriers to health care services. 12/23/2023 Other Patient was edu cated on diagnosis and symptoms. Discussed the treatment plan, patient is agreeable and accepting of treatment plan. Patient denies further questions or concerns currently. Discussed sleep hygiene and caffeine intake. Encouraged to improve diet, get regular exercise, daily relaxation, and work on managing stress levels.Return to clinic 4 weeks.Obtain lab work at next visit. Encouraged counseling.The Patient/Guardian is aware of the need to contact the office or return for an earlier appointment if any problems or concerns arise. May also contact the 24-hour crisis hotline ([facility]), refer to the closest emergency room or call 911 if new symptoms arise of existing symptoms worsen; the Patient/Guardian is aware that this would apply to symptoms such as: suicidal ideation, homicidal ideation, high risk behaviors, manic symptoms, psychotic symptoms, physical symptoms, or any other symptoms that may be dangerous to self or others.Greater than 50% of time spent on coordination and counseling where psychopharmacology as well as psychotherapeutic interventions were discussed along with review of treatments in the past.Patient/Guardian was educated about treatments including benefits and risks, alternatives, potential medication side effects, black box warning, and risks of failure if not treated. The Patient/Guardian asked appropriate questions, appeared to understand the answers, and decided to accept the treatment and continue being followed.Discussed the importance of compliance with medications due to the risk of relapse of symptoms.Discussed the risks of taking psychotropic medication when combined with substance use/abuse and/or drinking alcohol. 01/13/2024 Other DISCUSSED RISK OF CENTRAL SLEEP APNEA AND WITH MIX OF SUBOXONE AND BENZO'S Client agrees to take medication as prescribed. Discussed medication side effects, adverse effects, risks, benefits, as well as interactions. Encouraged non-use of opioids and other illicit substances. Has naloxone. Understand that discontinuing buprenorphine increases the risk of overdose upon return to illicit opioid use. Know that that use of alcohol or benzodiazepines with buprenorphine increases the risk of overdose and . Education provided about safe storage of medications. Encourage participation in recovery groups/counseling services. Patient understands that all treating providers/physicians should be informed of buprenorphine use as part of a Medication Assisted Recovery program. Contact office with questions or concerns. 01/13/2024 Other Provided case management services to address social determinants of health needs and reduce barriers to health care services. 01/19/2024 Other Patient was edu cated on diagnosis and symptoms. Discussed the treatment plan, patient is agreeable and accepting of treatment plan. Patient denies further questions or concerns currently. Discussed sleep hygiene and caffeine intake. Encouraged to improve diet, get regular exercise, daily relaxation, and work on managing stress levels.Return to clinic 4 weeks.Had recent labs at [facility] in 4Continue with therapy.The Patient/Guardian is aware of the need to contact the office or return for an earlier appointment if any problems or concerns arise. May also contact the 24-hour crisis hotline ([facility]), refer to the closest emergency room or call 911 if new symptoms arise of existing symptoms worsen; the Patient/Guardian is aware that this would apply to symptoms such as: suicidal ideation, homicidal ideation, high risk behaviors, manic symptoms, psychotic symptoms, physical symptoms, or any other symptoms that may be dangerous to self or others.Greater than 50% of time spent on coordination and counseling where psychopharmacology as well as psychotherapeutic interventions were discussed along with review of treatments in the past.Patient/Guardian was educated about treatments including benefits and risks, alternatives, potential medication side effects, black box warning, and risks of failure if not treated. The Patient/Guardian asked appropriate questions, appeared to understand the answers, and decided to accept the treatment and continue being followed.Discussed the importance of compliance with medications due to the risk of relapse of symptoms.Discussed the risks of taking psychotropic medication when combined with substance use/abuse and/or drinking alcohol. 02/12/2024 Other Client agrees to take medication as prescribed. Discussed medication side effects, adverse effects, risks, benefits, as well as interactions. Encouraged non-use of opioids and other illicit substances. Has naloxone. Understand that discontinuing buprenorphine increases the risk of overdose upon return to illicit opioid use. Know that that use of alcohol or benzodiazepines with buprenorphine increases the risk of overdose and . Education provided about safe storage of medications. Encourage participation in recovery groups/counseling services. Patient understands that all treating providers should be informed of buprenorphine use as part of a Medication Assisted Recovery program. Contact office with questions or concerns. 03/12/2024 Other Patient agrees to take medication as prescribed. Discussed medication side effects, adverse effects, risks, benefits, as well as interactions. Encouraged non-use of opioids. Has naloxone. Recommended participation in recovery groups and/or counseling services. May contact office with questions or concerns. 04/13/2024 Other Patient agrees to take medication as prescribed. Discussed medication side effects, adverse effects, risks, benefits, as well as interactions. Encouraged non-use of opioids. Encouraged participation in recovery groups. Patient may contact office with questions or concerns. 05/12/2024 Other Discussed increased risk of central sleep apnea and with combination of benzos and opioids. Patient agrees to take medication as prescribed. Discussed medication side effects, adverse effects, risks, benefits, as well as interactions. Encouraged non-use of opioids and other illicit substances. Has naloxone. Discontinuing buprenorphine increases the risk of overdose upon return to illicit opioid use. Use of alcohol or benzodiazepines with buprenorphine increases the risk of overdose and . Education provided about safe storage of medications. Encouraged participation in recovery groups/counseling services. Contact office with questions or concerns. 06/15/2024 Other Potential side effects of buprenorphine discussed, as well as taking buprenorphine as prescribed. Dangers of using other controlled substances (prescribed or illegal/including benzodiazepines) with buprenorphine discussed. Patient understands taking other narcotics with buprenorphine could lead to respiratory distress and even . Patient understands that ALL treating providers/physicians should be informed of buprenorphine use as part of a Medication Assisted Treatment program 07/19/2024 Other Discussed increased risk of central sleep apnea with combination of buprenorphine and benzodiazepines. Avoid taking medications at the same time. agrees to take medication as prescribed. Discussed medication side effects, adverse effects, risks, benefits, as well as interactions. Encouraged non-use of opioids and other illicit substances. Has naloxone. Discontinuing buprenorphine increases the risk of overdose upon return to illicit opioid use. Use of alcohol or benzodiazepines with buprenorphine increases the risk of overdose and . Education provided about safe storage of medications. Encouraged participation in recovery groups/counseling services. Contact office with questions or concerns. 08/19/2024 Other Patient agrees to take medication as prescribed. Discussed medication side effects, adverse effects, risks, benefits, as well as interactions. Encouraged non-use of opioids and other illicit substances. Has naloxone. Discontinuing buprenorphine increases the risk of overdose upon return to illicit opioid use. Use of alcohol or benzodiazepines with buprenorphine increases the risk of overdose and . Education provided about safe storage of medications. Encouraged participation in recovery groups/counseling services. Contact office with questions or concerns. Patient may self-administe r their own medications or may self-administe r their own oral medications per [place] Protocol. Plan Of Treatment No Information Insurance Providers Payer Name Payer Address Payer Phone Subscriber Number Group Number Insured Name Patient Relationship to Insured Coverage Start Date Coverage End Date [employer] [facility] Claims Department [address] [place] [address] [phone] [id number] Alba Olvera Self - patient is the insured 3 [employer] [facility] Claims Department [address] [place] [address] [phone] [id number] Alba Olvera Self - patient is the insured 3 Medical (General) History Medical History History ICD Code scoliosis CARD FEEDER shunt Idiopathic Intracranial HTN Chronic Back Pain Migraines Alcohol Use Disorder Substance use disorder (mainly opioids Surgical History Surgery Date(Month/Year) x 2 brain surgery x 2 D and C-several REMOVAL OF RESIDUAL CERVIX 05/20 Hospitalization History Reason Date(Month/Year) [facility] for detox off pain meds and alcohol. 12/05/2023-12/08/2023 12/05/2023 [facility] 06/08/23-06/10/23 child mental illness 2020 see fareed
== END 2024-10-11 13:19 | disposition home or self-care (01) ==
LOC: ANHIMG 13:19
PROVIDERS: PCP Nurse Practitioner Family; Visit Provider Obstetrics & Gynecology
DX: N63.21 Unspecified lump in the left breast, upper outer quadrant (principal)
CPT/HCPCS: 76642; 77062; 77066; G0279

== ENCOUNTER 2024-11-24 12:17 | Outpatient (CLI) | payer OTHER, SELFPAY ==
--- NOTE | ~2024-11-24 | US_ITS ---
Left axillary ultrasound CLINICAL HISTORY: Mass TECHNIQUE: Sonographic imaging of the left axilla was performed. FINDINGS: Morphologically normal lymph nodes are present in the left axilla, reniform shape and fatty claudio. No overtly suspicious or pathologic lymph nodes seen. IMPRESSION: Morphologically normal lymph nodes in the left axilla. Reviewed, dictated and finalized at [facility].
== END 2024-11-24 12:18 | disposition home or self-care (01) ==
LOC: ANHIMG 12:18
PROVIDERS: PCP Nurse Practitioner Family; Visit Provider Surgery
DX: R22.32 Localized swelling, mass and lump, left upper limb (principal)
CPT/HCPCS: 76882

== ENCOUNTER 2024-11-29 15:13 | Outpatient (CLI) | payer OTHER, SELFPAY ==
--- NOTE | ~2024-11-29 | XR_ITS ---
XR abdomen/kub 1V Ordering provider: Viktoria Medeiros APRN History: . K59.09 - Other constipation, CHRONIC LEFT SIDED PAIN, . Comparison: None. FINDINGS: BOWEL: Nonobstructive bowel gas pattern. ORGANOMEGALY: None. SIGNIFICANT PATHOLOGIC CALCIFICATIONS: None. OTHER: No free air is seen under the diaphragm. OFFICE SUPPORT shunt is seen with the tip in the pelvis. IMPRESSION: NO ACUTE ABDOMINAL FINDINGS. Reviewed, dictated and finalized at location A.
--- OUTSIDE RECORDS SUMMARY | 2024-11-29 15:17 | XMS_ITS | Patient Health Record ---
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 Role Phone Bean Haro Primary Care Provider Sherman Cabrera Unavailable [phone] David Manzo Unavailable [phone] Trent Haines Unavailable [phone] Carley Wiley Unavailable [phone] Nasra Jean Unavailable [phone] Jessi Fournier Unavailable [phone] Guerline Cooper Unavailable [phone] Allergies Allergen (clinical drug ingredient) Drug/Non Drug Allergy documented on EMR Reaction Allergy Type Onset Date Status No Known Drug Allergy Unknown Drug Allergy Active Results Component Value Reference Range Notes 12 Panel Urine Drug Screen Reviewed date:08/19/2024 [...] test) Reviewed date:01/19/2024 11:57:51 AM Interpretation: Performing Lab:[facility], [address] [facility], [facility], Phone - [phone], Director - PhDA[facility]u Notes/Report: Clinical Information:[id number] Buprenorphine Positive Confirmation p erformed by Mass Spectrometry Buprenorphine Positive Buprenorphine Conf, MS, UR 44 Cutoff=10 ng/m L Norbuprenorphine Positive Norbuprenorphine Conf, MS, UR 175 Cutoff=10 n g/mL 12 Panel Urine Drug Screen Reviewed date:02/12/2024 [...] neg OXY ng PCP neg BUP POS 12 Panel Urine Drug Screen Reviewed date:03/12/2024 09:13:18 AM Interpretation: Performing Lab: Notes/Report: THC neg FELICITA neg MOP (OPI) neg AMP neg MET neg BAR neg BZO POS MDMA neg MTD neg OXY neg PCP neg BUP POS Hemoglobin A1c* Reviewed date:04/08/2024 12:43:18 PM Interpretation: Performing Lab:[facility], [address] [facility], Phone - [phone], [facility] Notes/Report: Hemoglobin A1c 5.1 4.8-5.6 % . Prediabetes: 5.7 - 6.4 Diabetes: >6.4 Glycemic control for adults with diabetes: <7.0 Vitamin B12* Reviewed date:04/08/2024 12:42:49 PM Interpretation: Performing Lab:[facility], [address], Phone - [phone], Director - [facility] Notes/Report: Vitamin B12 [phone] pg/mL Folate (Folic Acid), Serum* Reviewed date:04/08/2024 12:43:24 PM Interpretation: Performing Lab:[address], Phone - [phone], Director - [facility] Notes/Report: Folate (Folic Acid), Serum 5.6 >3.0 ng/mL A serum folate concentration of less than 3.1 ng/mL is considered to represent clinical deficiency. CBC With Differential/Platel et* Reviewed date:04/08/2024 12:44:36 PM Interpretation: Performing Lab:[facility], [address] [facility], Phone - [phone], Director - [facility] Notes/Report: WBC 4.0 3.4-10.8 x10E3/uL RBC 3.96 [...] % Immature Grans (Abs) 0.0 0.0-0.1 x10E3/uL Vitamin D, 25-Hydroxy* Reviewed date:04/08/2024 12:42:40 PM Interpretation: Performing Lab:[facility], [address] [facility], Phone - [phone], Director - [facility] Notes/Report: Vitamin D, 25-Hydroxy 71.8 30.0-100.0 ng/mL Vitamin D deficiency has been defined by the [place] of [employer] and an Endocrine Society practice guideline as a level of serum 25-OH vitamin D less than 20 ng/mL (1,2). The Endocrine Society went on to further define vitamin D insufficiency as a level between 21 and 29 ng/mL (2). 1. IOM ([place] [employer]). 2010. Dietary reference intakes for calcium and D. [place]: The National Academies Press. 2. Nikia MF, Lauri ARMIJO, Glen LOPEZ, et al. Evaluation, treatment, and prevention of vitamin D deficiency: an Endocrine Society clinical practice guideline. JCEM. 2010; 96(7):1911-30. TSH+Free T4* Reviewed date:04/08/2024 12:42:55 PM Interpretation: Performing Lab:[facility] [address] [place] [address], Phone - [phone], Director - [facility] Notes/Report: TSH 0.841 0.450-4.500 uIU/mL T4,Free(Direct) 1.04 0.82-1.77 ng/dL Lipid Panel* Reviewed date:04/08/2024 12:43:12 PM Interpretation: Performing Lab:[facility] [address] [place] [address], Phone - [phone], Director - [facility] Notes/Report: Cholesterol, Total 139 100-199 mg/dL Triglycerides 81 0-149 mg/dL HDL Cholesterol 46 >39 mg/dL VLDL Cholesterol Brayden 16 5-40 mg/dL LDL Chol Calc (NIH) 77 0-99 mg/dL CMP 14 Comprehensive Metabol ic Panel* Reviewed date:04/08/2024 12:43:46 PM Interpretation: Performing Lab:[facility], Phone - [phone], Director - [facility] Notes/Report: Glucose 82 70-99 mg/dL BUN 9 [...] 0-40 IU/L ALT (SGPT) 9 0-32 IU/L 12 Panel Urine Drug Screen Reviewed date:04/13/2024 10:04:01 AM Interpretation: Performing Lab: Notes/Report: THC neg FELICITA neg MOP (OPI) neg AMP neg MET neg BAR neg BZO POS MDMA neg MTD neg OXY neg PCP neg BUP POS Buprenorphine and Metabolite (Urine test) Reviewed date:06/22/2024 07:46:45 PM Interpretation: Performing Lab:[facility], [address], [facility], Phone - [phone], Director - [facility] Notes/Report: Clinical Information:[id number] Buprenorphine Positive Confirmation p erformed by Mass [...] neg OXY neg PCP neg BUP POS Written Authorization Reviewed date:01/19/2024 11:57:12 AM Interpretation: Performing Lab:[facility], [address], [place], Phone - [phone], Director - [facility] Notes/Report: Clinical Information:[id number] Written Authorization Written Authorization Received. Authorization received from PER ORIGINAL ORDER 01-14-2024 Logged by Humberto Hendricks Reason For Referral Reason Would you please pro vide patient with information on local DBT resources and/or refer patient to DBT specialist? I suspect patient has borderline personality disorder, and patient reports previous improvement with this therapy modality. Thanks! Diagnosis 1 Bipolar II disorder (F31.81) Diagnosis 2 Trauma and stressor- related disorder (F43.9) Diagnosis 3 Cluster B personalit y disorder (F60.89) Referral Organization [facility] Referring Provider First Name Sherman Referring Provider Last Name Cabrera Referring Provider Speciality Psychiatry Referred Provider [facility]ty [facility] Clinical Notes Kimber Roldan 02/25/2024 02:30:06 PM [...] 20 MG 1 tablet Orally Once a day; Duration: 30 days Active lamoTRIgine 200 MG 1 tablet Orally Twic e a day; Duration: 30 days Active Rizatriptan Benzoate 10 MG Oral; Duration: 12 Days Active Promethazine HCl 25 MG Oral; Duration: 10 Days Active tiZANidine HCl 4 MG 1 tablet at bedtime as needed Orally Once a day Active Propranolol HCl ER 80 MG 1 capsule Orall y Once a day; Duration: 30 days Active Eszopiclone 2 MG 1 tablet Orally once daily at bedtime as needed for sleep 08/11/2024 Active busPIRone HCl 30 MG 1.5 tablets (45mg) t wice daily Orally Active ALPRAZolam 1 MG 0.5 tablet in the AM, 0.5-1 tablet in the afternoon, and 0.25-5 tablet in the evening Oral; Duration: 30 days As needed for anxiety 08/20/2024 Active Caplyta 42 MG 1 capsule Orally Onc e a day; Duration: 30 days Active Doxazosin Mesylate 4 MG 1 tablet Oral on ce daily at bedtime for PTSD/nightmares; Duration: 30 days Active Social History Tobacco Use: [...] 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 Stress is when someone feels tense, nervous, anxious, or can\t sleep at night because their mind is troubled Somewhat In the past year have you sp ent more than 2 nights in a row in a nursing home, senior living, usp center, or juvenile correctional facility? No Are [...] [facility] REFILL NO. REFILLS STATE PATIENT [id number] 10/03/2023 08/04/2023 ALPRAZolam 90.0 30 1 MG NA Socorro Patel L, (Md) - [id number] [place], [place] [id number] 09/22/2023 09/15/2023 Morphine Sulfate 30.0 30 15 MG 15 Socorro Patel L, (Md) - [id number] [facility] [place] [id number] 09/17/2023 09/15/2023 ACETAMINOPHEN 325 MG / oxyCODONE HYDROCHLORIDE 10 MG ORAL TABLET 90.0 30 10.0 MG/325.0 MG 45 Socorro Patel L, (Md) - [id number] [place] [id number] 09/04/2023 08/04/2023 ALPRAZolam 90.0 30 1 MG PRESCRIPTION # FILLED WRITTEN DRUG LABEL QTY DAYS STRENGTH MME [facility] REFILL NO. REFILLS STATE 12/01/2023 11/20/2023 ALPRAZolam 90.0 30 1 MG NA Manuelito Luke [id number] [place] [facility] 1 234392 11/17/2023 11/17/2023 Triazolam 15.0 30 0.125 MG NA Jessi Fournier [facility] - [id number] [place] 1 [address] 11/12/2023 11/12/2023 ALPRAZolam 90.0 30 0.5 M PRESCRIPTION # FILLED WRITTE N DRUG LABEL QTY DAYS STRENGTH MME [facility] REFILL NO. REFILLS STATE PATIENT [id number] 08/22/2023 08/22/2023 ACETAMINOPHEN 325 MG / oxyCODONE HYDROCHLORIDE 10 MG ORAL TABLET 90.0 30 10.0 MG/325.0 MG 45 Socorro Patel L, (Md) - [id number] [facility] [id number] 08/22/2023 08/22/2023 Morphine Sulfate 30.0 30 15 MG 15 Socorro Patel L, (Md) - [id number] [place] [id number] 08/13/2023 08/13/2023 Triazolam 15.0 30 0.125 MG NA Abdiel Christopher [facility]-bc - [id number] [place] [id number] 08/05/2023 08/04/2023 ALPRAZolam 90.0 30 1 MG NA Socorro Patel L, (Md) - [id number] [place], [place] NA 2 [place] [id number] 07/16/2023 07/16/2023 Triazolam 15.0 15 0.125 PRESCRIPTION # FILLED WRITTE N DRUG LABEL QTY DAYS STRENGTH MME [facility] REFILL NO. REFILLS STATE PATIENT [id number] 10/03/2023 08/04/2023 ALPRAZolam 90.0 30 1 MG NA Socorro Patel L, (Md) - [id number] [place], [place] NA 2 [place] [id number] 09/22/2023 09/15/2023 Morphine Sulfate 30.0 30 15 MG 15 Socorro Patel L, (Md) - [id number] [place], [place] NA 0 [place] [id number] 09/17/2023 09/15/2023 ACETAMINOPHEN 325 MG / oxyCODONE HYDROCHLORIDE 10 MG ORAL TABLET 90.0 30 10.0 MG/325.0 MG 45 Socorro Patel L, (Md) - [id number] [place], [place] NA 0 [place] [id number] 09/04/2023 08/04/2023 ALPRAZolam 90.0 30 1 MG PRESCRIPTION # FILLED WRITTEN DRUG LABEL QTY DAYS STRENGTH MME [facility] REFILL NO. REFILLS STATE 12/01/2023 11/20/2023 ALPRAZolam 90.0 30 1 MG NA Manuelito Luke - [id number] [place], [place] NA [place] 1 [id number] 11/17/2023 11/17/2023 Triazolam 15.0 30 0.125 MG NA Jessi Fournierp - [id number] [place], [place] NA 0 [place] 1 332959 11/12/2023 11/12/2023 ALPRAZolam 90.0 30 0.5 M PRESCRIPTION # FILLED WRITTEN DRUG LABEL QTY DAYS STRENGTH MME [facility] REFILL NO. REFILLS STATE 12/01/2023 11/20/2023 ALPRAZolam 90.0 30 1 MG NA Manuelito Luke - [id number] [place] 1 [id number] 11/17/2023 11/17/2023 Triazolam 15.0 30 0.125 MG NA Jessi Fournier [facility] - [id number] [place], [place] 1 [id number] 11/12/2023 11/12/2023 ALPRAZolam 90.0 30 0.5 M PRESCRIPTION # FILLED WRMYNORE N DRUG LABEL QTY DAYS STRENGTH MME [facility] REFILL NO. REFILLS STATE PATIENT [id number] 10/03/2023 08/04/2023 ALPRAZolam 90.0 30 1 MG NA Socorro Patel L, (Md) - [id number] [place], [place] NA 2 [place] [id number] 09/22/2023 09/15/2023 Morphine Sulfate 30.0 30 15 MG 15 Socorro Patel L, (Md) - [id number] [place], [place] 0 [place] [id number] 09/17/2023 09/15/2023 ACETAMINOPHEN 325 MG / oxyCODONE HYDROCHLORIDE 10 MG ORAL TABLET 90.0 30 10.0 MG/325.0 MG 45 Socorro Patel L, (Md) - [id number] [place], [place] 0 [place] [id number] 09/04/2023 08/04/2023 ALPRAZolam 90.0 30 1 MG Problems Problem Type SNOMED Code ICD Code Onset Dates Problem Status W/U Status Risk Notes Problem Tobacco user (696471669) Nicotine dependence, unspecified, uncomplicated (F17.200) Active confirmed Problem Bipolar II disorder (10265272) Bipolar II disorder (F31.81) Active confirmed Problem Alcohol use disorder (6864628252) Alcohol use disorder (F10.99) Active confirmed Problem Adjustment disorder (96697637) Trauma and stressor-related disorder (F43.9) Active confirmed Problem Tobacco use (530869259) Tobacco use disorder (F17.200) Active confirmed Problem Opioid use disorder (1278706991) Opioid use disorder (F11.99) Active confirmed Problem Cluster B personality disorder (6431979) Cluster B personality disorder (F60.89) Active confirmed Vital Signs Heart Rate 91 /min 08/19/2024 Temperature 98.6 degrees Fahrenheit 04/13/2024 Respiratory Rate 16 /min 08/19/2024 Blood pressure diastolic 70 mm Hg 08/19/2024 Oximetry 98 % 08/19/2024 Height 67 in 08/19/2024 Blood pressure systolic 122 mm Hg 08/19/2024 Weight 129 lb 6 oz lbs 08/19/2024 BMI 20.26 kg/m2 08/19/2024 Encounters Encounter Location Date Provider Diagnosis [address] [address] 12/01/2023 Jessi Fournier Bipolar II disorder F31.81 ; Trauma and stressor-related disorder F43.9 ; Alcohol use disorder F10.99 and Substance use disorder F19.[address] [address] 12/09/2023 Guerline Cooper Opioid use disorder F11.99 ; Nicotine dependence, unspecified, uncomplicated F17.200 ; Overweight (BMI 25.0-29.9) E66.3 and Nutritional counseling Z71.[address] [address] 12/09/2023 [facility] [address] [address] 12/15/2023 Trent Haines Opioid use disorder F11.[address] [address] 12/15/2023 [facility] [address] [address] 12/23/2023 Jessi Fournier Bipolar II disorder F31.81 ; Trauma and stressor-related disorder F43.9 ; Alcohol use disorder F10.99 and Substance use disorder F19.[address] [address] 01/13/2024 Guerline Cooper Opioid use disorder F11.99 ; Nicotine dependence, unspecified, uncomplicated F17.200 ; Overweight (BMI 25.0-29.9) E66.3 and Nutritional counseling Z71.[address] [address] 01/13/2024 Carley Wiley [address] [address] 01/19/2024 Jessi Irlanda Bipolar II disorder F31.81 ; Trauma and stressor-related disorder F43.9 ; Alcohol use disorder F10.99 and Substance use disorder F19.[address] [address] 02/12/2024 Guerline Cooper Opioid use disorder F11.99 and Nicotine dependence, unspecified, uncomplicated F17.[address] [address] 02/18/2024 Sherman Cabrera Bipolar II disorder F31.81 ; Trauma and stressor-related disorder F43.9 ; Alcohol use disorder F10.99 ; Opioid use disorder F11.99 and Nicotine dependence, unspecified, uncomplicated F17.[address] [address] 03/12/2024 David Manzo Opioid use disorder F11.99 and Tobacco use disorder F17.[address] [address] 03/31/2024 Sherman Cabrera Bipolar II disorder F31.81 ; Cluster B personality disorder F60.89 ; Trauma and stressor-related disorder F43.9 ; Alcohol use disorder F10.99 ; Opioid use disorder F11.99 and Nicotine dependence, unspecified, uncomplicated F17.[address] [address] 04/07/2024 Sherman Cabrera Bipolar II disorder F31.81 ; Trauma and stressor-related disorder F43.9 ; Alcohol use disorder F10.99 ; Opioid use disorder F11.99 and Nicotine dependence, unspecified, uncomplicated F17.[address] [address] 04/13/2024 Nasra Jean Opioid use disorder F11.99 and Nicotine dependence, unspecified, uncomplicated F17.[address] [address] 04/27/2024 Sherman Cabrera Bipolar II disorder F31.81 ; Cluster B personality disorder F60.89 ; Trauma and stressor-related disorder F43.9 ; Alcohol use disorder F10.99 ; Opioid use disorder F11.99 and Nicotine dependence, unspecified, uncomplicated F17.[address] [address] 05/12/2024 Guerline Allison Opioid use disorder F11.99 and Nicotine dependence, unspecified, uncomplicated F17.[address] [address] 05/18/2024 Sherman Cabrera Bipolar II disorder F31.81 ; Cluster B personality disorder F60.89 ; Trauma and stressor-related disorder F43.9 ; Alcohol use disorder F10.99 ; Opioid use disorder F11.99 and Nicotine dependence, unspecified, uncomplicated F17.[address] [address] 06/15/2024 Bean Haro Opioid use disorder F11.99 and Nicotine dependence, unspecified, uncomplicated F17.[address] [address] 06/17/2024 Sherman Cabrera Bipolar II disorder F31.81 ; Cluster B personality disorder F60.89 ; Trauma and stressor-related disorder F43.9 ; Alcohol use disorder F10.99 ; Opioid use disorder F11.99 and Nicotine dependence, unspecified, uncomplicated F17.[address] [address] 07/15/2024 Sherman Cabrera Bipolar II disorder F31.81 ; Cluster B personality disorder F60.89 ; Trauma and stressor-related disorder F43.9 ; Alcohol use disorder F10.99 ; Opioid use disorder F11.99 and Nicotine dependence, unspecified, uncomplicated F17.[address] [address] 07/19/2024 Guerline Cooper Opioid use disorder F11.99 and Nicotine dependence, unspecified, uncomplicated F17.[address] [address] 08/11/2024 Sherman Cabrera Bipolar II disorder F31.81 ; Cluster B personality disorder F60.89 ; Trauma and stressor-related disorder F43.9 ; Alcohol use disorder F10.99 ; Opioid use disorder F11.99 and Nicotine dependence, unspecified, uncomplicated F17.[address] [address] 08/19/2024 Guerline Cooper Opioid use disorder F11.[address] [address] 12/11/2023 Jessi Fournier [address] [address] 12/12/2023 Guerline Cooper [address] [address] 12/31/2023 Jessi Fournier [address] [place] [address] 01/13/2024 Guerline Cooper [address] [place] [address] [place] [address] 01/14/2024 Guerline Cooper [address] [place] [address] 02/19/2024 Sherman Cabrera [address] [address] 03/16/2024 Sherman Cabrera Bipolar II disorder F31.[address] [place] [address] 03/31/2024 Sherman Cabrera [address] [facility] [place] [address] 04/08/2024 Sherman Cabrera Assessments Encounter Date Diagnosis (ICD Code) Assessment Notes Treatment Notes Treatment Clinical Notes Section Notes 12/01/2023 Trauma and stressor-related disorder (ICD-10 - [...] or be administered own oral medication per [facility] Protocols. Provided informed consent with understanding of [...] on file Continue Caplyta 42mg daily Discussed longterm rish BZD We also discussed weaning down [...] Refusing crisis She has crisis contact information. [employer] on file and reviewed today HILARIO Tiwari Discussed longterm rish BZD We also discussed weaning down [...] Refusing crisis She has crisis contact information. Katiana on file Continue Caplyta 42mg daily Discussed longterm rish BZD We also discussed weaning down [...] to the emergency department, or contact the [facility] Crisis Unit/Team. Follow up as scheduled in [...] to the emergency department, or contact the [facility] Crisis Unit/Team. Follow up as scheduled in [...] recently started - called DBT recently at [facility] (plans to establish when able), also ordered [...] to the emergency department, or contact the [facility] Crisis Unit/Team. Follow up as scheduled in [...] recently started - called DBT recently at [facility] (plans to establish when able), also ordered [...] to the emergency department, or contact the [facility] Crisis Unit/Team. Follow up as scheduled in [...] recently started - called DBT recently at [facility] (plans to establish when able), also ordered [...] to the emergency department, or contact the [facility] Crisis Unit/Team. Follow up as scheduled in [...] recently started - called DBT recently at [facility] (plans to establish when able), also ordered [...] to the emergency department, or contact the [facility] Crisis Unit/Team. Follow up as scheduled [...] recently started - called DBT recently at [facility] (plans to establish when able), also ordered [...] to the emergency department, or contact the [facility] Crisis Unit/Team. Follow up as scheduled in [...] recently started - called DBT recently at [facility] (plans to establish when able), also ordered [...] health CRISIS, please reach out to [phone] ([facility]), 911, go to the emergency department, or contact the [facility] Crisis Unit/Team. Follow up as scheduled in [...] or be administered own oral medication per [facility] Protocols. Provided informed consent with understanding of [...] to the emergency department, or contact the [facility] Crisis Unit/Team. Follow up as scheduled or [...] or be administered own oral medication per [facility] Protocols. Provided informed consent with understanding of [...] Pt is going to be admitted to [facility] for detox 12/09/2023 Overweight (BMI 25.0-29.9) (ICD-10 - E66.3) 12/09/2023 Nutritional counseling (ICD-10 - Z71.3) 12/23/2023 Alcohol use disorder (ICD-10 - F10.99) Continue MAT services Encouraged AA 12/01/2023 Substance use disorder (ICD-10 - F19.90) Pt is going to be admitted to [facility] for detox 01/13/2024 Nutritional counseling (ICD-10 - Z71.3) 01/19/2024 Alcohol use disorder (ICD-10 - F10.99) Continue MAT services Encouraged AA 02/18/2024 Opioid use disorder (ICD-10 - F11.99) [...] to the emergency department, or contact the [facility] Crisis Unit/Team. Follow up as scheduled or [...] to the emergency department, or contact the [facility] Crisis Unit/Team. Follow up as scheduled or [...] to the emergency department, or contact the [facility] Crisis Unit/Team. Follow up as scheduled or [...] to the emergency department, or contact the [facility] Crisis Unit/Team. Follow up as scheduled or [...] to the emergency department, or contact the [facility] Crisis Unit/Team. Follow up as scheduled or [...] to the emergency department, or contact the [facility] Crisis Unit/Team. Follow up as scheduled or [...] to the emergency department, or contact the [facility] Crisis Unit/Team. Follow up as scheduled or [...] health CRISIS, please reach out to [phone] ([facility] [facility]), 911, go to the emergency department, or contact the [facility] Crisis Unit/Team. Follow up as scheduled or [...] to the emergency department, or contact the [facility] Crisis Unit/Team. Follow up as scheduled or [...] health CRISIS, please reach out to [phone] ([place] [facility]icide [facility] Crisis Lif[facility]), 911, go to the emergency department, or contact the [facility] Crisis Unit/Team. Follow up as scheduled or [...] mental health CRISIS, please reach out to [phone] ([facility] [facility]), 911, go to the emergency department, or contact the [facility] Crisis Unit/Team. Follow up as scheduled or [...] health CRISIS, please reach out to [phone] ([facility] [facility]), 911, go to the emergency department, or contact the [facility] Crisis Unit/Team. Follow up as scheduled or [...] health CRISIS, please reach out to [phone] ([facility] [facility]), 911, go to the emergency department, or contact the [facility] Crisis Unit/Team. Follow up as scheduled or [...] health CRISIS, please reach out to [phone] ([facility] [facility]), 911, go to the emergency department, or contact the [facility] Crisis Unit/Team. Follow up as scheduled or [...] to the emergency department, or contact the [facility] Crisis Unit/Team. Follow up as scheduled or [...] to the emergency department, or contact the [facility] Crisis Unit/Team. Follow up as scheduled or [...] to the emergency department, or contact the [facility] Crisis Unit/Team. Follow up as scheduled or [...] health CRISIS, please reach out to [phone] ([place] [facility]), 911, go to the emergency department, or contact the [facility] Crisis Unit/Team. Follow up as scheduled or [...] health CRISIS, please reach out to [phone] ([place] [facility]), 911, go to the emergency department, or contact the [facility] Crisis Unit/Team. Follow up as scheduled or [...] health CRISIS, please reach out to [phone] ([place] [facility]), 911, go to the emergency department, or contact the [facility] Crisis Unit/Team. Follow up as scheduled or [...] May also contact the 24-hour crisis hotline ([facility]), refer to the closest emergency room or [...] May also contact the 24-hour crisis hotline ([facility]), refer to the closest emergency room or [...] to clinic 4 weeks.Had recent labs at [facility] in 4Continue with therapy.The Patient/Guardian is aware of the need to contact the office or return for an earlier appointment if any problems or concerns arise. May also contact the 24-hour crisis hotline ([facility]), refer to the closest emergency room or [...] self-administe r their own oral medications per [place] Protocol. 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 12/05/2023-12/08/2023 12/05/2023 [facility] 06/08/23-06/10/23 child mental illness 2020 see fareed
--- OUTSIDE RECORDS SUMMARY | 2024-11-29 15:17 | XMS_ITS ---
Author Organization Unknown Plan of Treatment Description Planned Activity Planned Timing [facility] is a provider organization who partners directly with Health Plans and provides integrated primary care, behavioral health, and psychotherapist social worker for an attributed population Letter encounter to patientTelephone encounter Nov 25, 2024Jul 2024 Patient Care team information Name Category Status Period Participants - - Proposed period not known -
--- OUTSIDE RECORDS SUMMARY | 2024-11-29 15:17 | XMS_ITS | Clinical Summary ---
Author Organization [facility] Address [address] [place] [id number] Care Team Providers Care Paint Grinder Stone Mill Name Role Phone Socorro Patel MD Primary Care Provider [phone] Social History Tobacco Use Types Packs/Day Years [...] age to complete this topic Care Teams Paint Grinder Stone Mill Relationship Specialty Start Date End Date Socorro Patel MD [address] [place] [address] [place] [address] (work) PCP - General 12/14/13
== END 2024-11-29 15:14 | disposition home or self-care (01) ==
PROVIDERS: PCP Nurse Practitioner Family; Visit Provider Nurse Practitioner Family
DX: R19.4 Change in bowel habit (principal)
CPT/HCPCS: 74018

== ENCOUNTER 2024-12-22 10:13 | Outpatient (CLI) | payer OTHER, SELFPAY ==
--- OUTSIDE RECORDS SUMMARY | 2024-12-22 10:20 | XMS_ITS | Clinical Summary ---
Author Organization [facility] Address [address] [place] [address] Care Team Providers Care Fishery Biologist Name Role Phone Socorro Patel MD Primary Care Provider [phone]- [phone] Social History Tobacco Use Types Packs/Day Years [...] of 3 - 19+ 3-dose series) 2008 HPV Vaccines (1 - 3-dose SCD M series) 2016 Cervical Cancer Screening Pa p with HPV Testing (Age 30 to 64) Every 5 Years 2019 Cervical Cancer Screening with HPV 2019 COVID-19 Vaccine (2023-2 5 season) 2024 Meningococcal B Vaccine Aged Out No l [...] age to complete this topic Care Teams Fishery Biologist Relationship Specialty Start Date End Date Socorro Patel MD [address] [place] [address] [place] [address] [facility] - General 12/14/13
[2024-12-22 11:31] LABS: Syphilis IgG/IgM Antibody Non-Reactive (Nonreactive)
[2024-12-22 11:35] LABS: Hepatitis B Surface Antigen Negative (Negative)
[2024-12-22 11:41] LABS: HAV RESULT Negative (Negative); Hepatitis B Core IgM Result Negative (Negative)
[2024-12-22 11:53] LABS: HIV 1/2 Ab P24 Ag Result Negative (Negative)
[2024-12-23 07:09] LABS: HSV 1 IgG, Type Spec Reactive (Non Reactive); HSV 2 IgG, Type Spec Non Reactive (Non Reactive)
== END 2024-12-22 10:14 | disposition home or self-care (01) ==
LOC: ANHLAB 10:16
PROVIDERS: PCP Nurse Practitioner Family; Visit Provider Obstetrics & Gynecology
DX: Z11.3 Encounter for screening for infections with a predominantly sexual mode of transmission (principal)
CPT/HCPCS: 36415; 80074; 86593; 86695; 86696; 86703; G0432

== ENCOUNTER 2025-02-11 02:23 | Day surgery (SDC) | payer OTHER, SELFPAY ==
[2025-01-27 11:35] VITALS: BMI 20.4
--- OUTSIDE RECORDS SUMMARY | 2025-02-11 02:27 | XMS_ITS | Encounter Summary ---
Author Organization [facility] Address [address] [facility] [place] [address] Care Team Providers Care Client Integration Manager Name Role Phone Socorro Patel MD Primary Care Provider [phone] Yane Estrada-AVIAN KEEPER Primary Care Provider [phone] Reason for Referral * Radiology Services (Routine) - Authorized Specialty Diagnoses / Procedures Referred By Leeanneac t Referred To Contact Computed Tomography Diagnoses CHANGEOVER OPERATOR (ventriculoperitoneal) shunt status Procedures CT Head Wo Contrast Rajinder Johnson MD [address] [place] [address] [address] [place] [address] Phone: tel: fax: Referral ID Status Reason Start Date Expiration Date V isits Requested Visits Authorized [id number] Authorized 02/07/2025 02/07/2026 1 1 Encounter Details Date Type Department Care Team (Late st Contact Info) Description 02/07/2025 Orders Only [facility] - Neurosurgery [address] [place] [address], [place] [id number] Rajinder Johnson MD [address] [place] [address] [address] [place] [address] CHANGEOVER OPERATOR (ventriculoperitoneal) shunt status Social History Tobacco Use Types Packs/Day Years Used Date Smoking Tobacco: Former Smokeless Tobacco: Never Comments:vape Alcohol Use Standard Drinks/Week Comments Yes [...] and heating? Not hard at all 07/03/2023 [facility] Occup[facility] ional Health - Occupational Stress [...] place to sleep or slept in a residential (including now)? No 07/03/2023 Comments No Sex and Gender Information Value Date Recorded Sex Assigned at Not on file Legal Sex Female 5:10 PM CDT Gender Identity Not on file Sexual Orientation Not on file documented as of this encounter Functional Status * Is person deaf or have serious hearing difficulty? Answer Date of Assessment Author No 07/03/2023 12:00 AM Shelley Ellsworth RN * Is person blind or have serious difficulty seeing? Answer Date of Assessment Author No 07/03/2023 12:00 AM Shelley Ellsworth RN * Does person have serious difficulty walking/climbing stairs? Answer Date of Assessment Author No 07/03/2023 12:00 AM Shelley Ellsworth RN * Does person have difficulty dressing/bathing? Answer Date of Assessment Author No 07/03/2023 12:00 AM Shelley Ellsworth RN * Does person have difficulty doing errands alone? Answer Date of Assessment Author No 07/03/2023 12:00 AM Shelley Ellsworth RN documented as of this encounter Mental Status * Does person have difficulty concentrating/remembering/making decisions? Answer Entry Date Author No 07/03/2023 12:00 AM Shelley Ellsworth RN documented in this encounter Plan of Treatment Upcoming Encounters Date Type Department Care Team (Late st Contact Info) Description 02/15/2025 7:40 AM CDT Appointment [facility] CAT SCAN [address] [place] [address] Rajinder Johnson MD [address] [place] [address] [address] [place] [address] 02/15/2025 8:30 AM CDT Office Visit [facility] Neuro[facility] [address] [place] [address], [place] [address] Rajinder Johnson MD [address] [place] [address] [address] [place] [address] Scheduled Orders Name Type Priority Associated Diagnoses Orde r Schedule CT Head Wo Contrast Imaging Routine CHANGEOVER OPERATOR (ventriculoperitoneal) shunt status 1 Occurrences starting 02/07/2025 until 02/07/2026 documented as of this encounter Visit Diagnoses Diagnosis CHANGEOVER OPERATOR (ventriculoperitoneal) shunt status- Primary Presence of cerebrospinal fluid drainage device documented in this encounter Care Teams Client Integration Manager Relationship Specialty Start Date End Date Socorro Patel MD [address] [place] [id number] PCP - General Family Medicine 12/24/16 02/07/25 Yane Estrada APNP-AVIAN KEEPER [address] [place], [place] [id number] PCP - General Family Medicine 02/08/25 documented as of this encounter
--- OUTSIDE RECORDS SUMMARY | 2025-02-11 02:27 | XMS_ITS | Clinical Summary ---
Author Organization [facility] Address [address] [facility] [place] [address] Care Team Providers Care Metabolic Specialist Name Role Phone Sean Yanelianne NASH Primary Care Provider [phone]- [phone] Source Comments [facility],non-owned Affiliates and Associated Physician Practices is amultiple site organization consisting of ambulatory clinics and hospital sitesin [place], [place], [place] and [place]. This disclosure is being madepursuant to the Care Everywhere program and may not contain all information available regarding this patient. Last updated 18.[facility] Allergies Active Allergy Reactions Criticality Noted Date [...] type 07/02/19 Intentional overdose, initial encounter 07/02/19 24 Suicidal ideation 06/26/2021 PHOTOGRAPHY PROFESSOR (ventriculoperitoneal) shunt status 8 Overview (11/17/2018): 10/21/17 Strata valve @ 0.5 jw 11/17/18 Strata valve @ 0.5 JW Encounters Date Type Department Care Team Description 02/08/2025 Travel 02/07/2025 Orders Only [facility] - Neurosurgery [address] [facility], [place] [address] Rajinder Johnson MD PHOTOGRAPHY PROFESSOR (ventriculoperitoneal) shunt status from Last 3 Months Family History Medical History Relation Name Comments [...] and heating? Not hard at all 07/03/2023 [facility] [place] of Occupat ional Health - Occupational Stress [...] place to sleep or slept in a senior care (including now)? No 07/03/2023 Comments No Sex and Gender Information Value Date Recorded Sex Assigned at Not on file Legal Sex Female 5:10 PM CDT Gender Identity Not on file Sexual Orientation Not on file Last Filed Vital Signs Vital Sign Reading Time Taken Comments Blood Pressure 127/87 07/04/2023 7:43 AM ANIMAL HUSBANDRY WORKER Pulse 103 07/04/2023 7:43 AM ANIMAL HUSBANDRY WORKER Temperature 36.1 C (96.9 F) 07/04/2023 7:43 AM ANIMAL HUSBANDRY WORKER Respiratory Rate 18 07/04/2023 7:43 AM ANIMAL HUSBANDRY WORKER Oxygen Saturation 100% 07/04/2023 7:43 AM ANIMAL HUSBANDRY WORKER Inhaled Oxygen Concentration - - Weight 70.6 kg (155 lb 9.6 oz) 07/02/19 24 11:35 PM ANIMAL HUSBANDRY WORKER Height 170.2 cm (5' 7) 07/02/2023 11:3 5 PM ANIMAL HUSBANDRY WORKER PT Stated Body Mass Index 24.37 07/02/2023 11:35 PM ANIMAL HUSBANDRY WORKER Plan of Treatment Upcoming Encounters Date Type Department Care Team (Late st Contact Info) Description 02/15/2025 7:40 AM CDT Appointment [facility] CAT SCAN [address] [place] [address] Rajinder Johnson MD [address] [place] [address] [address] [place] [address] 02/15/2025 8:30 AM CDT Office Visit [facility] Neuro[facility] [address] [place] [address], [place] [phone] Rajinder Johnson MD [address] [place] [address] [address] [address] Health Maintenance Due Date Last Done Comments HIV SCREENING 2004 HEPATITIS C SCREENING 03/29/2007 DTAP/TDAP/TD VACCINES (1 - Tdap) 2008 HEPATITIS B VACCINE (1 of 3 - 19+ 3-dose series) 2008 PAP SMEAR 2010 HPV VACCINE (1 - 3-dose SCDM series) 2016 DEPRESSION SCREENING 06/02/2024 COVID-19 VACCINE ( - season) 2025 INFLUENZA VACCINE (#1) 2025 3, 05/24/2021, 03/27/2020, Additional history exists ZOSTER VACCINE [...] patient's age to complete this topic Insurance [facility] [id number] Advance Directives * Full Code (Latest Code Status on File) Date Activated Date Inactivated Comments 07/02/2023 7:43 PM 07/04/2023 1:31 PM * Full Code Date Activated Date Inactivated Comments 06/26/2021 2:38 AM 06/28/2021 3:22 PM Care Teams Metabolic Specialist Relationship Specialty Start Date End Date Yane Estrada APNP-[address] [address] PCP - General Family Medicine 02/08/25
--- OUTSIDE RECORDS SUMMARY | 2025-02-11 02:27 | XMS_ITS | Patient Health Record ---
Author Organization [facility] Address [address] [place] [address] Care Team Providers [facility] Psychiatrist Name Role Phone Bean Haro Primary Care Provider Sherman Cabrera Unavailable [phone] JovanyDebleona Unavailable [phone] Nasra Jean Unavailable [phone] Guerline Cooper Unavailable [phone] Allergies Allergen (clinical drug ingredient) Drug/Non Drug Allergy documented on EMR Reaction Allergy Type Onset Date Status No Known Drug Allergy Unknown Drug Allergy Active Results Component Value Reference Range Notes 12 Panel Urine Drug Screen Reviewed date:06/15/2024 02:49:08 PM Interpretation: Performing Lab: Notes/Report: THC neg FELICITA neg MOP (OPI) neg AMP neg MET neg BAR neg BZO POS MDMA neg MTD neg OXY neg PCP neg BUP POS 12 Panel Urine Drug Screen Reviewed date:07/19/2024 02:48:58 PM Interpretation: Performing Lab: Notes/Report: THC neg FELICITA neg MOP (OPI) neg AMP neg MET neg BAR neg BZO POS MDMA neg MTD neg OXY neg PCP neg BUP POS Buprenorphine and Metabolite (Urine test) Reviewed date:06/22/2024 07:46:45 PM Interpretation: Performing Lab:[facility] [place], [address], [place], Phone - [phone], Director - PhDAbudu Notes/Report: Clinical Information:[id number] LM Buprenorphine Positive Confirmation p erformed by Mass Spectrometry Buprenorphine Positive Buprenorphine Conf, MS, UR 138 Cutoff=10 ng/m L Norbuprenorphine Positive Norbuprenorphine Conf, MS, UR 215 Cutoff=10 n g/mL 12 Panel Urine Drug Screen Reviewed date:03/12/2024 09:13:18 AM Interpretation: Performing Lab: Notes/Report: THC neg FELICITA neg MOP (OPI) neg AMP neg MET neg BAR neg BZO POS MDMA neg MTD neg OXY neg PCP neg BUP POS 12 Panel Urine Drug Screen Reviewed date:08/19/2024 09:10:35 AM Interpretation: Performing Lab: Notes/Report: THC neg FELICITA neg MOP (OPI) neg AMP neg MET neg BAR neg BZO POS MDMA neg MTD neg OXY neg PCP neg BUP POS 12 Panel Urine Drug Screen Reviewed date:02/12/2024 [...] neg OXY neg PCP neg BUP POS CMP 14 Comprehensive Metabol ic Panel* Reviewed date:04/08/2024 12:43:46 PM Interpretation: Performing Lab:[facility] [place], [address] [facility], Phone - [phone], Director - Charity Notes/Report: Glucose 82 70-99 mg/dL BUN 9 [...] Panel* Reviewed date:04/08/2024 12:43:12 PM Interpretation: Performing [facility], [address] [place] [address], Phone - [phone], Director - [facility] Notes/Report: Cholesterol, Total 139 100-199 mg/dL Triglycerides 81 0-149 mg/dL HDL Cholesterol 46 >39 mg/dL VLDL Cholesterol Brayden 16 5-40 mg/dL LDL Chol Calc (NIH) 77 0-99 mg/dL TSH+Free T4* Reviewed date:04/08/2024 12:42:55 PM Interpretation: Performing Lab:[facility], [address] [place] [address], Phone - [phone], Director - [facility] Notes/Report: TSH 0.841 0.450-4.500 uIU/mL T4,Free(Direct) 1.04 0.82-1.77 ng/dL Vitamin D, 25-Hydroxy* Reviewed date:04/08/2024 12:42:40 PM Interpretation: Performing Lab:[address], Phone - [phone], Director - [facility] Notes/Report: Vitamin D, 25-Hydroxy 71.8 30.0-100.0 ng/mL Vitamin D deficiency has been defined by the [place] of [employer] and an Endocrine Society practice guideline as a level of serum 25-OH vitamin D less than 20 ng/mL (1,2). The Endocrine Society went on to further define vitamin D insufficiency as a level between 21 and 29 ng/mL (2). 1. IOM ([place] [employer]). 2010. Dietary reference intakes for calcium and D. [place]: The National Academies Press. 2. Nikia MF, Lauri NC, Glen LOPEZ, et al. Evaluation, treatment, and prevention of vitamin D deficiency: an Endocrine Society clinical practice guideline. JCEM. 2010; 96(7):1911-30. CBC With Differential/Platel et* Reviewed date:04/08/2024 12:44:36 PM Interpretation: Performing Lab:[facility], [address] [place] [address], Phone - [phone], Director - [facility] Notes/Report: WBC 4.0 3.4-10.8 x10E3/uL RBC [...] Serum* Reviewed date:04/08/2024 12:43:24 PM Interpretation: Performing Lab:[facility] [address], Phone - [phone], [facility] Notes/Report: Folate (Folic Acid), Serum 5.6 >3.0 ng/mL A serum folate concentration of less than 3.1 ng/mL is considered to represent clinical deficiency. Vitamin B12* Reviewed date:04/08/2024 12:42:49 PM Interpretation: Performing Lab:[facility] [place], [address] [place] [address], Phone - [phone], [facility] Notes/Report: Vitamin B12 4463 841-3488 pg/mL Hemoglobin A1c* Reviewed date:04/08/2024 12:43:18 PM Interpretation: Performing Lab:[facility] [address], Phone - [phone], [facility] Notes/Report: Hemoglobin A1c 5.1 4.8-5.6 % . Prediabetes: 5.7 - 6.4 Diabetes: >6.4 Glycemic control for adults with diabetes: <7.0 12 Panel Urine Drug Screen Reviewed date:05/12/2024 02:31:33 PM Interpretation: Performing Lab: Notes/Report: THC neg FELICITA neg MOP (OPI) neg AMP neg MET neg BAR neg BZO POS MDMA neg MTD neg OXY ng PCP neg BUP POS Reason For Referral Reason Would you please pro vide patient with information on local DBT resources and/or refer patient to DBT specialist? I suspect patient has borderline personality disorder, and patient reports previous improvement with this therapy modality. Thanks! 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 Stress is when someone feels tense, nervous, anxious, or can\t sleep at night because their mind is troubled Somewhat In the past year have you sp ent more than 2 nights in a row in a prison, [place] [facility] [place], [facility] center, or juvenile correctional facility? No Are [...] [facility] REFILL NO. REFILLS STATE PATIENT [id number] 10/03/2023 08/04/2023 ALPRAZolam 90.0 30 1 MG NA Socorro Patel L, (Md) - [id number] [facility] [place] [facility] [place] [id number] 09/22/2023 09/15/2023 Morphine Sulfate 30.0 30 15 MG 15 Socorro Patel L, (Md) - [id number] [facility] [place] [id number] 09/17/2023 09/15/2023 ACETAMINOPHEN 325 MG / oxyCODONE HYDROCHLORIDE 10 MG ORAL TABLET 90.0 30 10.0 MG/325.0 MG 45 Socorro Patel L, (Md) - [id number] [facility] [place] [id number] 09/04/2023 08/04/2023 ALPRAZolam 90.0 30 1 MG PRESCRIPTION # FILLED WRITTEN DRUG LABEL QTY DAYS STRENGTH MME [facility] REFILL NO. REFILLS STATE 12/01/2023 11/20/2023 ALPRAZolam 90.0 30 1 MG NA Manuelito Luke - [id number] [facility] [place] 1 [id number] 11/17/2023 11/17/2023 Triazolam 15.0 30 0.125 MG NA Jessi Fournier [facility] - [id number] [facility] [place] 1 365555 11/12/2023 11/12/2023 ALPRAZolam 90.0 30 0.5 M PRESCRIPTION # FILLED WRITTE N DRUG LABEL QTY DAYS STRENGTH MME [facility] REFILL NO. REFILLS STATE PATIENT [id number] 08/22/2023 08/22/2023 ACETAMINOPHEN 325 MG / oxyCODONE HYDROCHLORIDE 10 MG ORAL TABLET 90.0 30 10.0 MG/325.0 MG 45 Socorro Patel L, (Md) - [id number] [facility] [place] [id number] 08/22/2023 08/22/2023 Morphine Sulfate 30.0 30 15 MG 15 Socorro Patel L, (Md) - [id number] [facility] [place] [id number] 08/13/2023 08/13/2023 Triazolam 15.0 30 0.125 MG NA Abdiel Cami Sheila Christopher Floor Attendant-bc - [id number] [employer] [place], [place] NA 0 [place] [id number] 08/05/2023 08/04/2023 ALPRAZolam 90.0 30 1 MG NA Socorro Patel L, (Md) - [id number] [facility] [facility] [place], [place] NA 2 [place] [id number] 07/16/2023 07/16/2023 Triazolam 15.0 15 0.125 PRESCRIPTION # FILLED WRITTE N DRUG LABEL QTY DAYS STRENGTH MME [facility] REFILL NO. REFILLS STATE PATIENT [id number] 10/03/2023 08/04/2023 ALPRAZolam 90.0 30 1 MG NA Socorro Patel L, (Md) - [id number] [employer] [facility] [place], [place] NA 2 [place] [id number] 09/22/2023 09/15/2023 Morphine Sulfate 30.0 30 15 MG 15 Socorro Patel L, (Md) - [id number] [employer] [facility] [place], [place] NA 0 [place] [id number] 09/17/2023 09/15/2023 ACETAMINOPHEN 325 MG / oxyCODONE HYDROCHLORIDE 10 MG ORAL TABLET 90.0 30 10.0 MG/325.0 MG 45 Socorro Patel L, (Md) - [id number] [employer] [place], [place] NA 0 [place] [id number] 09/04/2023 08/04/2023 ALPRAZolam 90.0 30 1 MG PRESCRIPTION # FILLED WRITTEN DRUG LABEL QTY DAYS STRENGTH MME [facility] REFILL NO. REFILLS STATE 12/01/2023 11/20/2023 ALPRAZolam 90.0 30 1 MG NA Manuelito Luke - [id number] [employer] [place], [place] NA 0 [place] 1 [id number] 11/17/2023 11/17/2023 Triazolam 15.0 30 0.125 MG NA Jessi Fournierp - [id number] [employer] [place], [place] NA 0 [place] 1 486367 11/12/2023 11/12/2023 ALPRAZolam 90.0 30 0.5 M PRESCRIPTION # FILLED WRITTEN DRUG LABEL QTY DAYS STRENGTH MME [facility] REFILL NO. REFILLS STATE 12/01/2023 11/20/2023 ALPRAZolam 90.0 30 1 MG NA Manuelito Luke - [id number] [facility], [place] 1 166091 11/17/2023 11/17/2023 Triazolam 15.0 30 0.125 MG NA Jessi Fournier [facility] - [id number] [employer] [place], [place] NA 0 [place] 1 412465 11/12/2023 11/12/2023 ALPRAZolam 90.0 30 0.5 M PRESCRIPTION # FILLED WRITTE N DRUG LABEL QTY DAYS STRENGTH MME [facility] REFILL NO. REFILLS STATE PATIENT [id number] 10/03/2023 08/04/2023 ALPRAZolam 90.0 30 1 MG NA Socorro Patel L, (Md) - [id number] [facility] [id number] 09/22/2023 09/15/2023 Morphine Sulfate 30.0 30 15 MG 15 Socorro Patel L, (Md) - [id number] [facility], [place] 0116583 09/17/2023 09/15/2023 ACETAMINOPHEN 325 MG / oxyCODONE HYDROCHLORIDE 10 MG ORAL TABLET 90.0 30 10.0 MG/325.0 MG 45 Socorro Patel L, (Md) - [id number] [facility], [place] 0 [place] [id number] 09/04/2023 08/04/2023 ALPRAZolam 90.0 30 1 MG Problems Problem Type SNOMED Code ICD Code Onset Dates Problem Status W/U Status Risk Notes Problem Tobacco user (303732408) Nicotine dependence, unspecified, uncomplicated (F17.200) Active confirmed Problem Bipolar II disorder (98041571) Bipolar II disorder (F31.81) Active confirmed Problem Alcohol use disorder (2304627740) Alcohol use disorder (F10.99) Active confirmed Problem Adjustment disorder (06632759) Trauma and stressor-related disorder (F43.9) Active confirmed Problem Tobacco use (942064687) Tobacco use disorder (F17.200) Active confirmed Problem Opioid use disorder (9756876618) Opioid use disorder (F11.99) Active confirmed Problem Cluster B personality disorder (2407780) Cluster B personality disorder (F60.89) Active confirmed Vital Signs Heart Rate 91 /min 08/19/2024 Temperature 98.6 degrees Fahrenheit 04/13/2024 Respiratory Rate 16 /min 08/19/2024 Oximetry 98 % 08/19/2024 Blood pressure diastolic 70 mm Hg 08/19/2024 Height 67 in 08/19/2024 Blood pressure systolic 122 mm Hg 08/19/2024 Weight 129 lb 6 oz lbs 08/19/2024 BMI 20.26 kg/m2 08/19/2024 Encounters Encounter Location Date Provider Diagnosis [address] [address] 02/12/2024 Guerline Cooper Opioid use disorder F11.99 and Nicotine dependence, unspecified, uncomplicated F17.[address] [address] 02/18/2024 Sherman Cabrera Bipolar II disorder F31.81 ; Trauma and stressor-related disorder F43.9 ; Alcohol use disorder F10.99 ; Opioid use disorder F11.99 and Nicotine dependence, unspecified, uncomplicated F17.[address] [address] 03/12/2024 David Manzo Opioid use disorder F11.99 and Tobacco use disorder F17.[address] [address] 03/31/2024 Sherman Cabrera Bipolar II disorder F31.81 ; Cluster B personality disorder F60.89 ; Trauma and stressor-related disorder F43.9 ; Alcohol use disorder F10.99 ; Opioid use disorder F11.99 and Nicotine dependence, unspecified, uncomplicated F17.[address] [address] 04/07/2024 Sherman Cabrera Bipolar II disorder F31.81 ; Trauma and stressor-related disorder F43.9 ; Alcohol use disorder F10.99 ; Opioid use disorder F11.99 and Nicotine dependence, unspecified, uncomplicated F17.[address] [address] 04/13/2024 Nasra Heathkalpana Opioid use disorder F11.99 and Nicotine dependence, unspecified, uncomplicated F17.[address] [address] 04/27/2024 Sherman Cabrera Bipolar II disorder F31.81 ; Cluster B personality disorder F60.89 ; Trauma and stressor-related disorder F43.9 ; Alcohol use disorder F10.99 ; Opioid use disorder F11.99 and Nicotine dependence, unspecified, uncomplicated F17.[address] [address] 05/12/2024 Guerline Cooper Opioid use disorder F11.99 and Nicotine dependence, unspecified, uncomplicated F17.[address] [address] 05/18/2024 Sherman Cabrera Bipolar II disorder F31.81 ; Cluster B personality disorder F60.89 ; Trauma and stressor-related disorder F43.9 ; Alcohol use disorder F10.99 ; Opioid use disorder F11.99 and Nicotine dependence, unspecified, uncomplicated F17.[address] [address] 06/15/2024 Bean Haro Opioid use disorder F11.99 and Nicotine dependence, unspecified, uncomplicated F17.[address] [address] 06/17/2024 Sherman Cabrera Bipolar II disorder F31.81 ; Cluster B personality disorder F60.89 ; Trauma and stressor-related disorder F43.9 ; Alcohol use disorder F10.99 ; Opioid use disorder F11.99 and Nicotine dependence, unspecified, uncomplicated F17.[address] [place] [address] 07/15/2024 Shermanjackie Cabrera Bipolar II disorder F31.81 ; Cluster B personality disorder F60.89 ; Trauma and stressor-related disorder F43.9 ; Alcohol use disorder F10.99 ; Opioid use disorder F11.99 and Nicotine dependence, unspecified, uncomplicated F17.[address] [address] 07/19/2024 Guerline Szlufivanessa Opioid use disorder F11.99 and Nicotine dependence, unspecified, uncomplicated F17.[address] [address] 08/11/2024 Shermanjackie Cabrera Bipolar II disorder F31.81 ; Cluster B personality disorder F60.89 ; Trauma and stressor-related disorder F43.9 ; Alcohol use disorder F10.99 ; Opioid use disorder F11.99 and Nicotine dependence, unspecified, uncomplicated F17.[address] [address] 08/19/2024 Guerline Cooper Opioid use disorder F11.[address] [address] 02/19/2024 Sherman Cabrera [address] [address] 03/16/2024 Sherman Cabrera Bipolar II disorder F31.[address] [address] 03/31/2024 Sherman Cabrera [address] [address] 04/08/2024 Sherman Cabrera Assessments Encounter Date Diagnosis (ICD Code) Assessment Notes Treatment Notes Treatment Clinical Notes Section Notes 02/12/2024 Nicotine dependence, unspecified, uncomplicated (ICD-10 - F17.200) 02/12/2024 Opioid use disorder (ICD-10 - F11.99) 02/18/2024 Bipolar II disorder (ICD-10 - F31.81) Duration (acute/chronic), stability (controlled/uncont rolled): Chronic, stable on current medication regimen, room for improvement but patient declines making medication changes at this time Current medications/effica cy: Somewhat Previous FAILED medication trials: Trazodone, Ambien, [...] Consume plenty of fruits/vegetables, healthy grains/whole grains, unsaturated/health y fats (liquid at room temperature, such as [...] techniques, such as guided imagery, journaling, aromatherapy, acupuncture/acupre ssure, deep breathing, etc. Practice healthy sleep hygiene [...] Continue monitoring symptoms - report persistent or worsening/concerni ng symptoms to the office or go to the ER. For mental health CRISIS, please reach out to [phone] (National Suicide and Crisis Lifeline), 911, go to the emergency department, or contact the [facility] Crisis Unit/Team. Follow up as scheduled in 6 weeks or sooner if necessary. Follow up with PCP and/or other specialists as advised. 02/18/2024 Trauma and stressor-related disorder (ICD-10 - F43.9) Duration (acute/chronic), stability (controlled/uncont rolled): Chronic, stable on current medication regimen, room for improvement but patient declines making medication changes at this time Current medications/effica cy: Somewhat Previous FAILED medication trials: Trazodone, Ambien, [...] Consume plenty of fruits/vegetables, healthy grains/whole grains, unsaturated/health y fats (liquid at room temperature, such as [...] techniques, such as guided imagery, journaling, aromatherapy, acupuncture/acupre ssure, deep breathing, etc. Practice healthy sleep hygiene [...] Continue monitoring symptoms - report persistent or worsening/concerni ng symptoms to the office or go to the ER. For mental health CRISIS, please reach out to 988 (National Suicide and Crisis Lifeline), 911, go to the emergency department, or contact the [facility] Crisis Unit/Team. Follow up as scheduled in 6 weeks or sooner if necessary. Follow up with PCP and/or other specialists as advised. 03/12/2024 Tobacco use disorder (ICD-10 - F17.200) 03/12/2024 Opioid use disorder (ICD-10 - F11.99) 03/16/2024 Bipolar II disorder (ICD-10 - F31.81) 03/31/2024 Bipolar II disorder (ICD-10 - F31.81) Duration (acute/chronic), stability (controlled/uncont rolled): Chronic, mildly uncontrolled on current medication regimen, room for improvement especially related to anxiety Current medications/effica cy: Somewhat, room for improvement Previous FAILED medication trials: Trazodone, Ambien, Remeron, Seroquel, SNRIs (cause SI), Wellbutrin, Prozac, Abilify (ineffective) Current/previous therapies: Sees therapist regularly, twice monthly, only recently started - called DBT recently at [facility] (plans to establish when able), also ordered [...] Consume plenty of fruits/vegetables, healthy grains/whole grains, unsaturated/health y fats (liquid at room temperature, such as [...] techniques, such as guided imagery, journaling, aromatherapy, acupuncture/acupre ssure, deep breathing, etc. Practice healthy sleep hygiene [...] Continue monitoring symptoms - report persistent or worsening/concerni ng symptoms to the office or go to the ER. For mental health CRISIS, please reach out to [phone] (National Suicide and Crisis Lifeline), 911, go to the emergency department, or contact the [facility] Crisis Unit/Team. Follow up as scheduled in 6 weeks or sooner if necessary. Follow up with PCP and/or other specialists as advised. NEXT STEP: Consider increasing oxcarbazepine pending response/tolerabil ity. Consider adding SNRI as needed, see above. Consider increasing propranolol as needed. Review labs. 03/31/2024 Cluster B personality disorder (ICD-10 - F60.89) See assessment and plan for bipolar II disorder 04/07/2024 Bipolar II disorder (ICD-10 - F31.81) 04/13/2024 Opioid use disorder (ICD-10 - F11.99) 04/27/2024 Bipolar II disorder (ICD-10 - F31.81) Duration (acute/chronic), stability (controlled/uncont rolled): Chronic, mildly uncontrolled on current medication regimen, room for improvement especially related to anxiety Current medications/effica cy: Somewhat, room for improvement Previous FAILED medication [...] recently started - called DBT recently at [facility] (plans to establish when able), also ordered [...] Consume plenty of fruits/vegetables, healthy grains/whole grains, unsaturated/health y fats (liquid at room temperature, such as [...] techniques, such as guided imagery, journaling, aromatherapy, acupuncture/acupre ssure, deep breathing, etc. Practice healthy sleep hygiene [...] Continue monitoring symptoms - report persistent or worsening/concerni ng symptoms to the office or go to the ER. For mental health CRISIS, please reach out to 988 (National Suicide and Crisis Lifeline), 911, go to the emergency department, or contact the [facility] Crisis Unit/Team. Follow up as scheduled in 4 weeks or sooner if necessary. Follow up with PCP and/or other specialists as advised. NEXT STEP: Consider increasing buspirone pending response/tolerabil ity. Consider adding SNRI as needed, see above. Consider increasing propranolol as needed. Consider switching lumateperone to other SGA, such as risperidone. 05/12/2024 Nicotine dependence, unspecified, uncomplicated (ICD-10 - F17.200) 05/12/2024 Opioid use disorder (ICD-10 - F11.99) 05/18/2024 Bipolar II disorder (ICD-10 - F31.81) Duration (acute/chronic), stability (controlled/uncont rolled): Chronic, mildly uncontrolled on current medication regimen, room for improvement Current medications/effica cy: Somewhat, room for improvement Previous FAILED medication [...] recently started - called DBT recently at [facility] (plans to establish when able), also ordered [...] Consume plenty of fruits/vegetables, healthy grains/whole grains, unsaturated/health y fats (liquid at room temperature, such as [...] techniques, such as guided imagery, journaling, aromatherapy, acupuncture/acupre ssure, deep breathing, etc. Practice healthy sleep hygiene [...] Continue monitoring symptoms - report persistent or worsening/concerni ng symptoms to the office or go to the ER. For mental health CRISIS, please reach out to 988 (National Suicide and Crisis Lifeline), 911, go to the emergency department, or contact the [facility] Crisis Unit/Team. Follow up as scheduled in 4 weeks or sooner if necessary. Follow up with PCP and/or other specialists as advised. NEXT STEP: Consider increasing buspirone pending response/tolerabil ity. Consider adding SNRI as needed, see above. Consider increasing propranolol as needed. Consider switching lumateperone to other SGA, such as risperidone. 06/15/2024 Nicotine dependence, unspecified, uncomplicated (ICD-10 - F17.200) 06/15/2024 Opioid use disorder (ICD-10 - F11.99) 06/17/2024 Bipolar II disorder (ICD-10 - F31.81) Duration (acute/chronic), stability (controlled/uncont rolled): Chronic, improving with recent medication adjustments, room for improvement Current medications/effica cy: Somewhat, room for improvement Previous FAILED medication [...] recently started - called DBT recently at [facility] (plans to establish when able), also ordered DBT book which patient has recently received and started reading (feels this is going to be helpful) Examination as documented - see pertinent aspects of office visit documentation. Pertinent diagnostics: LABS COMPLETED IN 04/2024, SEE CHART Differential diagnoses: r/o BPD/cluster B traits Patient agreeable to increasing buspirone to assist with anxiety/depression . Agreeable to increasing doxazosin to assist with [...] Consume plenty of fruits/vegetables, healthy grains/whole grains, unsaturated/health y fats (liquid at room temperature, such as [...] techniques, such as guided imagery, journaling, aromatherapy, acupuncture/acupre ssure, deep breathing, etc. Practice healthy sleep hygiene [...] Continue monitoring symptoms - report persistent or worsening/concerni ng symptoms to the office or go to the ER. For mental health CRISIS, please reach out to 988 (National Suicide and Crisis Lifeline), 911, go to the emergency department, or contact the [facility] Crisis Unit/Team. Follow up as scheduled in 4 weeks or sooner if necessary. Follow up with PCP and/or other specialists as advised. NEXT STEP: Consider increasing buspirone. Consider increasing doxazosin - consider twice daily dosing if necessary to manage daytime symptoms of PTSD. Consider increasing eszopiclone pending response/tolerabil ity. Consider adding SNRI as needed, see above. Consider increasing propranolol as needed. Consider switching lumateperone to other SGA, such as risperidone. 07/15/2024 Bipolar II disorder (ICD-10 - F31.81) Duration (acute/chronic), stability (controlled/uncont rolled): Chronic, improving with recent medication adjustments, room for improvement Current medications/effica cy: Somewhat, room for improvement Previous FAILED medication [...] recently started - called DBT recently at [facility] (plans to establish when able), also ordered [...] Consume plenty of fruits/vegetables, healthy grains/whole grains, unsaturated/health y fats (liquid at room temperature, such as [...] techniques, such as guided imagery, journaling, aromatherapy, acupuncture/acupre ssure, deep breathing, etc. Practice healthy sleep hygiene [...] Continue monitoring symptoms - report persistent or worsening/concerni ng symptoms to the office or go to the ER. For mental health CRISIS, please reach out to [phone] ([employer] [facility]), 911, go to the emergency department, or contact the [facility] Crisis Unit/Team. Follow up as scheduled in 4 weeks or sooner if necessary. Follow up with PCP and/or other specialists as advised. NEXT STEP: Consider increasing doxazosin - consider twice daily dosing if necessary to manage daytime symptoms of PTSD. Consider increasing eszopiclone pending response/tolerabil ity. Consider adding SNRI as needed, see above. Consider increasing propranolol as needed. Consider switching lumateperone to other SGA, such as risperidone. 07/19/2024 Nicotine dependence, unspecified, uncomplicated (ICD-10 - F17.200) 07/19/2024 Opioid use disorder (ICD-10 - F11.99) 08/11/2024 Bipolar II disorder (ICD-10 - F31.81) Duration (acute/chronic), stability (controlled/uncont rolled): Chronic, improving with recent medication adjustments, room for improvement Current medications/effica cy: Somewhat, room for improvement Previous medication trials: [...] recently started - called DBT recently at [facility] (plans to establish when able), also ordered [...] Consume plenty of fruits/vegetables, healthy grains/whole grains, unsaturated/health y fats (liquid at room temperature, such as [...] techniques, such as guided imagery, journaling, aromatherapy, acupuncture/acupre ssure, deep breathing, etc. Practice healthy sleep hygiene [...] Continue monitoring symptoms - report persistent or worsening/concerni ng symptoms to the office or go to the ER. For mental health CRISIS, please reach out to [phone] ([employer] [facility]), 911, go to the emergency department, or contact the [facility] Crisis Unit/Team. Follow up as scheduled in 4 weeks or sooner if necessary. Follow up with PCP and/or other specialists as advised. NEXT STEP: Consider increasing doxazosin - consider twice daily dosing if necessary to manage daytime symptoms of PTSD. Consider increasing eszopiclone pending response/tolerabil ity. Consider adding SNRI as needed, see above. [...] Trauma and stressor-related disorder (ICD-10 - F43.9) 04/13/2024 Nicotine dependence, unspecified, uncomplicated (ICD-10 - F17.200) 03/31/2024 Trauma and stressor-related disorder (ICD-10 - F43.9) See assessment and plan for bipolar II disorder 02/18/2024 Alcohol use disorder (ICD-10 - F10.99) Duration (acute/chronic), stability (controlled/uncont rolled): Previous problem, last drink in 11/2023, well controlled with current medication regimen Current medications/effica cy: Yes Previous FAILED medication trials: N/A Current/previous [...] Consume plenty of fruits/vegetables, healthy grains/whole grains, unsaturated/health y fats (liquid at room temperature, such as [...] techniques, such as guided imagery, journaling, aromatherapy, acupuncture/acupre ssure, deep breathing, etc. Practice healthy sleep hygiene [...] Continue monitoring symptoms - report persistent or worsening/concerni ng symptoms to the office or go to the ER. For mental health CRISIS, please reach out to [phone] ([facility]), 911, go to the emergency department, or contact the [facility] Crisis Unit/Team. Follow up as scheduled or sooner if necessary. Follow up with PCP and/or other specialists as advised. 02/18/2024 Opioid use disorder (ICD-10 - F11.99) Duration (acute/chronic), stability (controlled/uncont rolled): Previous problem, pain medications through pain management, well controlled on Suboxone Current medications/effica cy: Yes Previous FAILED medication trials: N/A Examination [...] Consume plenty of fruits/vegetables, healthy grains/whole grains, unsaturated/health y fats (liquid at room temperature, such as [...] techniques, such as guided imagery, journaling, aromatherapy, acupuncture/acupre ssure, deep breathing, etc. Practice healthy sleep hygiene [...] Continue monitoring symptoms - report persistent or worsening/concerni ng symptoms to the office or go to the ER. For mental health CRISIS, please reach out to [phone] ([facility]), 911, go to the emergency department, or contact the [facility] Crisis Unit/Team. Follow up as scheduled or sooner if necessary. Follow up with PCP and/or other specialists as advised. 03/31/2024 Alcohol use disorder (ICD-10 - F10.99) Duration (acute/chronic), stability (controlled/uncont rolled): Previous problem, last drink in 11/2023, well controlled with current medication regimen Current medications/effica cy: Yes Previous FAILED medication trials: N/A Current/previous [...] Consume plenty of fruits/vegetables, healthy grains/whole grains, unsaturated/health y fats (liquid at room temperature, such as [...] techniques, such as guided imagery, journaling, aromatherapy, acupuncture/acupre ssure, deep breathing, etc. Practice healthy sleep hygiene [...] Continue monitoring symptoms - report persistent or worsening/concerni ng symptoms to the office or go to the ER. For mental health CRISIS, please reach out to [phone] ([facility]), 911, go to the emergency department, or contact the [facility] Crisis Unit/Team. Follow up [...] disorder (ICD-10 - F10.99) Duration (acute/chronic), stability (controlled/uncont rolled): Previous problem, last drink in 11/2023, well controlled with current medication regimen Current medications/effica cy: Yes Previous FAILED medication trials: N/A Current/previous [...] Consume plenty of fruits/vegetables, healthy grains/whole grains, unsaturated/health y fats (liquid at room temperature, such as [...] techniques, such as guided imagery, journaling, aromatherapy, acupuncture/acupre ssure, deep breathing, etc. Practice healthy sleep hygiene [...] Continue monitoring symptoms - report persistent or worsening/concerni ng symptoms to the office or go to the ER. For mental health CRISIS, please reach out to [phone] ([facility]), 911, go to the emergency department, or contact the [facility] Crisis Unit/Team. Follow up as scheduled or sooner if necessary. Follow up with PCP and/or other specialists as advised. NEXT STEP: Consider MAT as needed. 06/17/2024 Alcohol use disorder (ICD-10 - F10.99) Duration (acute/chronic), stability (controlled/uncont rolled): Previous problem, last drink in 11/2023, well controlled with current medication regimen Current medications/effica cy: Yes Previous FAILED medication trials: N/A Current/previous [...] Consume plenty of fruits/vegetables, healthy grains/whole grains, unsaturated/health y fats (liquid at room temperature, such as [...] techniques, such as guided imagery, journaling, aromatherapy, acupuncture/acupre ssure, deep breathing, etc. Practice healthy sleep hygiene [...] Continue monitoring symptoms - report persistent or worsening/concerni ng symptoms to the office or go to the ER. For mental health CRISIS, please reach out to [phone] ([facility]), 911, go to the emergency department, or contact the [facility] Crisis Unit/Team. Follow up as scheduled or sooner if necessary. Follow up with PCP and/or other specialists as advised. NEXT STEP: Consider MAT as needed. 07/15/2024 Alcohol use disorder (ICD-10 - F10.99) Duration (acute/chronic), stability (controlled/uncont rolled): Previous problem, last drink in 11/2023, well controlled with current medication regimen Current medications/effica cy: Yes Previous FAILED medication trials: N/A Current/previous [...] Consume plenty of fruits/vegetables, healthy grains/whole grains, unsaturated/health y fats (liquid at room temperature, such as [...] techniques, such as guided imagery, journaling, aromatherapy, acupuncture/acupre ssure, deep breathing, etc. Practice healthy sleep hygiene [...] Continue monitoring symptoms - report persistent or worsening/concerni ng symptoms to the office or go to the ER. For mental health CRISIS, please reach out to [phone] ([facility]), 911, go to the emergency department, or contact the [facility] Crisis Unit/Team. Follow up as scheduled or sooner if necessary. Follow up with PCP and/or other specialists as advised. NEXT STEP: Consider MAT as needed. 04/27/2024 Alcohol use disorder (ICD-10 - F10.99) Duration (acute/chronic), stability (controlled/uncont rolled): Previous problem, last drink in 11/2023, well controlled with current medication regimen Current medications/effica cy: Yes Previous FAILED medication trials: N/A Current/previous [...] Consume plenty of fruits/vegetables, healthy grains/whole grains, unsaturated/health y fats (liquid at room temperature, such as [...] techniques, such as guided imagery, journaling, aromatherapy, acupuncture/acupre ssure, deep breathing, etc. Practice healthy sleep hygiene [...] Continue monitoring symptoms - report persistent or worsening/concerni ng symptoms to the office or go to the ER. For mental health CRISIS, please reach out to [phone] ([employer] [facility]), 911, go to the emergency department, or contact the [facility] Crisis Unit/Team. Follow up as scheduled or sooner if necessary. Follow up with PCP and/or other specialists as advised. NEXT STEP: Consider MAT as needed. 05/18/2024 Alcohol use disorder (ICD-10 - F10.99) Duration (acute/chronic), stability (controlled/uncont rolled): Previous problem, last drink in 11/2023, well controlled with current medication regimen Current medications/effica cy: Yes Previous FAILED medication trials: N/A Current/previous [...] Consume plenty of fruits/vegetables, healthy grains/whole grains, unsaturated/health y fats (liquid at room temperature, such as [...] techniques, such as guided imagery, journaling, aromatherapy, acupuncture/acupre ssure, deep breathing, etc. Practice healthy sleep hygiene [...] Continue monitoring symptoms - report persistent or worsening/concerni ng symptoms to the office or go to the ER. For mental health CRISIS, please reach out to [phone] ([facility]), 911, go to the emergency department, or contact the [facility] Crisis Unit/Team. Follow up as scheduled or sooner if necessary. Follow up with PCP and/or other specialists as advised. NEXT STEP: Consider MAT as needed. 04/07/2024 Opioid use disorder (ICD-10 - F11.99) 03/31/2024 Opioid use disorder (ICD-10 - F11.99) Duration (acute/chronic), stability (controlled/uncont rolled): Previous problem, pain medications through pain management, well controlled on Suboxone Current medications/effica cy: Yes Previous FAILED medication trials: N/A Examination [...] Consume plenty of fruits/vegetables, healthy grains/whole grains, unsaturated/health y fats (liquid at room temperature, such as [...] techniques, such as guided imagery, journaling, aromatherapy, acupuncture/acupre ssure, deep breathing, etc. Practice healthy sleep hygiene [...] Continue monitoring symptoms - report persistent or worsening/concerni ng symptoms to the office or go to the ER. For mental health CRISIS, please reach out to [phone] ([facility]), 911, go to the emergency department, or contact the [facility] Crisis Unit/Team. Follow up as scheduled or sooner if necessary. Follow up with PCP and/or other specialists as advised. NEXT STEP: 02/18/2024 Nicotine dependence, unspecified, uncomplicated (ICD-10 - F17.200) Duration (acute/chronic), stability (controlled/uncont rolled): Chronic, patient not currently taking medications for this Current medications/effica cy: N/A Previous FAILED medication trials: N/A Examination as documented - see pertinent aspects of office visit documentation. RECOMMENDATIONS: Consider substance cessation therapy as needed - contact office if desiring medication assisted therapy. Manage co-morbid conditions. Continue monitoring symptoms - report persistent or worsening/concerni ng symptoms to the office or go to the ER. For mental health CRISIS, please reach out to [phone] ([employer] [facility]), 911, go to the emergency department, or contact the [facility] Crisis Unit/Team. Follow up as scheduled or sooner if necessary. Follow up with PCP and/or other specialists as advised. 03/31/2024 Nicotine dependence, unspecified, uncomplicated (ICD-10 - F17.200) Duration (acute/chronic), stability (controlled/uncont rolled): Chronic, vapes daily, patient not currently taking medications for this Current medications/effica cy: N/A Previous FAILED medication trials: N/A Examination as documented - see pertinent aspects of office visit documentation. RECOMMENDATIONS: Consider substance cessation therapy as needed - contact office if desiring medication assisted therapy. Manage co-morbid conditions. Continue monitoring symptoms - report persistent or worsening/concerni ng symptoms to the office or go to the ER. For mental health CRISIS, please reach out to [phone] ([employer] [facility]), 911, go to the emergency department, or contact the [facility] Crisis Unit/Team. Follow up as scheduled or sooner if necessary. Follow up with PCP and/or other specialists as advised. NEXT STEP: Consider MAT as needed. 04/07/2024 Nicotine dependence, unspecified, uncomplicated (ICD-10 - F17.200) 05/18/2024 Opioid use disorder (ICD-10 - F11.99) Duration (acute/chronic), stability (controlled/uncont rolled): Previous problem, pain medications through pain management, well controlled on Suboxone Current medications/effica cy: Yes Previous FAILED medication trials: N/A Examination [...] Consume plenty of fruits/vegetables, healthy grains/whole grains, unsaturated/health y fats (liquid at room temperature, such as [...] techniques, such as guided imagery, journaling, aromatherapy, acupuncture/acupre ssure, deep breathing, etc. Practice healthy sleep hygiene [...] Continue monitoring symptoms - report persistent or worsening/concerni ng symptoms to the office or go to the ER. For mental health CRISIS, please reach out to [phone] ([facility]), 911, go to the emergency department, or contact the [facility] Crisis Unit/Team. Follow up as scheduled or sooner if necessary. Follow up with PCP and/or other specialists as advised. NEXT STEP: 04/27/2024 Opioid use disorder (ICD-10 - F11.99) Duration (acute/chronic), stability (controlled/uncont rolled): Previous problem, pain medications through pain management, well controlled on Suboxone Current medications/effica cy: Yes Previous FAILED medication trials: N/A Examination [...] Consume plenty of fruits/vegetables, healthy grains/whole grains, unsaturated/health y fats (liquid at room temperature, such as [...] techniques, such as guided imagery, journaling, aromatherapy, acupuncture/acupre ssure, deep breathing, etc. Practice healthy sleep hygiene [...] Continue monitoring symptoms - report persistent or worsening/concerni ng symptoms to the office or go to the ER. For mental health CRISIS, please reach out to [phone] ([facility]), 911, go to the emergency department, or contact the [facility] Crisis Unit/Team. Follow up as scheduled or sooner if necessary. Follow up with PCP and/or other specialists as advised. NEXT STEP: 06/17/2024 Opioid use disorder (ICD-10 - F11.99) Duration (acute/chronic), stability (controlled/uncont rolled): Previous problem, pain medications through pain management, well controlled on Suboxone Current medications/effica cy: Yes Previous FAILED medication trials: N/A Examination [...] Consume plenty of fruits/vegetables, healthy grains/whole grains, unsaturated/health y fats (liquid at room temperature, such as [...] techniques, such as guided imagery, journaling, aromatherapy, acupuncture/acupre ssure, deep breathing, etc. Practice healthy sleep hygiene [...] Continue monitoring symptoms - report persistent or worsening/concerni ng symptoms to the office or go to the ER. For mental health CRISIS, please reach out to [phone] ([facility]), 911, go to the emergency department, or contact the [facility] Crisis Unit/Team. Follow up as scheduled or sooner if necessary. Follow up with PCP and/or other specialists as advised. NEXT STEP: Will plan to have MAT clinic continue treatment for this 08/11/2024 Opioid use disorder (ICD-10 - F11.99) Duration (acute/chronic), stability (controlled/uncont rolled): Previous problem, pain medications through pain management, well controlled on Suboxone Current medications/effica cy: Yes Previous FAILED medication trials: N/A Examination [...] Consume plenty of fruits/vegetables, healthy grains/whole grains, unsaturated/health y fats (liquid at room temperature, such as [...] techniques, such as guided imagery, journaling, aromatherapy, acupuncture/acupre ssure, deep breathing, etc. Practice healthy sleep hygiene [...] Continue monitoring symptoms - report persistent or worsening/concerni ng symptoms to the office or go to the ER. For mental health CRISIS, please reach out to [phone] ([employer] [facility]), 911, go to the emergency department, or contact the [facility] Crisis Unit/Team. Follow up as scheduled or sooner if necessary. Follow up with PCP and/or other specialists as advised. NEXT STEP: Will plan to have MAT clinic continue treatment for this 07/15/2024 Opioid use disorder (ICD-10 - F11.99) Duration (acute/chronic), stability (controlled/uncont rolled): Previous problem, pain medications through pain management, well controlled on Suboxone Current medications/effica cy: Yes Previous FAILED medication trials: N/A Examination [...] Consume plenty of fruits/vegetables, healthy grains/whole grains, unsaturated/health y fats (liquid at room temperature, such as [...] techniques, such as guided imagery, journaling, aromatherapy, acupuncture/acupre ssure, deep breathing, etc. Practice healthy sleep hygiene [...] Continue monitoring symptoms - report persistent or worsening/concerni ng symptoms to the office or go to the ER. For mental health CRISIS, please reach out to [phone] ([employer] [facility]), 911, go to the emergency department, or contact the [facility] Crisis Unit/Team. Follow up as scheduled or sooner if necessary. Follow up with PCP and/or other specialists as advised. NEXT STEP: Will plan to have MAT clinic continue treatment for this 08/11/2024 Nicotine dependence, unspecified, uncomplicated (ICD-10 - F17.200) Duration (acute/chronic), stability (controlled/uncont rolled): Chronic, vapes daily, patient not currently taking medications for this Current medications/effica cy: N/A Previous FAILED medication trials: N/A Examination as documented - see pertinent aspects of office visit documentation. RECOMMENDATIONS: Consider substance cessation therapy as needed - contact office if desiring medication assisted therapy. Manage co-morbid conditions. Continue monitoring symptoms - report persistent or worsening/concerni ng symptoms to the office or go to the ER. For mental health CRISIS, please reach out to [phone] ([employer] [facility]), 911, go to the emergency department, or contact the [facility] Crisis Unit/Team. Follow up as scheduled or sooner if necessary. Follow up with PCP and/or other specialists as advised. NEXT STEP: Consider MAT as needed. 07/15/2024 Nicotine dependence, unspecified, uncomplicated (ICD-10 - F17.200) Duration (acute/chronic), stability (controlled/uncont rolled): Chronic, vapes daily, patient not currently taking medications for this Current medications/effica cy: N/A Previous FAILED medication trials: N/A Examination as documented - see pertinent aspects of office visit documentation. RECOMMENDATIONS: Consider substance cessation therapy as needed - contact office if desiring medication assisted therapy. Manage co-morbid conditions. Continue monitoring symptoms - report persistent or worsening/concerni ng symptoms to the office or go to the ER. For mental health CRISIS, please reach out to [phone] ([employer] [facility]), 911, go to the emergency department, or contact the [facility] Crisis Unit/Team. Follow up as scheduled or sooner if necessary. Follow up with PCP and/or other specialists as advised. NEXT STEP: Consider MAT as needed. 05/18/2024 Nicotine dependence, unspecified, uncomplicated (ICD-10 - F17.200) Duration (acute/chronic), stability (controlled/uncont rolled): Chronic, vapes daily, patient not currently taking medications for this Current medications/effica cy: N/A Previous FAILED medication trials: N/A Examination as documented - see pertinent aspects of office visit documentation. RECOMMENDATIONS: Consider substance cessation therapy as needed - contact office if desiring medication assisted therapy. Manage co-morbid conditions. Continue monitoring symptoms - report persistent or worsening/concerni ng symptoms to the office or go to the ER. For mental health CRISIS, please reach out to [phone] ([place] [facility]icide [facility] Crisis Lif[facility]), 911, go to the emergency department, or contact the [facility] Crisis Unit/Team. Follow up as scheduled or sooner if necessary. Follow up with PCP and/or other specialists as advised. NEXT STEP: Consider MAT as needed. 04/27/2024 Nicotine dependence, unspecified, uncomplicated (ICD-10 - F17.200) Duration (acute/chronic), stability (controlled/uncont rolled): Chronic, vapes daily, patient not currently taking medications for this Current medications/effica cy: N/A Previous FAILED medication trials: N/A Examination as documented - see pertinent aspects of office visit documentation. RECOMMENDATIONS: Consider substance cessation therapy as needed - contact office if desiring medication assisted therapy. Manage co-morbid conditions. Continue monitoring symptoms - report persistent or worsening/concerni ng symptoms to the office or go to the ER. For mental health CRISIS, please reach out to [phone] ([facility]), 911, go to the emergency department, or contact the [facility] Crisis Unit/Team. Follow up as scheduled or sooner if necessary. Follow up with PCP and/or other specialists as advised. NEXT STEP: Consider MAT as needed. 06/17/2024 Nicotine dependence, unspecified, uncomplicated (ICD-10 - F17.200) Duration (acute/chronic), stability (controlled/uncont rolled): Chronic, vapes daily, patient not currently taking medications for this Current medications/effica cy: N/A Previous FAILED medication trials: N/A Examination as documented - see pertinent aspects of office visit documentation. RECOMMENDATIONS: Consider substance cessation therapy as needed - contact office if desiring medication assisted therapy. Manage co-morbid conditions. Continue monitoring symptoms - report persistent or worsening/concerni ng symptoms to the office or go to the ER. For mental health CRISIS, please reach out to [phone] ([place] [facility]), 911, go to the emergency department, or contact the [facility] Crisis Unit/Team. Follow up as scheduled or sooner if necessary. Follow up with PCP and/or other specialists as advised. NEXT STEP: Consider MAT as needed. 02/12/2024 Other Client agrees to take medication [...] even . Patient understands that ALL treating providers/physicia ns should be informed of buprenorphine use as [...] self-administe r their own oral medications per [facility] Protocol. 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 12/05/2023-12/08/2023 12/05/2023 U 06/08/23-06/10/23 child mental illness 2020 see fareed
[2025-02-11 06:47] VITALS: BP 117/78; PULSE 86; RESP 16; TEMP 36.9; O2SAT 100; BMI 19.2
[2025-02-11] MEDS: LACTATED RINGERS 1,000 ML 150 ML IV CONT (06:54)
--- NOTE | 2025-02-11 07:00 | WPDANESEPPF ---
Anes - Initial Pre Proc Eval Procedure: Operation Date: 02/11/25 08:00 Proposed Procedures p EGD & Diagnostic Colonoscopy - Pedro Narvaez MD Date/Time: 02/11/25 07:00 Surgeon: Pedro Narvaez MD Pre Op Diagnosis: Hemorrhage of anus and rectum Patient Data Age: 34 Gender: F Height: 1.7 m Weight: 55.7 kg Last Vital Signs Temp 36.9 C 02/11/25 06:47 Pulse 86 02/11/25 06:47 Resp 16 02/11/25 06:47 BP 117/78 02/11/25 06:47 Pulse Ox 100 02/11/25 06:47 O2 Del Method Room Air 02/11/25 06:47 Allergies Allergy/AdvReac Type Severity Reaction Status Date / Time sumatriptan Allergy Unknown SOB, CHEST Verified 02/11/25 06:43 PRESSURE Home Medications ?Medication ?Instructions ?Recorded ?Confirmed ?Type alprazolam 1 mg tablet 1 mg PO TID PRN Anxiety 05/14/22 02/11/25 History escitalopram oxalate 20 mg tablet 20 mg PO DAILY 05/14/22 02/11/25 History (Lexapro) lamotrigine 200 mg tablet 200 mg PO BID 05/14/22 02/11/25 History (Lamictal) tizanidine 4 mg capsule 4 mg PO QHS PRN muscle spasms 05/14/22 02/11/25 History rizatriptan 5 mg tablet 5 mg PO DAILY PRN migraines 01/23/24 02/11/25 History fluconazole 150 mg tablet 150 mg PO WEEKLY 1 month #5 tabs 09/21/24 02/11/25 Rx lumateperone 42 mg capsule 42 mg PO DAILY 09/21/24 02/11/25 History (Caplyta) omeprazole 40 mg capsule,delayed 40 mg PO DAILY #30 caps 11/29/24 02/11/25 Rx release dexmethylphenidate 10 mg 10 mg PO DAILY 12/22/24 02/11/25 History capsule,extended release [id number] (Focalin XR) promethazine 25 mg tablet See Rx Instructions .Route 12/28/24 02/11/25 Rx .COMPLEX #60 tabs buprenorphine 8 mg-naloxone 2 mg 0.5 film buccal DAILY 01/27/25 02/11/25 History sublingual film (Suboxone) doxazosin 2 mg tablet 2 mg PO QPM 01/27/25 02/11/25 History linaclotide 290 mcg capsule 290 mcg PO WEEKLY 01/27/25 01/27/25 History (Linzess) Patient hx anesthesia problems: none Family hx anesthesia problems: none Results Review: All pre-operative results and documents have been reviewed as part of the pre-operative evaluation. [facility] Past Medical History Medical History (Updated 12/23/24 @ 12:18 by DOMENICO Munson) HSV-1 infection Encounter for screening examination for sexually transmitted disease delivery delivered Pseudotumor cerebri Pseudotumor cerebri PTSD (post-traumatic stress disorder) Bipolar disorder Anxiety Depression Surgical History Surgical History H/O dilation and curettage H/O brain surgery H/O: hysterectomy Family History Family History Other Depression Social History Social History Years smoked: 10 Smoking status: Current every day smoker Tobacco type: e-cigarettes/vaping Alcohol intake: never Substance use: former Substance use type: does not use Do You Feel Safe in your Home?: Yes Lack of Transportation: No Lack of Food: Never True Current Housing: I Have Housing Concerned About Future Housing: No Difficulty Paying Gas/Electric Bills: No Difficulty Paying for Meds: No Currently Unemployed: No Education: High School Diploma/GED Difficulty w/ Childcare or Family Care: No Living arrangements: with family Additional living arrangements comments: with sp Occupation/Education: unemployed Gender identity (if verbalized by the patient): Female Sexual Orientation (if Verbalized by the Patient): Straight or Heterosexual Anes - Eval Final PreProcedure Day of Procedure 02/11/25 07:00 Patient weight: normal Heart: regular rate and rhythm Lungs: clear to auscultation and normal air movement Airway: Mallampati scale class II Neurological: alert and oriented Last oral intake: >/= 8 hours ASA classification: III Emergent: no Anesthetic plan: proceed Anesthesia type and monitoring: general GIVS and standard monitoring Results Review: All pre-operative results and documents have been reviewed as part of the pre-operative evaluation. Informed Consent: The patient's anesthetic plan and its attendant risks and benefits were discussed with the patient/family/POA. Questions were solicited and answers provided to the satisfaction of the patient/family/POA.
--- NOTE | 2025-02-11 07:50 | PM.HPGS ---
History of Present Illness History of Present Illness Consent: Risks, benefits, and alternatives have been discussed and questions answered. Patient agrees to proceed with procedure. Chief complaint: Hemorrhage of anus and rectum Narrative: Alba Olvera is a 34 year old female here for egd and colonoscopy, had episode of rectal bleeding with upper abdominal pain, also constipation on linzess Review of Systems Review of Systems: All systems reviewed & are unremarkable except as noted in HPI and below PMFSH Past Medical History Medical History (Updated 02/11/25 @ 07:50 by Pedro Narvaez MD) Abdominal pain HSV-1 infection Encounter for screening examination for sexually transmitted disease delivery delivered Pseudotumor cerebri Pseudotumor cerebri PTSD (post-traumatic stress disorder) Bipolar disorder Anxiety Depression Surgical History Surgical History H/O dilation and curettage H/O brain surgery H/O: hysterectomy Family History Family History Other Depression Social History Social History Years smoked: 10 Smoking status: Current every day smoker Tobacco type: e-cigarettes/vaping Alcohol intake: never Substance use: former Substance use type: does not use Do You Feel Safe in your Home?: Yes Lack of Transportation: No Lack of Food: Never True Current Housing: I Have Housing Concerned About Future Housing: No Difficulty Paying Gas/Electric Bills: No Difficulty Paying for Meds: No Currently Unemployed: No Education: High School Diploma/GED Difficulty w/ Childcare or Family Care: No Living arrangements: with family Additional living arrangements comments: with sp Occupation/Education: unemployed Gender identity (if verbalized by the patient): Female Sexual Orientation (if Verbalized by the Patient): Straight or Heterosexual Meds Home Medications and Allergies Home Medications ?Medication ?Instructions ?Recorded ?Confirmed ?Type alprazolam 1 mg tablet 1 mg PO TID PRN Anxiety 05/14/22 02/11/25 History escitalopram oxalate 20 mg tablet 20 mg PO DAILY 05/14/22 02/11/25 History (Lexapro) lamotrigine 200 mg tablet 200 mg PO BID 05/14/22 02/11/25 History (Lamictal) tizanidine 4 mg capsule 4 mg PO QHS PRN muscle spasms 05/14/22 02/11/25 History rizatriptan 5 mg tablet 5 mg PO DAILY PRN migraines 01/23/24 02/11/25 History fluconazole 150 mg tablet 150 mg PO WEEKLY 1 month #5 tabs 09/21/24 02/11/25 Rx lumateperone 42 mg capsule 42 mg PO DAILY 09/21/24 02/11/25 History (Caplyta) omeprazole 40 mg capsule,delayed 40 mg PO DAILY #30 caps 11/29/24 02/11/25 Rx release dexmethylphenidate 10 mg 10 mg PO DAILY 12/22/24 02/11/25 History capsule,extended release [id number] (Focalin XR) promethazine 25 mg tablet See Rx Instructions .Route 12/28/24 02/11/25 Rx .COMPLEX #60 tabs buprenorphine 8 mg-naloxone 2 mg 0.5 film buccal DAILY 01/27/25 02/11/25 History sublingual film (Suboxone) doxazosin 2 mg tablet 2 mg PO QPM 01/27/25 02/11/25 History linaclotide 290 mcg capsule 290 mcg PO WEEKLY 01/27/25 01/27/25 History (Linzess) Allergies Allergy/AdvReac Type Severity Reaction Status Date / Time sumatriptan Allergy Unknown SOB, CHEST Verified 02/11/25 06:43 PRESSURE Vital Signs Vital Signs - 24 hr 02/11/25 06:47 Temperature 98.4 F Pulse Rate 86 Respiratory Rate 16 Blood Pressure 117/78 Pulse Oximetry 100 Oxygen Delivery Room Air Exam Const: General: comfortable and no acute distress HENMT: Face/Nose/Sinus: Normal nares present Eyes: General: appearance normal, both eyes and all related structures Neck: Neck: no JVD Resp: Auscultation: clear to auscultation bilaterally Cardio: Rate: regular rate Rhythm: regular rhythm GI: Inspection: non-distended GI Palp: Yes Soft to palpation Skin: General skin exam: normal color Neuro: Speech: normal speech Extrem: General: normal to inspection Psych: Mental Status: mental status grossly normal Assessment and Plan Assessment and plan (1) Chronic constipation: Code(s): K59.09 - Other constipation Status: Acute Assessment and Plan: colonoscopy (2) Abdominal pain: Code(s): R10.9 - Unspecified abdominal pain Status: Acute Assessment and Plan: egd
--- NOTE | 2025-02-11 07:55 | S_PTH ---
PATIENT: Alba Olvera LOC: [facility]#:[id number] AGE/SX: 34/F ROOM: RE02/11/[address]: Pedro Narvaez MD : 1990 BED: DIS: 02/11/2025 SPEC #: [id number] RECD: 02/11/25 10:57 STATUS: KEKE ANNE #: [id number] SHANON: 02/11/25 07:[address]: Pedro Narvaez DEPT: [facility] Surgical RECD BY: Karina Crowe ENTERED: 02/11/25 10:57 SP TYPE: Surgical OTHR DR: Yane Estrada, STAFF OCCUPATIONAL THERAPIST Tissues: A - Gastric Biopsy B - Small Bowel Bx Procedures: Hematoxylin and Eosin Stain Gross and Microscopic Level 4
--- NOTE | 2025-02-11 07:55 | SUR.OPER ---
EGD:[id number] COLON: [id number]
[2025-02-11 08:12] VITALS: BP 102/58; PULSE 78; RESP 20; O2SAT 100
[2025-02-11 08:22] VITALS: BP 103/60; PULSE 76; RESP 21; O2SAT 100
[2025-02-11 08:32] VITALS: BP 112/68; PULSE 74; RESP 20; O2SAT 100
== END 2025-02-11 08:37 | disposition home or self-care (01) ==
PROVIDERS: PCP Nurse Practitioner Family; Referring Provider Nurse Practitioner Family; Visit Provider Internal Medicine Gastroenterology
PROC: 0DJ08ZZ Inspection of Upper Intestinal Tract, Via Natural or Artificial Opening Endoscopic (ICD-10-PCS; CPT 45378; principal; 2025-02-11 08:00)
DX: K64.8 Other hemorrhoids (principal); K31.89 Other diseases of stomach and duodenum; F43.10 Post-traumatic stress disorder, unspecified; F41.9 Anxiety disorder, unspecified; F32.A Depression, unspecified; F17.290 Nicotine dependence, other tobacco product, uncomplicated; Z98.890 Other specified postprocedural states
CPT/HCPCS: 43239; 45378; 88305; J2704; J7120

== ENCOUNTER 2025-05-20 10:59 | Outpatient (CLI) | payer OTHER, SELFPAY ==
--- NOTE | ~2025-05-20 | US_ITS ---
EXAMINATION: US breast LT limited INDICATION: 35-year old female; BI-RADS 3, short-term follow-up probably benign mass at 1:00 position. Patient's palpable lump has resolved in the interval. COMPARISON: 10/11/2024 TECHNIQUE: Targeted sonographic evaluation of the probably benign finding in the LEFT breast was completed. FINDINGS: An area of dense breast tissue at 1:00 location 8 cm from the nipple in the LEFT breast which correlates to the area of concern redemonstrated is unchanged. IMPRESSION: Benign LEFT breast finding compatible with dense fibroglandular tissue. RECOMMENDATION: Clinical management of any palpable lump in the left breast. BI-RADS 2, BENIGN Reviewed, dictated and finalized at location A. MACHINE TENDER
--- OUTSIDE RECORDS SUMMARY | 2025-05-20 11:31 | XMS_ITS | Clinical Summary ---
Author Organization [facility] Address [address] [address] Care Team Providers Care [employer] Name Role Phone Yane EstradaAGRICULTURAL ADVISER Primary Care Provider [phone]- [phone] Source Comments [facility] [employer],non-owned Affiliates and Associated Physician Practices is amultiple site organization consisting of ambulatory clinics and hospital sitesin [place], [place], [place] and [place]. This disclosure is being madepursuant to the Care Everywhere program and may not contain all information available regarding this patient. Last updated 18.[facility] [employer] Allergies Active Allergy Reactions Criticality Noted Date Comments Sumatriptan 12/24/2016 Medications * This document contains information received from the source organization and may not represent a complete record from that organization. * Be aware that medications may not be up to date on this document. Alwaysverify current medications with the patient. escitalopram (Lexapro) 20 MG tablet Take 1 (one) tablet by mouth once daily 30 tablet 07/05/2023 Active lamoTRIgine (LaMICtal) 200 MG tablet Take 1 (one) tablet by mouth 2 times daily Active ALPRAZolam (Xanax) 1 MG tablet Take 0.5 (one-half) tablet by mouth 3 times daily 02/10/2025 Active valACYclovir (Valtrex) 500 MG tablet Take 1 (one) tablet by mouth 2 times daily Active tiZANidine (Zanaflex) 4 MG tablet Take 1 (one) tablet by mouth every 8 hours as needed Active tretinoin (Retin-A) 0.1 % cream Apply to affected area once daily Active doxazosin (Cardura) 2 MG tablet Take 1 (one) tablet by mouth at bedtime 01/17/2025 Active Suboxone 8-2 MG strip Dissolve 4 mg under the tongue once daily 12/08/2023 Active Focalin XR 10 MG capsule Take 1 (one) capsule by mouth every morning 02/10/2025 Active linaCLOtide (Linzess) 290 MCG capsule Take 1 (one) capsule by mouth once daily 09/11/2022 Active Caplyta 42 MG capsule Take 1 (one) capsule by mouth daily with food 01/06/2024 Active omeprazole (PriLOSEC) 40 MG capsule Take 1 (one) capsule by mouth once daily 12/28/2024 Active rizatriptan, disintegrating, (Maxalt SALES CONSULTANT) 10 MG tablet Take 1 (one) tablet by mouth once as needed for Migraine Active Active Problems Problem Noted Date Diagnosed Date Depression, unspecified depression type 07/02/19 Intentional overdose, initial encounter 07/02/19 24 Suicidal ideation 06/26/2021 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 8 Overview (11/17/2018): 10/21/17 Strata valve @ 0.5 jw 11/17/18 Strata valve @ 0.5 JW Encounters Date Type Department Care Team Description 04/29/2025 Telephone [facility] - Ophthalmology [facility] [place] [address] Jb Moss MD Appointment 04/27/2025 11:07 AM RISK CONTROL FIELD REPRESENTATIVE - 04/27/2025 4:45 PM [facility] Emergency [facility] EMERGENCY DEPARTMENT [address] [place] [address] Jaylen Han DO Transient alteration of awareness; Anemia, unspecified type; Decreased serum protein level Discharge Disposition: Home or Self Care 04/27/2025 Ophth Exam [facility] - Ophthalmology [address] [place] [address] Agustín Mccarty MD 04/27/2025 Travel 04/07/2025 Travel from Last 3 Months Family History Medical History Relation Name Comments Hypertension Brother Hypertension Father Seizures Father Hypertension Mother Relation Name Status Comments Brother Alive Father Alive Mother Alive Social History Tobacco Use Types Packs/Day Years Used Date Smoking Tobacco: Former Cigarettes Smokeless Tobacco: Never Tobacco Cessation:Counseling Given: No Comments:vape Alcohol Use Standard Drinks/Week Comments Not Currently 0 (1 standard drink = 0.6 oz pur e alcohol) AUDIT-C Answer Date Recorded Q1: How often [...] and heating? Not hard at all 07/03/2023 [facility] - [facility]ational [...] place to sleep or slept in a long term (including now)? No 07/03/2023 Comments No Sex and Gender Information Value Date Recorded Sex Assigned at Not on file Legal Sex Female 5:10 PM CDT Gender Identity Not on file Sexual Orientation Not on file Last Filed Vital Signs Vital Sign Reading Time Taken Comments Blood Pressure 122/73 04/27/2025 2:58 PM RISK CONTROL FIELD REPRESENTATIVE Pulse 71 04/27/2025 2:58 PM RISK CONTROL FIELD REPRESENTATIVE Temperature 36.4 C (97.5 F) 04/27/2025 10:53 AM RISK CONTROL FIELD REPRESENTATIVE Respiratory Rate 16 04/27/2025 10:53 AM RISK CONTROL FIELD REPRESENTATIVE Oxygen Saturation 96% 04/27/2025 2:58 PM RISK CONTROL FIELD REPRESENTATIVE Inhaled Oxygen Concentration - - Weight 59 kg (130 lb) 04/27/2025 10:53 AM RISK CONTROL FIELD REPRESENTATIVE Height 170.2 cm (5' 7) 04/27/2025 10:53 AM RISK CONTROL FIELD REPRESENTATIVE Body Mass Index 20.36 04/27/2025 10:53 AM RISK CONTROL FIELD REPRESENTATIVE Plan of Treatment Upcoming Encounters Date Type Department Care Team (Late st Contact Info) Description 06/17/2025 8:00 AM RISK CONTROL FIELD REPRESENTATIVE Office Visit [facility] - Neurology [address] [place] [address], [place] [address] Javi Watson, VENETIAN BLIND WASHER-AGRICULTURAL ADVISER [address] [place] [address] [place] [address] Health Maintenance Due Date Last Done Comments HIV SCREENING 2004 HEPATITIS C SCREENING 03/29/2007 DTAP/TDAP/TD VACCINES (1 - Tdap) 2008 HEPATITIS B VACCINE (1 of 3 - 19+ 3-dose series) 2008 PAP SMEAR 2010 HPV VACCINE (1 - 3-dose SCDM series) 2016 DEPRESSION SCREENING 06/02/2024 COVID-19 VACCINE (1 - 2024- season) 2025 INFLUENZA VACCINE (#1) 2025 3, [...] on patient's age to complete this topic Procedures Procedure Name Priority Date/Time Associated Diagnosis Comments CARDIAC EKG ORDER 04/28/2025 10: 17 AM RISK CONTROL FIELD REPRESENTATIVE TROPONIN-I HIGH SENSITIVE REFLEX 1HOUR Timed 04/27/2025 2:44 PM RISK CONTROL FIELD REPRESENTATIVE TROPONIN-I HIGH SENSITIVE BASELINE + 1HR STAT 04/27/2025 12:50 PM RISK CONTROL FIELD REPRESENTATIVE COMPREHENSIVE METABOLIC PANEL STAT 04/27/2025 12:50 PM RISK CONTROL FIELD REPRESENTATIVE CBC W AUTO DIFFERENTIAL STAT 04/27/2025 12:50 PM RISK CONTROL FIELD REPRESENTATIVE EKG 12-LEAD Routine 04/27/2025 12:40 PM RISK CONTROL FIELD REPRESENTATIVE Transient alteration of awareness CT HEAD WO CONTRAST STAT 04/27/2025 1 2:35 PM RISK CONTROL FIELD REPRESENTATIVE Transient alteration of awareness XR SHUNT SERIES STAT 04/27/2025 11:48 AM RISK CONTROL FIELD REPRESENTATIVE Transient alteration of awareness from Last 3 Months Results * CARDIAC EKG ORDER (04/28/2025 10:17 AM RISK CONTROL FIELD REPRESENTATIVE) Narrative 04/28/2025 10:17 AM RISK CONTROL FIELD REPRESENTATIVE Ordered by an unspecified provider. us Scanned Document CARDIAC SERVICES ORDERABLES Fin al Result * TROPONIN-I HIGH SENSITIVE REFLEX 1HOUR (04/27/2025 2:44 PM RISK CONTROL FIELD REPRESENTATIVE) Troponin I High Sensitive <3 <=14 ng/L 04/27/2025 3:29 PM RISK CONTROL FIELD REPRESENTATIVE [facility] Delta Troponin I HS 04/27/2025 3:29 PM [facility] Comment:Delta value intentio doron not calculated. Baseline to 1 hour specimen collection interval exceeded. Blood BLOOD SPECIMEN / Unknown Venipuncture / Unknown 04/27/2025 2:44 PM RISK CONTROL FIELD REPRESENTATIVE 04/27/2025 2:53 PM RISK CONTROL FIELD REPRESENTATIVE [facility] Delver DO LAB - CHEMISTRY ORDERABLES F inal Result Performing Organization Address [facility]/ZIP Co de Phone Number [address] [address], [facility] [phone] * TROPONIN-I HIGH SENSITIVE BASELINE + 1HR (04/27/2025 12:50 PM RISK CONTROL FIELD REPRESENTATIVE) [facility] Troponin I High Sensitive <3 <=14 ng/L 04/27/2025 1:38 PM [facility] Blood BLOOD SPECIMEN / Unknown Venipuncture / Unknown 04/27/2025 12:50 PM RISK CONTROL FIELD REPRESENTATIVE 04/27/2025 12:59 PM RISK CONTROL FIELD REPRESENTATIVE [facility] Delver DO LAB - CHEMISTRY ORDERABLES F inal Result Performing Organization Address [facility] de Phone Number [address] [address], [facility] [phone] * (ABNORMAL) CBC W AUTO DIFFERENTIAL (04/27/2025 12:50 PM RISK CONTROL FIELD REPRESENTATIVE) [facility] WBC 3.9(L) 4.0 - 10.7 x10E9/L 04/27/2025 1:06 PM [facility] RBC Count 3.80(L) 3.90 - 5.20 x10E12/L 04/27/2025 1:06 PM [facility] Hemoglobin 11.7(L) 11.9 - 15.8 g/dL 04/27/2025 1:06 PM [facility] Hematocrit 34.0(L) 34.8 - 46.1 % 04/27/2025 1:06 PM [facility] MCV 89.5 80.0 - 98.0 fL 04/27/2025 1:06 PM [facility] MCH 30.8 26.7 - 33.6 pg 04/27/2025 1:06 PM [facility] MCHC 34.4 31.7 - 36.3 g/dL 04/27/2025 1:06 PM [facility] RDW-CV 11.7 11.3 - 14.8 % 04/27/2025 1:06 PM [facility] Platelet Count 168 150 - 420 x10E9/L 04/27/2025 1:06 PM [facility] MPV 9.8 7.8 - 11.4 fL 04/27/2025 1:06 PM [facility] Neutrophil % 56.1 41.0 - 74.0 % 04/27/2025 1:06 PM [facility] Lymphocyte % 31.1 17.0 - 47.0 % 04/27/2025 1:06 PM [facility] Monocyte % 8.9 3.0 - 11.0 % 04/27/2025 1:06 PM [facility] Eosinophil % 2.6 0.0 - 7.0 % 04/27/2025 1:06 PM [facility] Basophil % 1.0 0.0 - 1.6 % 04/27/2025 1:06 PM [facility] Immature Granulocytes % 0.3 0.0 - 1.0 % 04/27/2025 1:06 PM [facility] Neutrophil Absolute 2.20 1.60 - 7.50 x10E9/L 04/27/2025 1:06 PM [facility] Lymphocyte Absolute 1.22 1.00 - 4.40 x10E9/L 04/27/2025 1:06 PM [facility] Monocyte Absolute 0.35 0.15 - 1.00 x10E9/L 04/27/2025 1:06 PM [facility] Eosinophil Absolute 0.10 0.00 - 0.60 x10E9/L 04/27/2025 1:06 PM [facility] Basophil Absolute 0.04 0.00 - 0.13 x10E9/L 04/27/2025 1:06 PM [facility] Blood BLOOD SPECIMEN / Unknown Venipuncture / Unknown 04/27/2025 12:50 PM RISK CONTROL FIELD REPRESENTATIVE 04/27/2025 12:59 PM RISK CONTROL FIELD REPRESENTATIVE us Jaylen Han DO LAB - HEMATOLOGY ORDERABLES Final Result [facility] [address] [place] [address], [facility] [phone] * (ABNORMAL) COMPREHENSIVE METABOLIC PANEL (04/27/2025 12:50 PM RISK CONTROL FIELD REPRESENTATIVE) BUN 7 7 - 26 mg/dL 04/27/2025 1:34 PM [facility] Creatinine 0.72 0.56 - 0.96 mg/dL 04/27/2025 1:34 PM [facility] Sodium 140 136 - 145 mmol/L 04/27/2025 1:34 PM [facility] Potassium 4.1 3.5 - 4.5 mmol/L 04/27/2025 1:34 PM [facility] Chloride 105 98 - 107 mmol/L 04/27/2025 1:34 PM [facility] CO2 30(H) 22 - 29 mmol/L 04/27/2025 1:34 PM [facility] Glucose 84 70 - 99 mg/dL 04/27/2025 1:34 PM [facility] Calcium 9.1 8.4 - 10.2 mg/dL 04/27/2025 1:34 PM [facility] Protein Total 5.7(L) 6.0 - 8.3 g/dL 04/27/2025 1:34 PM [facility] Albumin 3.8 3.4 - 5.0 g/dL 04/27/2025 1:34 PM [facility] Bilirubin Total 0.3 0.2 - 1.2 mg/dL 04/27/2025 1:34 PM [facility] Alkaline Phosphatase 37(L) 40 - 150 U/L 04/27/2025 1:34 PM [facility] ALT 12 5 - 55 U/L 04/27/2025 1:34 PM [facility] AST 16 5 - 34 U/L 04/27/2025 1:34 PM [facility] Anion Gap 5(L) 6 - 16 04/27/2025 1:34 PM [facility] BUN/Creatinine Ratio 10 7 - 23 04/27/2025 1:34 PM [facility] Osmolality Calculated 287 275 - 295 mOsm/kg 04/27/2025 1:34 PM [facility] Albumin/Globulin Ratio 2.0 1.1 - 2.3 04/27/2025 1:34 PM [facility] eGFR by CKD-EPI >90 >=90 mL/min/1.7 3 m2 04/27/2025 1:34 PM [facility] Comment:Estimated Glomerular Filtration Rate (eGFR) calculated using the CKD-EPI Creatinine Equation (2020), per the National Kidney Foundation and [place] [employer]ph[employer] recommendations. Blood BLOOD SPECIMEN / Unknown Venipuncture / Unknown 04/27/2025 12:50 PM RISK CONTROL FIELD REPRESENTATIVE 04/27/2025 12:59 PM RISK CONTROL FIELD REPRESENTATIVE Jaylen Han DO LAB - CHEMISTRY ORDERABLES F inal Result [facility] [address] [place] [address], [facility] [phone] * EKG 12-Lead (04/27/2025 12:40 PM RISK CONTROL FIELD REPRESENTATIVE) Pathologist [facility] Ventricular Rate 91 BPM SL MUSE Atrial Rate 91 BPM [facility] MUSE P-R Interval 146 ms [facility] MUSE QRS Duration ms 84 ms [facility] MUSE Q-T Interval ms 368 ms [facility] MUSE QTC Calculation (Bezet) 452 ms [facility] MUSE Calculated P [place] 67 degrees [facility] MUSE Calculated R [place] 60 degrees [facility] MUSE Calculated T [place] 46 degrees [facility] MUSE Interpretation EKG NORMAL SINUS RHYTHM NORMAL ECG WHEN COMPARED WITH ECG OF 02-JUL-2023 21:49, NO SIGNIFICANT CHANGE WAS FOUND Confirmed by BETH TOM DO ([id number]) on 04/30/2025 2:35:04 PM [facility] MUSE 04/27/2025 12:4 0 PM RISK CONTROL FIELD REPRESENTATIVE 04/30/2025 2:35 PM RISK CONTROL FIELD REPRESENTATIVE Jaylen Han DO ECG ORDERABLES Edited Resul t - Final [facility] MUSE * CT Head Wo Contrast (04/27/2025 12:35 PM RISK CONTROL FIELD REPRESENTATIVE) Anatomical Region Laterality Modality Head Computed Tomogra phy 04/27/2025 12:4 0 PM RISK CONTROL FIELD REPRESENTATIVE Impressions 04/27/2025 12:41 PM RISK CONTROL FIELD REPRESENTATIVE IMPRESSION: 1. No acute intracranial process. 2. Unchanged position of a right frontal approach intraperitoneal shunt terminating in the decompressed left lateral ventricle with unchanged caliber of the ventricular system. 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 CONTRAST: COMPARISON: 02/15/2025. FINDINGS: Unchanged position of a right frontal approach intraperitoneal shunt terminating in the decompressed left lateral ventricle with unchanged caliber of the ventricular system. No acute intracranial hemorrhage or intra- or extra-axial fluid collections are identified. The ventricles are of normal size, shape, and morphology. The basal cisterns are patent. No mass effect or midline shift is seen. The carnes-white matter differentiation is normal. The visualized portions of the orbits, paranasal sinuses, and mastoids appear normal. No acute calvarial fracture is identified. 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 CONTRAST: COMPARISON: 02/15/2025. FINDINGS: Unchanged position of a right frontal approach intraperitoneal shunt terminating in the decompressed left lateral ventricle with unchanged caliber of the ventricular system. No acute intracranial hemorrhage or intra- or extra-axial fluidcollections are identified. The ventricles are of normal size, shape, andmorphology. The basal cisterns are patent. No mass effect or midline shift is seen.The carnes-white matter differentiation is normal. The visualized portions of the orbits, paranasal sinuses, and mastoids appear normal. No acute calvarial fracture is identified. IMPRESSION: 1. No acute intracranial process. 2. Unchanged position of a right frontal approach intraperitoneal shunt terminating in the decompressed left lateral ventricle with unchanged caliber of the ventricular system. > Interpreting Provider: Hugo Mackay MD on 04/27/2025 12:41 PM Jaylen Han DO CT ORDERABLES Final Result * XR Shunt Series (04/27/2025 11:48 AM RISK CONTROL FIELD REPRESENTATIVE) Anatomical Region Laterality Modality Abdomen, Pelvis Digital Radiogra phy 04/27/2025 11:5 3 AM RISK CONTROL FIELD REPRESENTATIVE Impressions 04/27/2025 12:37 PM RISK CONTROL FIELD REPRESENTATIVE IMPRESSION: Intact right ventriculoperitoneal shunt. > Dictated by Joana East MD, president & ceo [employer]. > Dictated by Joana East 04/27/2025 11:53 AM > Dictated by Computed Tomography Technologist I, Nichole Espinal MD have personally reviewed and interpreted this examination/study. > Interpreting Provider: Nichole Espinal MD on 04/27/2025 12:37 PM Narrative 04/27/2025 12:37 PM RISK CONTROL FIELD REPRESENTATIVE PROCEDURE: XR SHUNT SERIES DATE/TIME OF EXAM: 04/27/2025 11:48 AM CLINICAL INFORMATION: None relevant/not provided if blank. Indication: R40.4: Transient alteration of awareness Additional History: COMPARISON: CT head 02/15/2025 FINDINGS: Findings: A right frontoparietal approach ventriculoperitoneal shunt has its intracranial tip terminating in the midline. The shunt exits through a right frontoparietal theresa hole and courses through the soft tissues of the right neck, right chest, becoming midline in the abdominal wall, then into the left pelvis. It is coiled within the pelvis. No shunt discontinuity is seen. A radiolucent valve is noted at the proximal portion just external to the calvarium. No acute abnormality is seen in the chest or abdomen. Procedure Note Nichole Espinal MD - 04/27/2025 PROCEDURE: XR SHUNT SERIES DATE/TIME OF EXAM: 04/27/2025 11:48 AM CLINICAL INFORMATION: None relevant/not provided if blank. Indication: R40.4: Transient alteration of awareness Additional History: COMPARISON: CT head 02/15/2025 FINDINGS: Findings: A right frontoparietal approach ventriculoperitoneal shunt has its intracranial tip terminating in the midline. The shunt exits through a right frontoparietal theresa hole and courses through the soft tissues ofthe right neck, right chest, becoming midline in the abdominal wall, theninto the left pelvis. It is coiled within the pelvis. No shunt discontinuityis seen. A radiolucent valve is noted at the proximal portion just externalto the calvarium. No acute abnormality is seen in the chest or abdomen. IMPRESSION: Intact right ventriculoperitoneal shunt. > Dictated by Joana East MD, president & ceo [employer]. > Dictated by Joana East 04/27/2025 11:53 AM > Dictated by Computed Tomography Technologist I, Nichole Espinal MD have personally reviewed and interpreted this examination/study. > Interpreting Provider: Nichole Espinal MD on 04/27/2025 12:37 PM Jaylen Han DO DIAGNOSTIC IMAGING ORDERABLE S Final Result from Last 3 Months Insurance [facility] Advance Directives * Full Code (Latest Code Status on File) Date Activated Date Inactivated Comments 07/02/2023 7:43 PM 07/04/2023 1:31 PM * Full Code Date Activated Date Inactivated Comments 06/26/2021 2:38 AM 06/28/2021 3:22 PM Care Teams [employer] Relationship Specialty Start Date End Date [place] [address] PCP - General Family Medicine 02/08/25
--- OUTSIDE RECORDS SUMMARY | 2025-05-20 11:31 | XMS_ITS | Clinical Summary ---
Author Organization [facility] Address [address] [place] [address] Care Team Providers Care Handle Machine Operator Name Role Phone Socorro Patel MD Primary Care Provider [phone] Social History Tobacco Use Types Packs/Day Years [...] Cancer Screening with HPV 2019 COVID-19 Vaccine (2024-2 6 season) 2025 Influenza Adult (#1) 2025 Hepatitis A Vaccines Aged Out No long er eligible based [...] age to complete this topic Care Teams Handle Machine Operator Relationship Specialty Start Date End Date Socorro Patel MD [address] [place] [address] [place] [address] [facility] - General 12/14/13
--- OUTSIDE RECORDS SUMMARY | 2025-05-20 11:31 | XMS_ITS | Patient Health Record ---
Author Organization [facility] Address [address] [place] [address] Phone [phone] Care Team Providers Care Light Equipment Operator Name Role Phone Bean Haro APRN Primary Care Provider Sherman Cabrera Unavailable [phone] Guerline Cooper Unavailable Allergies Allergen (clinical drug ingredient) Drug/Non Drug Allergy documented on EMR Reaction Allergy Type Onset Date Status No Known Drug Allergy Unknown Drug Allergy Active Results Component Value Reference Range Flag Notes 12 Panel Urine Drug Screen Order date: 07/19/2024 Reviewed date:07/19/2024 02:48:58 PM Interpretation: Performing Lab: Notes/Report: THC neg FELICITA neg MOP (OPI) neg AMP neg MET neg BAR neg BZO POS MDMA neg MTD neg OXY neg PCP neg BUP POS Buprenorphine and Metabolite (Urine test) Order date: 06/15/2024 Reviewed date:06/22/2024 07:46:45 PM Interpretation: Performing Lab:[facility], [address], [place], Phone - [phone], Director - PhDAbudu Notes/Report: Clinical Information:CCU:[id number] LM Buprenorphine Positive A Confirmatio n performed by Mass Spectrometry Buprenorphine Positive A Buprenorphine Conf, MS, UR 138 Cutoff=10 ng/mL Norbuprenorphine Positive A Norbuprenorphine Conf, MS, UR 215 Cutoff=10 ng/mL 12 Panel Urine Drug Screen Order date: 08/19/2024 Reviewed date:08/19/2024 09:10:35 AM Interpretation: Performing Lab: Notes/Report: THC neg FELICITA neg MOP (OPI) neg AMP neg MET neg BAR neg BZO POS MDMA neg MTD neg OXY neg PCP neg BUP POS 12 Panel Urine Drug Screen Order date: 06/15/2024 Reviewed date:06/15/2024 02:49:08 PM Interpretation: Performing Lab: Notes/Report: THC neg FELICITA neg MOP (OPI) neg AMP neg MET neg BAR neg BZO POS MDMA neg MTD neg OXY neg PCP neg BUP POS Reason For Referral No Information Medications Medication SIG (Take, Route, Frequency, Duration) Notes Start Date End Date Diagnosis (ICD Code) Status Buprenorphine HCl-Naloxone HCl 8-2 MG Film 1 film under the tongue and allow to dissolve Sublingual three times a day 08/19/2024 Opioid use disorder (ICD_10 - F11.99) Active Lexapro 20 MG Tablet 1 tablet Orally Once a day; Duration: 30 days Bipolar II disorder (ICD_10 - F31.81) Active lamoTRIgine 200 MG Tablet 1 tablet Orally Twice a day; Duration: 30 days Bipolar II disorder (ICD_10 - F31.81) Active Rizatriptan Benzoate 10 MG Tablet Disintegrating Oral; Duration: 12 Days Active Promethazine HCl 25 MG Tablet Oral; Duration: 10 Days Active tiZANidine HCl 4 MG Tablet 1 tablet at bedtime as needed Orally Once a day Active Propranolol HCl ER 80 MG Capsule Extended Release 24 Hour 1 capsule Orally Once a day; Duration: 30 days Bipolar II disorder (ICD_10 - F31.81) Active Eszopiclone 2 MG Tablet 1 tablet Orally once daily at bedtime as needed for sleep 08/11/2024 Bipolar II disorder (ICD_10 - F31.81) Active busPIRone HCl 30 MG Tablet 1.5 tablets (45mg) twice daily Orally Bipolar II disorder (ICD_10 - F31.81) Active ALPRAZolam 1 MG Tablet 0.5 tablet in the AM, 0.5-1 tablet in the afternoon, and 0.25-5 tablet in the evening Oral; Duration: 30 days As needed for anxiety 08/20/2024 Bipolar II disorder (ICD_10 - F31.81) Active Caplyta 42 MG Capsule 1 capsule Orally Once a day; Duration: 30 days Bipolar II disorder (ICD_10 - F31.81) Active Doxazosin Mesylate 4 MG Tablet 1 tablet Oral once daily at bedtime for PTSD/nightmares; Duration: 30 days Trauma and stressor-relate d disorder (ICD_10 - F43.9) Active Social History Tobacco Use: Social History Observation Description Date Details (start date - stop date) Never Smoker NA - NA Sex Observation Social History Observation Description Sex Observation Female Sexual Orientation Social History Observation Description Sexual Orientation Straight or heterose xual Gender Identity Social History Observation Description Gender Identity Female SDOH Assessments Date Tool Assessment Assessment LOINC Value Assessment Notes Goals Interventions 07/19/19 25 PRAPARE (LOINC: 26519-2) Total Score: 5 Date Completed/Upda chris: 01/13/20 24 What is your current housing situation? 99276-7 I have housing (OE10268-1) Are you worried about losing your housing? 34841-0 No (LA32-8) What is the highest level of school that you have finished? 67921-3 High school diploma or GED (RG69383-7) What is your current work situation? 52333-6 Otherwise unemployed but not seeking work (ex. 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 Check all that apply 02647-9 I do not have problems meeting my needs Has lack of transportation kept you from medical appointments, meetings, work or from getting things needed for daily living? 63876-3 No (LA32-8) How often do you see or talk to people that you care about and feel close to? (For example: talking to friends on the phone, visiting friends or family, going to amish or club meetings) 56786-5 More than 5 times a week (GO67050-9) How stressed are you? Stress is when someone feels tense, nervous, anxious, or can\t sleep at night because their mind is troubled 29997-2 Somewhat (VW78098-0) In the past year have you spent more than 2 nights in a row in a senior living, half-way, retirement center, or juvenile correctional facility? 96390-8 No (LA32-8) Do you feel physically and emotionally safe where you currently live? 58357-4 Yes (LA33-6) In the past year, have you been afraid of your partner or ex-partner? 90737-2 No (LA32-8) Are you a refugee? No What country are you from? [place] PRAPARE Score: 5 Social History Social Determinants Social Info Question Answer Notes PRAPARE Date Completed/Updated: 01/13/2024 What is your current housing situation? I have housing Are you worried about losing your housing? No What is the highest level of school that you have finished? High school diploma or GED What is your current work situation? Oth erwise unemployed but not seeking work (ex. 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 Stress is when someone feels tense, nervous, anxious, or can\t sleep at night because their mind is troubled Somewhat In the past year have you sp ent more than 2 nights in a row in a senior living, half-way, retirement center, or juvenile correctional facility? No Are you a refugee? No What country are you from? [place] Do you feel physically and emotionally safe where you currently live? Yes In the past year, have you b een afraid of your partner or ex-partner? No PRAPARE Score: 5 Miscellaneous Social Info Question Answer Notes Method of learning: Preferred method of learning: Demo nstration Primary Social History Social Info Question Answer Notes Living Arrangement Living Arrangement: Independent Ivette ing Is this a supportive environment? Yes Single Question Alcohol Screening How many times in the past year have you had (4 for women, or 5 for men) or more drinks in a day? 0 Employment Status Employment Status: On Disability On Social Security Illicit Substance Usage Illicit Substance Usage: No Alcohol Use Alcohol Use Frequency: Weekly or Daily Type of alcohol consumed Liquor Quanity consumed on those occasions 6 shots of 99 pro of liquor Tobacco Use: Social Info Question Answer Notes Tobacco Control (Standard) Tobacco use: Nonsmoker Section Notes: PRESCRIPTION # FILLED WRITTEN DRUG LABEL QTY DAYS STRENGTH MME [facility] REFILL NO. REFILLS STATE 12/01/2023 11/20/2023 ALPRAZolam 90.0 30 1 MG NA Seiffert [facility] - [id number] [place], [place] NA 0 [place] 1 [id number] 11/17/2023 11/17/2023 Triazolam 15.0 30 0.125 MG NA Jessi Fournier [facility] - [id number] [place], [place] NA 0 [place] 1 [address] 11/12/2023 11/12/2023 ALPRAZolam 90.0 30 0.5 M Problems Problem Type SNOMED Code ICD Code Dates Problem Status W/U Status Risk Notes Problem Tobacco user (712681679) Nicotine dependence, unspecified, uncomplicated (F17.200) Added On:2023 Active confirmed Problem Bipolar II disorder (62474790) Bipolar II disorder (F31.81) Added On:2022 Active confirmed Problem Alcohol use disorder (6566200031) Alcohol use disorder (F10.99) Added On:2023 Onset Date: Active confirmed Problem Adjustment disorder (70725106) Trauma and stressor-related disorder (F43.9) Added On:2022 Active confirmed Problem Tobacco use (177765345) Tobacco use disorder (F17.200) Added On:2023 Active confirmed Problem Opioid use disorder (5820421383) Opioid use disorder (F11.99) Added On:2023 Active confirmed Problem Cluster B personality disorder (6801227) Cluster B personality disorder (F60.89) Added On:2023 Active confirmed Vital Signs Vital Sign Value Notes Appt Date Heart Rate 91 /min 08/19/2024 Respiratory Rate 16 /min 08/19/2024 Blood pressure diastolic 70 mm Hg Oximetry 98 % 08/19/2024 Height 67 in 08/19/2024 Blood pressure systolic 122 mm Hg 08/01 Weight 129 lb 6 oz lbs 08/19/2024 BMI 20.26 kg/m2 08/19/2024 Encounters Date Time Type Facility Location Provider Diagnosis 5 02:40 PM Office Visit, Est Pt., Level 3 ([address]20) [address] [address] Bean Haro Opioid use disorder F11.99 and Nicotine dependence, unspecified, uncomplicated F17.200 5 11:20 AM BEHAV CHNG SMOKING 3-10 MIN (29965) [address] [address] Sherman Cabrera Bipolar II disorder F31.81 ; Cluster B personality disorder F60.89 ; Trauma and stressor-related disorder F43.9 ; Alcohol use disorder F10.99 ; Opioid use disorder F11.99 and Nicotine dependence, unspecified, uncomplicated F17.200 5 02:40 PM BEHAV CHNG SMOKING 3-10 MIN (22087) [address] [address] Sherman Cabrera Bipolar II disorder F31.81 ; Cluster B personality disorder F60.89 ; Trauma and stressor-related disorder F43.9 ; Alcohol use disorder F10.99 ; Opioid use disorder F11.99 and Nicotine dependence, unspecified, uncomplicated F17.200 5 02:20 PM Office Visit, Est Pt., Level 3 (38494) [address] [address] Guerline Cooper Opioid use disorder F11.99 and Nicotine dependence, unspecified, uncomplicated F17.200 5 02:20 PM BEHAV CHNG SMOKING 3-10 MIN (26490) [address] [address] Sherman Cabrera Bipolar II disorder F31.81 ; Cluster B personality disorder F60.89 ; Trauma and stressor-related disorder F43.9 ; Alcohol use disorder F10.99 ; Opioid use disorder F11.99 and Nicotine dependence, unspecified, uncomplicated F17.200 09:00 AM Office Visit, Est Pt., Level 3 (05001) [address] [place] [address] Guerline Cooper Opioid use disorder F11.99 Assessments Encounter Date Diagnosis (ICD Code) Assessment Notes Treat ment Notes Section Notes 06/15/2024 Nicotine dependence, unspecified, uncomplicated (ICD-10 - [...] recently started - called DBT recently at [facility] (plans to establish when able), also ordered [...] mental health CRISIS, please reach out to 268 ([employer] [facility]), 911, go to the emergency department, or contact the [facility] Crisis Unit/Team. Follow up as scheduled in [...] recently started - called DBT recently at [facility] (plans to establish when able), also ordered [...] mental health CRISIS, please reach out to 410 ([employer]), 911, go to the emergency department, or contact the [facility] Crisis [facility]/Team. Follow up as scheduled in [...] recently started - called DBT recently at [facility] (plans to establish when able), also ordered [...] to the emergency department, or contact the [facility]/Team. Follow up as scheduled in [...] to the emergency department, or contact the [facility]/Team. Follow up as scheduled or [...] to the emergency department, or contact the [facility]/Team. Follow up as scheduled or [...] mental health CRISIS, please reach out to 984 ([employer] Suicide and Crisis Lif[facility]), 911, go to the emergency department, or contact the [facility] Crisis Unit/Team. Follow up as scheduled or sooner if necessary. Follow up with PCP and/or other specialists as advised. NEXT STEP: Consider MAT as needed. 06/17/2024 Opioid use disorder (ICD-10 - F11.99) [...] to the emergency department, or contact the [facility] Crisis [facility]/Team. Follow up as scheduled or [...] to the emergency department, or contact the [facility]/Team. Follow up as scheduled or [...] to the emergency department, or contact the [facility]/Team. Follow up as scheduled or [...] the emergency department, or contact the [facility] Crisis Unit/Team. Follow up as scheduled or [...] to the emergency department, or contact the [facility]/Team. Follow up as scheduled or [...] to the emergency department, or contact the [facility] Crisis Unit/Team. Follow up as scheduled or sooner if necessary. Follow up with PCP and/or other specialists as advised. NEXT STEP: Consider MAT as needed. 06/15/2024 Other Potential side effects of buprenorphine [...] services. Contact office with questions or concerns. Plan Of Treatment No Information Insurance Providers Payer Name Payer Address Payer Phone Subscriber Number Group Number Insured Name Patient Relationship to Insured Coverage Start Date Coverage End Date [facility] Claims Department [address] [place] [id number] [phone] [id number] Alba Olvera Self - patient is the insured 3 [facility] [address] [place] [address] [phone] [id number] Alba Olvera Self - patient is the insured 3 Medical (General) History Medical History History ICD Code scoliosis FISCAL OFFICER shunt Idiopathic Intracranial HTN Chronic Back Pain Migraines Alcohol Use Disorder Substance use disorder (mainly opioids Surgical History Surgery Date(Month/Year) x 2 brain surgery x 2 D and C-several REMOVAL OF RESIDUAL CERVIX 05/20 Hospitalization History Reason Date(Month/Year) [facility] for detox off pain meds and alcohol. 12/05/2023-12/08/2023 12/05/2023 [facility] 06/08/23-06/10/23 child mental illness 2006, 2020 see fareed
--- OUTSIDE RECORDS SUMMARY | 2025-05-20 11:31 | XMS_ITS | Encounter Summary ---
Author Organization [facility] Address [address] [place] [address] Care Team Providers Care Patient Coordinator Name Role Phone Yane Estrada-DREDGE MATE Primary Care Provider [phone] Encounter Details Date Type Department Care Team (Late st Contact Info) Description 04/27/2025 Ophth Exam [facility] - Ophthalmology [address] [place] [phone] Agustín Mccarty MD [address] [place] [address] Social History Tobacco Use Types Packs/Day Years Used Date Smoking Tobacco: Former Cigarettes Smokeless Tobacco: Never Comments:vape Alcohol Use Standard Drinks/Week Comments Not [...] and heating? Not hard at all 07/03/2023 [facility] - Occupational Stress [...] place to sleep or slept in a fci (including now)? No 07/03/2023 Comments No Sex and Gender Information Value Date Recorded Sex Assigned at Not on file Legal Sex Female 5:10 PM CDT Gender Identity Not on file Sexual Orientation Not on file documented as of this encounter Functional Status * Is person deaf or have serious hearing difficulty? Answer Date of Assessment Author No 07/03/2023 12:00 AM Shelley Ellsworth, [place] * Is person blind or have serious difficulty seeing? Answer Date of Assessment Author No 07/03/2023 12:00 AM Shelley Ellsworth, RN * Does person have serious difficulty walking/climbing stairs? Answer Date of Assessment Author No 07/03/2023 12:00 AM Shelley Ellsworth, RN * Does person have difficulty dressing/bathing? Answer Date of Assessment Author No 07/03/2023 12:00 AM Shelley Ellsworth, RN * Does person have difficulty doing errands alone? Answer Date of Assessment Author No 07/03/2023 12:00 AM EDM OPERATOR Shelley Brown, RN documented as of this encounter Mental Status * Does person have difficulty concentrating/remembering/making decisions? Answer Entry Date Author No 07/03/2023 12:00 AM EDM OPERATOR Shelley Brown, RN documented in this encounter Plan of Treatment Upcoming Encounters Date Type Department Care Team (Late st Contact Info) Description 06/17/2025 8:00 AM EDM OPERATOR Office Visit [facility] - Neurology [address] [place] [address], [place] [phone] Javi Watson APRN-DREDGE MATE [address] [place] [address] [place] [phone] documented as of this encounter Visit Diagnoses Not on filedocumented in this encounter Care Teams Patient Coordinator Relationship Specialty Start Date End Date Yane Estrada APNP-DREDGE MATE [address] [place] [address] PCP - General Family Medicine 02/08/25 documented as of this encounter
== END 2025-05-20 11:00 | disposition home or self-care (01) ==
LOC: ANHFOHIMG 11:01
PROVIDERS: PCP Nurse Practitioner Family; Visit Provider Surgery
DX: N63.21 Unspecified lump in the left breast, upper outer quadrant (principal)
CPT/HCPCS: 76642